=== PATIENT | female | born 1970 | race African-American/Black ===

== ENCOUNTER 2019-07-10 08:39 | Outpatient (CLI) | payer BC, SELFPAY ==
--- NOTE | 2019-07-10 | ECHO_ITS ---
Patient Info Name: Lurdes Strong Age: 48 years : 1970 Gender: Female Ht: 63 in Wt: 180 lbs BSA: 1.94 m2 HR: 69 bpm BP: 106 / 80 mmHg Heart Rhythm: Sinus Rhythm Technical Quality: Good Exam Date: 07/10/2019 9:23 AM Exam Location: [facility] Patient Status: Outpatient Admit Date: 07/10/2019 Staff Ordering Physician: Azar Sanches MD Sponge Diver: Frank Juarez RDCS, RT Attending Provider: Azar Sanches MD Referring Physician: Myron DOAN; Exam Type: CA echo doppler color flow Study Info Indications R01.1 - Cardiac murmur, unspecified Complete two-dimensional, color flow and Doppler transthoracic echocardiogram is performed. Summary 1. Left ventricular chamber size, wall thickness, systolic and diastolic function are normal with no regional wall motion abnormalities with an estimated ejection fraction of 60-65%. Global longitudinal strain is -21%, normal. 2. Borderline right ventricular enlargement. 3. Borderline dilatation of the inferior vena cava, 1.9 cm. 4. Trace mitral, tricuspid and pulmonic insufficiency. 5. Normal sinus rhythm. Left Ventricle Left ventricular chamber size, wall thickness, systolic and diastolic function are normal with no regional wall motion abnormalities with an estimated ejection fraction of 60-65%. Global longitudinal strain is -21%, normal. Left ventricular chamber dimension is normal. Left ventricular systolic function is normal, estimated at 60-65%. There is no increased left ventricular wall thickness. Left ventricular septal wall motion is normal. The left ventricular diastolic function is normal. Right Ventricle Right ventricular chamber dimension is mildly enlarged. Right ventricular systolic function is normal. Left Atria Left atrial chamber dimension is normal. Right Atria Right atrial chamber dimension is normal. Aortic Valve The aortic valve is trileaflet. There is no aortic valve sclerosis. There is no aortic valve stenosis. There is no aortic valve regurgitation. Pulmonic Valve The pulmonic valve is normal. There is no pulmonic valve stenosis. There is trace pulmonic regurgitation. Mitral Valve The mitral valve has normal leaflets. There is no mitral valve stenosis. There is trace mitral valve regurgitation. Tricuspid Valve The tricuspid valve leaflets are normal. There is no significant tricuspid valve stenosis. There is trace tricuspid valve regurgitation. No pulmonary hypertension, estimated pulmonary arterial systolic pressure is Empty. Pericardium/Pleural The pericardium appears normal. There is no pericardial effusion. Inferior Vena Cava Normal inferior vena cava with >50% collapse upon inspiration consistent with Empty right atrial pressure, 10 mmHg. Aorta The aortic root size at the sinus of Valsalva is normal. The prox ascending aorta size is normal. Left Ventricular Outflow Tract Name Value Normal LVOT 2D LVOT Diameter 2.0 cm LVOT Doppler LVOT Peak Gradient 3 mmHg LVOT Mean Gradient 2 mmHg LVOT VTI 17
== END 2019-07-10 08:40 | disposition home or self-care (01) ==
PROVIDERS: PCP Emergency Medicine; Visit Provider Emergency Medicine
DX: R01.1 Cardiac murmur, unspecified (principal)
CPT/HCPCS: 93306

== ENCOUNTER 2019-07-11 07:28 | Outpatient (CLI) | payer BC, SELFPAY ==
--- NOTE | ~2019-07-11 | MM_ITS ---
EXAMINATION: MM screening ish BI w reece HISTORY: Screening mammogram TECHNIQUE: Craniocaudal and mediolateral oblique 3-D tomosynthesis images were obtained and synthetic 2-D images were generated. CAD analysis was submitted and interpreted. COMPARISON: No prior mammogram is available for comparison at this institution. BREAST PARENCHYMAL COMPOSITION: The breasts are heterogeneously dense, which may obscure small masses . FINDINGS: There is no evidence of suspicious mass, calcification, or architectural distortion to sugg est malignancy in either breast. There has been no suspicious interval change. IMPRESSION: 1. No mammographic evidence of malignancy. 2. Recommend routine screening mammography in one year. BI-RADS Category 1: Negative Reviewed, dictated and finalized at location A.
== END 2019-07-11 07:29 | disposition home or self-care (01) ==
PROVIDERS: PCP Emergency Medicine; Visit Provider Emergency Medicine
DX: Z12.31 Encounter for screening mammogram for malignant neoplasm of breast (principal)
CPT/HCPCS: 77063; 77067

== ENCOUNTER 2019-07-16 11:49 | Outpatient (CLI) | payer BC, SELFPAY ==
--- NOTE | ~2019-07-16 | US_ITS ---
EXAMINATION: US thyroid DATE: 07/16/2019 12:31 INDICATION: Right thyroid nodule. TECHNIQUE: Multiple ultrasound images of the thyroid were obtained. COMPARISON: None. FINDINGS: The right thyroid lobe measures 7.0 x 3.2 x 3.0 cm. The left thyroid lobe measures 4.4 x 1.5 x 1.6 c m. There are numerous confluent solid nodules throughout right thyroid lobe. For example in the righ t thyroid lobe, there is a 3.0 cm solid, isoechoic, svhbjl-dbds-jwlh nodule with lobulated margin and punctate echogenic foci (TI-RADS TR5). In the right thyroid lobe, there is a 2.7 cm solid, isoechoic , kssas-arxi-tgns nodule with smooth margin without echogenic foci (TR3). In the right thyroid lobe, there is a 2.7 cm solid, isoechoic, voymr-fpwf-ckyd nodule with smooth margin without echogenic foci (TR3). IMPRESSION: 1. Multinodular goiter. Ultrasound-guided fine-needle aspiration of the 2 largest right thyroid nodul es is recommended. Reviewed, dictated and finalized at location A. IMPRESSION: 1. Multinodular goiter. Ultrasound-guided fine-needle aspiration of the [address] right thyroid nodules is recommended.
== END 2019-07-16 11:50 | disposition home or self-care (01) ==
PROVIDERS: PCP Emergency Medicine; Visit Provider Emergency Medicine
DX: E04.2 Nontoxic multinodular goiter (principal)
CPT/HCPCS: 76536

== ENCOUNTER 2019-08-01 13:20 | Outpatient (CLI) | payer BC, SELFPAY ==
--- NOTE | ~2019-08-01 | US_ITS ---
EXAMINATION: 1. US FNA additional 2. US FNA w image guidance DATE: 08/01/2019 15:36 INDICATION: Thyroid nodules. TECHNIQUE: The procedure and its benefits, risks, and benefits were discussed with the patient. Risks specifical ly discussed included bleeding. The patient verbalized understanding of the risks and agreed to proce ed. The neck was prepped and draped in the usual sterile manner. 1% lidocaine was used for local ane sthesia. Five passes were made with a 25G needle into the lesion in superior right thyroid lobe. Ap propriate needle location was documented with continuous sonographic guidance. 5 passes were made with a 25-gauge needle into the lesion in mid right thyroid lobe with ultrasound g uidance. There were no immediate complications. The patient understood to call the ordering physician for results after a week and a half and verbalized that understanding. FINDINGS: Grayscale ultrasound images demonstrate needles advanced into a 2.7 cm nodule in superior right thyro id lobe for biopsy. Grayscale ultrasound images demonstrate needles advanced into a 3.0 cm nodule in the right thyroid lobe. IMPRESSION: 1. Ultrasound-guided fine needle aspiration of a nodule in superior right thyroid lobe. 2. Ultrasound-guided fine-needle aspiration of a nodule in mid right thyroid lobe. Reviewed, dictated and finalized at location A. IMPRESSION: 1. Ultrasound-guided fine needle aspiration of a nodule in superior right thyr oid lobe. 2. Ultrasound-guided fine-needle aspiration of a nodule in mid right thyroid lo be.
== END 2019-08-01 13:21 | disposition home or self-care (01) ==
LOC: ANHIMG 13:23
PROVIDERS: PCP Emergency Medicine; Visit Provider Emergency Medicine
DX: E04.2 Nontoxic multinodular goiter (principal)
CPT/HCPCS: 10005; 10006; 88108; 88173; 88305

== ENCOUNTER 2021-08-03 22:25 | Emergency (ER) | payer OTHER, SELFPAY ==
[2021-08-03 22:32] VITALS: BP 105/74; PULSE 81; RESP 20; TEMP 36.1; O2SAT 97
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
[2021-08-04] MEDS: ACETAMINOPHEN 325 MG TABLET 650 MG PO (01:26)
[2021-08-04] MEDS: IBUPROFEN 600 MG TABLET PO (01:26)
[2021-08-04 01:56] VITALS: BP 110/68; PULSE 61; RESP 16; O2SAT 99
== END 2021-08-04 01:57 | disposition home or self-care (01) ==
PROVIDERS: Emergency Provider Emergency Medicine; PCP Emergency Medicine
DX: S39.012A Strain of muscle, fascia and tendon of lower back, initial encounter (principal); S16.1XXA Strain of muscle, fascia and tendon at neck level, initial encounter; X58.XXXA Exposure to other specified factors, initial encounter; Y92.212 Middle school as the place of occurrence of the external cause
CPT/HCPCS: 99283; A9270

== ENCOUNTER → 2022-08-31 13:27 | Outpatient (CLI) | payer OTHER, SELFPAY ==
--- NOTE | ~2022-08-31 | XR_ITS ---
EXAM: XR lumbar spine 2-3V DATE: 08/31/2022 14:51 HISTORY: LBP, Pain in left knee joint . COMPARISON: None available. FINDINGS: Decreased mineralization. Mild lumbar scoliosis. 5 nonrib-bearing lumbar-type vertebral bod ies. Pedicles intact. Trace anterolisthesis at L4-5 that increases to 3 mm in flexion. Vertebral body heights preserved. Mild multilevel disc space narrowing and marginal osteophytosis, most pronounced at L1-2. Mild multilevel lower lumbar facet hypertrophy and sclerosis. No fracture or dislocation. IMPRESSION: Osteopenia. Grade 1 dynamic listhesis at L4-5. Multilevel mild lumbar degenerative disc d isease and lower lumbar facet arthropathy. Reviewed, dictated and finalized at location K. IMPRESSION: Osteopenia. Grade 1 dynamic listhesis at L4-5. Multilevel mild lumb ar degenerative disc disease and lower lumbar facet arthropathy.
--- NOTE | ~2022-08-31 | XR_ITS ---
EXAM: XR knee LT 3V DATE: 08/31/2022 14:51 HISTORY: LBP, Pain in left knee joint . COMPARISON: None available. FINDINGS: Normal mineralization. No fracture or dislocation. No lytic or blastic lesion. Mild medial joint space narrowing. Mild tricompartmental osteophytosis. No erosion or periosteal change. Soft ti ssues within normal limits. IMPRESSION: Mild tricompartmental left knee osteoarthritis. Reviewed, dictated and finalized at location K.
== END ==
PROVIDERS: PCP Internal Medicine; Visit Provider Internal Medicine
DX: E04.9 Nontoxic goiter, unspecified (principal); Z13.820 Encounter for screening for osteoporosis; M85.88 Other specified disorders of bone density and structure, other site; M47.26 Other spondylosis with radiculopathy, lumbar region; M17.12 Unilateral primary osteoarthritis, left knee
CPT/HCPCS: 72100; 73562

== ENCOUNTER → 2022-09-08 15:56 | Outpatient (CLI) | payer OTHER, SELFPAY ==
--- NOTE | ~2022-09-08 | US_ITS ---
Thyroid ultrasound. Clinical History: Thyroid nodule COMPARISON: 07/16/2019 Findings: Real-time sonography of the thyroid gland was performed. The right lobe measures 6.5 x 4.7 x 5.2 cm. The left lobe measures 4.3 x 2.0 x 1.6 cm. The isthmus is 5 mm in AP diameter. There is a dominant heterogeneous mixed hyperechoic and isoechoic nodule at the right midpole measuri ng 3.6 x 4.2 x 3.2 cm in size. There is a solid mildly hypoechoic nodule at the right upper pole kennedy uring 2.1 x 1.8 x 1.9 cm. There is a 0.9 cm hypoechoic solid nodule at the left upper pole. Impression: Multiple thyroid nodules are similar in distribution to prior exam, however the dominant nodule in th e right thyroid lobe is increased in size. Consider FNA of this dominant nodule, if not previously pe rformed. Reviewed, dictated and finalized at location . Impression: Multiple thyroid nodules are similar in distribution to prior exam, however the dominant nodule in the right thyroid lobe is increased in size. Consider FNA o f this dominant nodule, if not previously performed.
== END ==
PROVIDERS: PCP Internal Medicine; Visit Provider Internal Medicine
DX: E04.2 Nontoxic multinodular goiter (principal)
CPT/HCPCS: 76536

== ENCOUNTER → 2022-12-12 12:31 | Outpatient (CLI) | payer OTHER, SELFPAY ==
--- NOTE | ~2022-12-12 | MM_ITS ---
EXAMINATION: MM screening ish BI w reece HISTORY: Screening mammogram TECHNIQUE: Craniocaudal and mediolateral oblique 3-D tomosynthesis images were obtained and synthetic 2-D images were generated. CAD analysis was submitted and interpreted. COMPARISON: 07/11/2019 Bilateral screening mammogram BREAST PARENCHYMAL COMPOSITION: The breasts are heterogeneously dense, which may obscure small masses . FINDINGS: There is no evidence of suspicious mass, calcification, or architectural distortion to sugg est malignancy in either breast. There has been no suspicious interval change. IMPRESSION: 1. No mammographic evidence of malignancy. 2. Recommend routine screening mammography in one year. BI-RADS Category 1: Negative Reviewed, dictated and finalized at location A.
--- NOTE | ~2022-12-12 | DEXA_ITS ---
Bone Density Report Name: ERVIN ARENAS Age: 52 Sex: Female Ethnicity: Black Date of : 1970 Indication: postmenopausal; screening for osteoporosis; Referring Provider: JUAN LUIS, [facility] Study: Bone densitometry was performed. Exam Date: December 12, 2022 Accession number: [id number] Bone Density: Region BMD T-score Z-score Classification AP Spine (L1-L4) 0.978 -0.6 -0.5 Normal Femoral Neck (Left) 0.838 -0.1 -0.1 Normal Total Hip (Left) 0.893 -0.4 -0.4 Normal Femoral Neck (Right) 0.844 0.0 -0.1 Normal Total Hip (Right) 0.880 -0.5 -0.5 Normal Total Hip Mean 0.887 -0.5 -0.5 Normal World Health Organization criteria for BMD impression classify patients as: Normal (T-score at or above -1.0), Osteopenia (T-score between -1.0 and -2.5), or Osteoporosis (T-score at or below -2.5). 10-year Fracture Risk: FRAX not reported because: All T-scores for Spine Total, Hip Total, Femoral Neck at or above -1.0 Clinical Information Provided by Patient: Has used the following medications: Vitamin D, MTV Patient maximum height was 63.75 Menopause Age: 51 No regular weight bearing exercise Drinks caffeinated beverages Onset of menses at age 13 Number of children 4 Impression: The patient has normal bone mass. Discussion: BONE DENSITY IS ABOVE THE MINIMUM DESIRABLE LEVEL AT ALL SKELETAL SITES TESTED. This patient?s bone mineral density is above the minimum desirable level (T-score -1.0 or better) at all sites measured. The patient should follow a healthful lifestyle (good nutrition with adequate calcium and vitamin D, and appropriate weight-bearing exercise). Follow-Up: Consider repeating this study in 5 years or sooner if there is some new clinical indication. Reported by: LEONIDAS on 12/12/2022 1:29:00 PM. Reviewed, dictated and finalized at location AAlvin HERNANDEZ
== END ==
PROVIDERS: PCP Internal Medicine; Visit Provider Internal Medicine
DX: Z12.31 Encounter for screening mammogram for malignant neoplasm of breast (principal); Z13.820 Encounter for screening for osteoporosis; Z78.0 Asymptomatic menopausal state
CPT/HCPCS: 77063; 77067; 77080

== ENCOUNTER 2023-06-06 00:54 | Emergency (ER) | payer OTHER, SELFPAY ==
--- NOTE | ~2023-06-06 | XR_ITS ---
Portable chest x-ray Comparison: 01/27/2014 Clinical History: Shortness of breath Findings: Lungs are clear, without focal consolidation or pleural effusion. Cardiomediastinal silho uette is stable. Bones and soft tissues are unremarkable. Impression: Normal chest. Reviewed, dictated and finalized at location . Impression: Normal chest.
--- NOTE | 2023-06-06 00:55 | ECG_ITS ---
Measurements Intervals [place] Rate: 67 P: 67 SC: 199 QRS: -4 QRSD: 105 T: 27 QT: 402 QTc: 426 Interpretive Statements SINUS RHYTHM INCOMPLETE RIGHT BUNDLE BRANCH BLOCK BORDERLINE ECG NO PREVIOUS ECG AVAILABLE FOR COMPARISON Electronically Signed On 06-06-2023 6:27:34 CDT by Addison Graves D.O.
[2023-06-06] MEDS: ASPIRIN 81 MG CHEWABLE TABLET 324 MG PO (01:05)
[2023-06-06 01:07] VITALS: BP 145/87; PULSE 68; RESP 18; TEMP 36.2; O2SAT 100
[2023-06-06 01:07] LABS: Basophils Percent Auto 0.5 % (0.2-1.2); Eosinophils Absolute Auto 0.1 K/mm3 (0-0.3); Eosinophils Percent Auto 1.1 % (0-4.4); Hematocrit 42.4 % (37.0-47.0); Hemoglobin 13.4 g/dL (12.0-15.0); Immature Granulocyte Absolute 0.01 K/mm3 (0.00-0.031); Immature Granulocyte Percent A 0.2 % (0-0.5); Lymphocytes Absolute Auto 3.15 K/mm3 (0.9-3.2); Lymphocytes Percent Auto 48.7 % (18.3-44.2); Mean Corpuscular HGB Conc 31.6 g/dl (32-36); Mean Corpuscular Hemoglobin 30.6 pg (26-34); Mean Corpuscular Volume 96.8 fl (80-100); Mean Platelet Volume 9.3 fl (7.4-10.4); Monocytes Absolute Auto 0.4 K/mm3 (0.1-0.6); Monocytes Percent Auto 5.9 % (2.6-8.5); Neutrophils Absolute Auto 2.8 K/mm3 (1.3-6.7); Neutrophils Percent Auto 43.6 % (45.5-73.1); Platelet Count Result 281 k/mm3 (150-375); Red Blood Count 4.38 M/mm3 (4.2-5.4); Red Cell Distribution Width 12.2 % (11.5-14.5); White Blood Count 6.5 K/mm3 (4.5-10.0)
[2023-06-06 01:12] VITALS: PULSE 76
[2023-06-06 01:14] VITALS: BP 145/87; PULSE 70; RESP 18; TEMP 36.2; O2SAT 100
[2023-06-06 01:18] LABS: INR 0.9
[2023-06-06 01:19] LABS: Alanine Aminotransferase 16 U/L (6-35); Albumin Level 4.7 g/dL (3.5-5.1); Alkaline Phosphatase 71 U/L (38-126); Anion Gap 4 mmol/L (8-16); Aspartate Amino Transferase 24 U/L (14-36); Bilirubin,Total 0.4 mg/dL (0.2-1.3); Blood Urea Nitrogen 9 mg/dL (7-17); Calcium 9.9 mg/dL (8.4-10.2); Carbon Dioxide 33 mmol/L (22-30); Chloride 104 mmol/L (98-107); Estimated CRCL calculation 73 ml/min; Estimated Glomerular Filt Rate > 60; Glucose 105 mg/dL (65-110); Lipase 39 U/L (23-300); Partial Thromboplastin Time 31.6 Seconds (22.3-36.8); Potassium 3.6 mmol/L (3.4-5.0); Sodium 141 mmol/L (137-145)
[2023-06-06 01:30] LABS: Troponin I < 0.012 ng/mL (0.000-0.034)
--- NOTE | 2023-06-06 01:36 | PC.NURSE ---
Pt is refusing nitro tablet(s) at this time. Pt states she believes her chest pain is an adverse reaction to iodine that she was given yesterday for a ct scan so she is afraid to keep putting things in her body . She states she wants to see what the test results say first . EDP aware.
--- NOTE | 2023-06-06 01:47 | ED.GENADULT ---
HPI - General Adult General Chief complaint: Chest Pain Stated complaint: Chest heaviness, SOB Time Seen by Provider: 06/06/23 01:02 History of Present Illness HPI narrative: Patient 52-year-old female who presents emergency department with chief complaint of chest heaviness and shortness of breath patient reports that she had a thyroidectomy on the of last month patient states since then she has been having some difficulty with shortness of breath but reports has been getting some more shortness of breath. The patient states that she was seen at [facility] in the last day or [address] scan to look for pulmonary embolism the patient reports she was told this was negative for PE. Patient states that it feels like there is heaviness in her chest and reports that is worse with exertion Related Data Allergies Allergy/AdvReac Type Severity Reaction Status Date / Time No Known Allergies Allergy Verified 06/06/23 01:16 Review of Systems Review of Systems: A 10 system review of systems was completed on the patient and is negative except for what is stated in the HPI. Nursing and ancillary documentation was reviewed. PMFSH Past Medical History Medical History No significant past medical history Surgical History Surgical History H/O section x4 History of dilation and curettage Social History Social History Smoking status: Never smoker Living arrangements: with family Gender identity (if verbalized by the patient): Female Exam Narrative: GENERAL: Well-appearing, well-nourished, and in no acute distress. HEAD: Normocephalic, atraumatic. EYES: PERRLA and EOMI. ENT: Nares clear, no rhinorrhea or epistaxis. Mucous membranes moist. NECK: Supple. CHEST: Clear to auscultation. No respiratory distress. HEART: Regular rate and rhythm. No murmur heard. Normal peripheral pulses. ABDOMEN: Soft, nontender, nondistended, normal active bowel sounds. EXTREMITIES: Normal range of motion. No edema. SKIN: Warm, dry, no rash. NEURO: No focal deficits. Alert and oriented x3. PSYCH: Normal mood and affect. Course Vital Signs Vital signs: Vital Signs Temperature 36.2 C L 06/06/23 01:07 Pulse Rate 68 06/06/23 01:07 Respiratory Rate 18 06/06/23 01:07 Blood Pressure 145/87 H 06/06/23 01:07 Pulse Oximetry 100 06/06/23 01:07 Oxygen Delivery Room Air 06/06/23 01:07 Temperature 36.2 C L 06/06/23 01:14 Pulse Rate 62 06/06/23 03:36 Respiratory Rate 17 06/06/23 03:36 Blood Pressure 127/80 06/06/23 03:36 Pulse Oximetry 98 06/06/23 03:36 Oxygen Delivery Room Air 06/06/23 01:14 Medical Decision Making MDM Narrative Medical decision making narrative: Differential diagnosis includes ACS, pneumothorax, pulmonary embolism. Records were obtained from [facility] that showed a pulmonary embolism study that was negative Laboratory studies were obtained showed normal CBC CMP was within normal limits BNP was normal troponin was 0 hour in the 3 hour Chest x-ray showed no pneumothorax EKG showed incomplete right bundle branch block rate of [address] elevation or ST depression Vital Signs Vital Signs: Vital Signs Temperature 36.2 C L 06/06/23 01:07 Pulse Rate 68 06/06/23 01:07 Respiratory Rate 18 06/06/23 01:07 Blood Pressure 145/87 H 06/06/23 01:07 Pulse Oximetry 100 06/06/23 01:07 Oxygen Delivery Room Air 06/06/23 01:07 Temperature 36.2 C L 06/06/23 01:14 Pulse Rate 62 06/06/23 03:36 Respiratory Rate 17 06/06/23 03:36 Blood Pressure 127/80 06/06/23 03:36 Pulse Oximetry 98 06/06/23 03:36 Oxygen Delivery Room Air 06/06/23 01:14 Lab Data 06/06/23 01:02 06/06/23 01:02 Labs: Lab Results
[2023-06-06 02:44] LABS: NT Pro B Type Natriuretic Pept 36 pg/mL (19.9-100)
[2023-06-06 03:36] VITALS: BP 127/80; PULSE 62; RESP 17; O2SAT 98
[2023-06-06 05:15] LABS: Troponin I < 0.012 ng/mL (0.000-0.034)
[2023-06-06 05:45] VITALS: BP 133/85; PULSE 64; RESP 17; O2SAT 100
== END 2023-06-06 05:45 | disposition home or self-care (01) ==
PROVIDERS: Emergency Provider Emergency Medicine; PCP Internal Medicine
DX: R07.89 Other chest pain (principal); I45.10 Unspecified right bundle-branch block
CPT/HCPCS: 36415; 71045; 80053; 83690; 83880; 84484; 85025; 85610; 85730; 93005; 99284; A9270

== ENCOUNTER 2024-10-06 18:24 | Emergency (ER) | payer SELFPAY ==
--- OUTSIDE RECORDS SUMMARY | 2024-10-06 18:27 | XMS_ITS | Data Portability ---
Author Organization [facility] [employer] Address [address] [address] Assessment Encounter Date Assessment Date Assessment LastModified by Organization Details LastModified Time 05/30/2023 05/30/2023 Patient presente d for follow up. Studies ordered as below. Discussed plan with patient/caregiver , who expressed understanding. Follow up as noted below. [email or web address] Not available 05/30/2023 13:43:34 08/07/2023 08/07/2023 Patient presente d for follow up. Studies ordered as below. Discussed plan with patient/caregiver , who expressed understanding. Follow up as noted below. Not available 08/07/2023 13:00:27 03/17/2024 03/17/2024 Recommends healthy nutrition, including a diet rich in fruits and vegetables, minimizing simple carbohydrates, salt, and saturated fats. Encouraged regular cardiovascular exercise such as walking at least 30 minutes daily, 5 times per week. Not available 03/17/2024 15:36:04 09/15/2024 09/15/2024 Recommends healthy nutrition, including a diet rich in fruits and vegetables, minimizing simple carbohydrates, salt, and saturated fats. Encouraged regular cardiovascular exercise such as walking at least 30 minutes daily, 5 times per week. Not available 09/15/2024 13:37:38 Plan of Treatment Reminders Order Date Submit Date Provider Last Modified By Organization Details Last Modified Time Details Appointments ESTABLISH ED PATIENT 15 2024 10:15A M Frank Mcknight MD Not available Not available Not available Lab lipid panel, serum 2024 025 [employer] [facility], [facility], [address], [place], [address], 09/15/2024 13:40:04 CMP, serum or plasma 2024 025 [facility], [address], [address], [place], [address], 09/15/2024 13:40:04 TSH + free T4, serum 2024 025 [facility], [address], [address], [place], [address], 09/15/2024 13:40:04 T3, free, serum or plasma 2024 025 [facility] [employer] [facility], [address], [address], [place], [address], 09/15/2024 13:40:04 vitamin D, 25-hydrox y, total, serum 2024 025 [facility] [employer] [facility], [address], [address], [place], [address], 09/15/2024 13:40:04 CBC w/ auto diff 2024 025 [facility] [employer] [facility], [address], [address], [place], [address], 09/15/2024 13:40:04 PT/PTT, plasma 2023 024 [employer] [facility], [address], [address], [place], [address], 04/13/2024 08:58:29 TSH + free T4, serum 2023 024 [employer] [facility], [address], [place], [address], 04/13/2024 08:58:31 T3, free, serum or plasma 2023 024 [facility], [address], [address], [place], [address], 04/13/2024 08:58:33 CBC w/ auto diff 2023 024 [facility], [address], [address], [place], [address], 04/13/2024 08:58:32 lipid panel, serum 2023 024 [facility], [address], [address], [place], [address], 04/13/2024 08:58:28 CMP, serum or plasma 2023 024 [facility], [address], [address], [place], [address], 04/13/2024 08:58:31 vitamin D, 25-hydrox y, total, serum 2023 [facility], [address], [address], [place], [address], 04/13/2024 08:58:34 vitamin D, 25-hydrox y, total, serum 2023 024 [facility], [address], [address], [place], [address], 11/01/2023 13:05:44 CBC w/ auto diff 2023 024 [facility], [address], [address] [address], [place], [address], 11/01/2023 13:05:51 PT/PTT, plasma 2023 024 [facility], [address], [address], [place], [address], 11/01/2023 13:05:45 TSH + free T4, serum 2023 024 [employer] [facility], [address], [address], [place], [address], 11/01/2023 13:05:52 T3, free, serum or plasma 2023 024 [facility] [facility], [address], [address], [place], [address], 11/01/2023 13:05:39 CBC w/ auto diff 2023 024 [facility] [facility], [address], [address], [place], [address], 09/13/2023 03:29:18 lipid panel, serum 2023 024 [facility], [address], [address], [place], [address], 09/13/2023 03:29:15 CMP, serum or plasma 2023 024 [facility] [facility], [address], [address], [place], [address], 09/13/2023 03:29:17 vitamin D, 25-hydrox y, total, serum 2023 024 [facility] [facility], [address], [address], [place], [address], 09/13/2023 03:29:19 TSH + free T4, serum 2023 024 [facility] [facility], [address], [address], [place], [address], 09/13/2023 03:29:16 T3, free, serum or plasma 2023 024 [facility] [facility], [address], [address], [place], [address], 09/13/2023 03:29:18 CMP, serum or plasma 2023 024 [facility] [facility], [address], [address], [place], [address], 06/01/2023 11:17:49 D-dimer, quant, plasma 2023 024 [facility] [employer] [facility], [address], [address], [place], [address], 05/30/2023 14:37:25 CBC w/ auto diff 2023 024 [facility] [facility], [address], [address], [place], [address], 07/12/2023 00:26:03 vitamin D, 25-hydrox y, total, serum 2023 024 [facility] [employer] [facility], [address], [address], [place], [address], 05/30/2023 14:37:27 TSH + free T4, serum 2023 024 [facility] [employer] [facility], [address], [address], [place], [address], 05/30/2023 14:37:24 T3, free, serum or plasma 2023 024 [facility], [address], [address], [place], [address], 06/01/2023 11:17:50 Referral gynecolog ist referral 2024 025 [facility], [address], [address], [place], [address], 09/18/2024 11:26:09 sleep medicine referral - -- CPAP Titration 2024 025 IZABELA Garcia And/Or Dr. Herrera - [facility], [address] , [address], [place], [address], 09/15/2024 13:52:55 gynecolog ist referral 2023 024 , [address], [address], [place], [address], 04/14/2024 08:22:50 sleep medicine referral 2023 024 SARMAD Garcia And/Or Dr. Herrera - [facility], [address], [address], [place], [address], 09/04/2024 15:36:44 gynecolog ist referral 2023 024 , [address], [address], [place], [address], 09/04/2023 08:19:21 podiatris t referral 2023 024 [facility], [address] [address], [address], [place], [address], 08/01/2024 08:21:43 podiatris t referral 2023 024 [facility], [address], [address], [place], [address], 05/26/2024 08:17:56 Procedures None recorded. Surgeries None recorded. Imaging XR, hip + pelvis, bilateral [address] [facility], [address], [place], [address], 09/22/2024 08:08:36 CT, chest, w/o contrast [address] [facility], [address] [facility], [place], [address], 09/22/2024 08:08:36 XR, hip + pelvis, bilateral [address] [facility], [address], [place], [address], 03/25/2024 10:57:20 CT, chest, w/o contrast 2023 024 [facility], [address], [place], [address], 03/25/2024 10:57:20 XR, hip + pelvis, bilateral [address] [facility], [address], [place], [address], 11/08/2023 09:22:18 CT, chest, w/o contrast [address] [facility], [address], [place], [address], 11/26/2023 08:18:54 MAMMO, screening , digital, bilateral 2023 024 [facility], [address], [place], [address], 03/21/2024 11:34:30 electroca rdiogram 2023 024 [facility], [facility], [address], [place], [address], 05/30/2023 15:54:31 XR, foot, 3 or more view 2023 024 [facility], [address], [address], [place], [address], 06/06/2023 08:16:38 Medication Orders levothyro xine 137 mcg tablet [address] [facility], [address] [place], [address], 09/15/2024 13:41:06 levothyro xine 137 mcg tablet 2023 024 [facility], [address] [place], [address], 03/17/2024 16:08:07 levothyro xine 137 mcg tablet 2023 024 pc1 [facility], [address] [place], [address], 03/17/2024 15:46:49 levothyro xine 137 mcg tablet 2023 024 pc1 [facility], [address] [place], [address], 05/30/2023 14:37:04 Patient TargetsNo targets recorded. Patient Instructions Encounter Date Encounter Id Patient Instructions Last Modified By Organization Details Last Modified Time 05/30/2023 [id number] advised to lose weight lincoln Not available 05/30/2023 14:37:04 08/07/2023 [id number] advised to lose weight Not available 08/07/2023 12:59:40 11/01/2023 [id number] heart-healthy diet: care instructions lincoln Not available 11/01/2023 13:01:57 03/17/2024 [id number] advised to lose weight Not available 03/17/2024 16:07:58 Discussed and explained advance directives such as standard forms to the . Face to face discussion lasted for a duration of ___ minutes. [email or web address] Not available 03/17/2024 15:24:14 09/15/2024 [id number] advised to lose weight lincoln Not available 09/15/2024 13:40:04 Reason for Referral Service Order Dispatcher Chief Referral for Pain in left foot Referring Physician: Frank Mcknight, Internal Medicine, Encounter Date: 05/30/2023 Service Order Dispatcher Chief Referral for Pain in left foot Referring Physician: Frank Mcknight, Internal Medicine, Encounter Date: 08/07/2023 [employer] Referral for Gy necologic examination Referring Physician: Frank Mcknight, Internal Medicine, Encounter Date: 08/07/2023 [employer] Referral for Gy necologic examination Referring Physician: Frank Mcknight Internal Medicine, Encounter Date: 03/17/2024 Sleep Medicine Referral for Obstructive sleep apnea of adult Referring Physician: Frank Mcknight Internal Medicine, Encounter Date: 03/17/2024 [employer] Referral for Gy necologic examination Referring Physician: Frank Mcknight Internal Medicine, Encounter Date: 09/15/2024 Sleep Medicine Referral for Obstructive sleep apnea syndrome -- CPAP Titration Referring Physician: Frank Mcknight Internal Medicine, Encounter Date: 09/15/2024 Results Created Date Observation Date Name Description Value Unit Range Abnormal Flag Note LastModifiedBy Organization Detail LastModifiedTime 05/30/19 24 05/30/2023 CBC WITH AUTO- DIFFE RENTI AL WBC 5.1 10*3/ uL 3.4-10 .8 Not Available [facility] [address] [facility] [address], [place], [address], 06/01/2023 11:17:48 05/30/19 24 05/30/2023 CBC WITH AUTO- DIFFE RENTI AL RBC 4.28 10*6/ uL 3.80-5 .30 Not Available [facility] [address] [facility] [address], [place], [address], 06/01/2023 11:17:48 05/30/19 24 05/30/2023 CBC WITH AUTO- DIFFE RENTI AL HGB 13.2 g/dL 11.1-1 5.9 Not Available [facility] [address] [facility] [address], [place], [address], 06/01/2023 11:17:48 05/30/19 24 05/30/2023 CBC WITH AUTO- DIFFE RENTI AL HCT 41.5 % 34.0-4 6.6 Not Available [facility] [address] [facility] [address], [place], [address], 06/01/2023 11:17:48 05/30/19 24 05/30/2023 CBC WITH AUTO- DIFFE RENTI AL MCV 97 fL 79-97 Not Available [facility] [address], [place], [address], 06/01/2023 11:17:48 05/30/19 24 05/30/2023 CBC WITH AUTO- DIFFE RENTI AL MCH 30.8 pg 26.6-3 3.0 Not Available [facility] [address], [place], [address], 06/01/2023 11:17:48 05/30/19 24 05/30/2023 CBC WITH AUTO- DIFFE RENTI AL MCHC 31.8 g/dL 31.5-3 5.7 Not Available [facility] [address], [place], [address], 06/01/2023 11:17:48 05/30/19 24 05/30/2023 CBC WITH AUTO- DIFFE RENTI AL RDW 12.9 % 11.5-1 4.5 Not Available [facility] [address], [place], [address], 06/01/2023 11:17:48 05/30/19 24 05/30/2023 CBC WITH AUTO- DIFFE RENTI AL platelets 351 10*3/ uL 150-40 0 Not Available [facility] [address], [place], [address], 06/01/2023 11:17:48 05/30/19 24 05/30/2023 CBC WITH AUTO- DIFFE RENTI AL MPV 10 fL 9-13 Not Available [facility] [address], [place], [address], 06/01/2023 11:17:48 05/30/19 24 05/30/2023 CBC WITH AUTO- DIFFE RENTI AL neutrophils 43.1 % 40.0-7 4.0 Not Available [facility] [address], [place], [address], 06/01/2023 11:17:48 05/30/19 24 05/30/2023 CBC WITH AUTO- DIFFE RENTI AL absolute neutrophils 2.21 10*3/ uL 1.40-7 .00 Not Available [facility] [address] [facility] [address], [place], [address], 06/01/2023 11:17:48 05/30/19 24 05/30/2023 CBC WITH AUTO- DIFFE RENTI AL lymphocytes 50.0 % 14.0-4 6.0 high Not Available [facility] [address] [facility] [address], [place], [address], 06/01/2023 11:17:48 05/30/19 24 05/30/2023 CBC WITH AUTO- DIFFE RENTI AL absolute lymphocytes 2.56 10*3/ uL 0.70-3 .10 Not Available [facility] [address] [facility] [address], [place], [address], 06/01/2023 11:17:48 05/30/19 24 05/30/2023 CBC WITH AUTO- DIFFE RENTI AL monocytes 5.1 % 4.0-12 .0 Not Available [facility] [address] [facility] [address], [place], [address], 06/01/2023 11:17:48 05/30/19 24 05/30/2023 CBC WITH AUTO- DIFFE RENTI AL absolute monocytes 0.26 10*3/ uL 0.10-0 .90 Not Available [facility] [address] [facility] [address], [place], [address], 06/01/2023 11:17:48 05/30/19 24 05/30/2023 CBC WITH AUTO- DIFFE RENTI AL eosinophils 1.2 % 0.0-5. 0 Not Available [facility] [address] [facility] [address], [place], [address], 06/01/2023 11:17:48 05/30/19 24 05/30/2023 CBC WITH AUTO- DIFFE RENTI AL absolute eosinophils 0.06 10*3/ uL 0.00-0 .40 Not Available [facility] [address] [facility] [address], [place], [address], 06/01/2023 11:17:48 05/30/19 24 05/30/2023 CBC WITH AUTO- DIFFE RENTI AL basophils 0.4 % 0.0-3. 0 Not Available [facility] [address] [facility] [address], [place], [address], 06/01/2023 11:17:48 05/30/19 24 05/30/2023 CBC WITH AUTO- DIFFE RENTI AL absolute basophils 0.02 10*3/ uL 0.00-0 .20 Not Available [facility] [address] [facility] [address], [place], [address], 06/01/2023 11:17:48 05/30/19 24 05/30/2023 CBC WITH AUTO- DIFFE RENTI AL imm. gran. 0.2 % 0.0-2. 0 Not Available [facility] [address] [facility] [address], [place], [address], 06/01/2023 11:17:48 05/30/19 24 05/30/2023 CBC WITH AUTO- DIFFE RENTI AL abs. imm. gran. 0.01 10*3/ uL 0.00-0 .10 Not Available [facility] [address] [facility] [address], [place], [address], 06/01/2023 11:17:48 05/30/19 24 05/30/2023 COMPR EHENS DEEP METAB OLIC PANEL sodium 140 mmol/ L 134-14 4 Not Available [facility] [address] [facility] [address], [place], [address], 06/01/2023 11:17:49 05/30/19 24 05/30/2023 COMPR EHENS DEEP METAB OLIC PANEL potassium 4.1 mmol/ L 3.5-5. 2 Not Available [facility] [address] [facility] [address], [place], [address], 06/01/2023 11:17:49 05/30/19 24 05/30/2023 COMPR EHENS DEEP METAB OLIC PANEL chloride 103 mmol/ L 97-108 Not Available [facility] [address] [facility] [address], [place], [address], 06/01/2023 11:17:49 05/30/19 24 05/30/2023 COMPR EHENS DEEP METAB OLIC PANEL carbon dioxide (co2) 28.0 mmol/ L 18.0-2 9.0 Not Available [facility] [address] [facility] [address], [place], [address], 06/01/2023 11:17:49 05/30/19 24 05/30/2023 COMPR EHENS DEEP METAB OLIC PANEL glucose 93 mg/dL 65-99 Tiesha l Fasti ng: < 100 mg/dL Impai red Fasti n - 125 mg/dL Diagn ostic of Diabe malik: => 126 mg/dL Ameri can [facility], 2008 Not Available [facility] [address] [facility] [address], [place], [address], 06/01/2023 11:17:49 05/30/19 24 05/30/2023 COMPR EHENS DEEP METAB OLIC PANEL urea nitrogen (BUN) 10 mg/dL 6-20 Not Available [facility] [address] [facility] [address], [place], [address], 06/01/2023 11:17:49 05/30/19 24 05/30/2023 COMPR EHENS DEEP METAB OLIC PANEL creatinine 0.84 mg/dL 0.57-1 .00 Not Available [facility] [address] [facility] [address], [place], [address], 06/01/2023 11:17:49 05/30/19 24 05/30/2023 COMPR EHENS DEEP METAB OLIC PANEL eGFR for nonafrican AM 71 mL/mi nute/ 1.73_ m2 >59 Not Available [facility] [address] [facility] [address], [place], [address], 06/01/2023 11:17:49 05/30/19 24 05/30/2023 COMPR EHENS DEEP METAB OLIC PANEL eGFR for AM 86 mL/mi nute/ 1.73_ m2 >59 MDRD Study Equat ion: The calcu lated GFR is NOT appli cable for pedia tric (< 18 years old) and > 70 year old patie nts and patie nts that are NOT of stead [place] . Not Available [facility] [address] [facility] [address], [place], [address], 06/01/2023 11:17:49 05/30/19 24 05/30/2023 COMPR EHENS DEEP METAB OLIC PANEL calcium 9.8 mg/dL 8.7-10 .2 Not Available [facility] [address] [facility] [address], [place], [address], 06/01/2023 11:17:49 05/30/19 24 05/30/2023 COMPR EHENS DEEP METAB OLIC PANEL protein, total 7.4 gm/dL 6.4-8. 3 Not Available [facility] [address] [facility] [address], [place], [address], 06/01/2023 11:17:49 05/30/19 24 05/30/2023 COMPR EHENS DEEP METAB OLIC PANEL albumin 4.6 gm/dL 3.5-5. 2 Not Available [facility] [address] [facility] [address], [place], [address], 06/01/2023 11:17:49 05/30/19 24 05/30/2023 COMPR EHENS DEEP METAB OLIC PANEL bilirubin, total 0.30 mg/dL 0.00-1 .20 Not Available [facility] [address] [facility] [address], [place], [address], 06/01/2023 11:17:49 05/30/19 24 05/30/2023 COMPR EHENS DEEP METAB OLIC PANEL alkaline phosphatase (ALP) 76 U/L 39-117 Not Available [facility] [address] [facility] [address], [place], [address], 06/01/2023 11:17:49 05/30/19 24 05/30/2023 COMPR EHENS DEEP METAB OLIC PANEL aspartate aminotransfe rase (AST) 14 U/L 0-32 Not Available [facility] [address] [facility] [address], [place], [address], 06/01/2023 11:17:49 05/30/19 24 05/30/2023 COMPR EHENS DEEP METAB OLIC PANEL alanine aminotransfe rase (ALT) 9 U/L 0-33 Not Available [facility] [address] [facility] [address], [place], [address], 06/01/2023 11:17:49 05/30/19 24 05/30/2023 COMPR EHENS DEEP METAB OLIC PANEL A/G ratio (calculated) 1.6 ratio 1.0-2. 7 Not Available [facility] [address] [facility] [address], [place], [address], 06/01/2023 11:17:49 05/30/19 24 05/30/2023 COMPR EHENS DEEP METAB OLIC PANEL globulin (calculated) 2.8 gm/dL 1.5-3. 8 Not Available [facility] [address] [facility] [address], [place], [address], 06/01/2023 11:17:49 05/30/19 24 05/30/2023 COMPR EHENS DEEP METAB OLIC PANEL BUN/creatini ne ratio (calculated) 11.9 ratio 8.0-20 .0 Not Available [facility] [address] [facility] [address], [place], [address], 06/01/2023 11:17:49 05/30/19 24 05/30/2023 COMPR EHENS DEEP METAB OLIC PANEL serum hemolysis index NORMAL index normal Not Available [facility] [address] [facility] [address], [place], [address], 06/01/2023 11:17:49 05/30/19 24 05/30/2023 FREE T3 triiodothyro nine (T3), free 3.64 pg/mL 2.00-4 .40 NOTE: REFER ENCE RANGE S FOR PATIE NTS < 16 YEARS OF AGE HAS NOT BEEN VALID ATED. FOR INFOR MATIO N ONLY. PREGN ANT FEMAL E: 1st Trime ster: 1.6-3 .3 pg/mL 2nd Trime ster: Not Estab lishe d 3rd Trime ster: 1.0-3 .2 pg/mL Not Available [facility] [address] [facility] [address], [place], [address], 06/01/2023 11:17:49 05/30/19 24 05/30/2023 FREE T4 thyroxine (T4), free 2.16 NG/dL 0.82-1 .77 high Not Available [facility] [address] [facility] [address], [place], [address], 06/01/2023 11:17:50 05/30/19 24 05/30/2023 THYRO ID-ST IM. HORMO NE (TSH) , HIGH- SENSI TIVE thyroid-stim . hormone (TSH), hs 0.04 uIU/m L 0.27-4 .20 low Not Available [facility] [address] [facility] [address], [place], [address], 06/01/2023 11:17:51 05/30/19 24 05/30/2023 VITAM IN D, 25-HY DROXY TOTAL vitamin D, total 26.6 NG/mL 30.0-1 00.0 low The Vitam in D Assay formu latio n has been updat ed to offer direc t trace abili ty to ID-LC -MS/M S Refer ence Measu remen t Proce dure along with a reduc tion in bioti n inter feren ce. Defic ient: < 20 ng/mL Insuf ficie nt: 21 - 29 ng/mL Suffi cient : 30 - 100 ng/mL Poten tial Intox icati on: > 100 ng/mL Not Available [facility] [address] [facility] [address], [place], [address], 06/01/2023 11:17:51 05/30/19 24 06/01/2023 D-DIM ER D-dimer 0.67 mg/L_ feu 0.00-0 .49 high Accor ding to the assay manuf actur er's publi shed packa ge inser t, a tiesha l (<0.5 0 mg/L FEU) D-dim er resul t in conju nctio n with a non-h igh clini sophie proba bilit y asses sment , exclu moises deep vein throm bosis (DVT) and pulmo nary embol ism (PE) with high sensi tivit y. D-dim er value s incre ase with age and this can make VTE exclu seferino of an older popul ation diffi cult. To addre ss this, the Ameri can Colle ge of Physi cians , based on best avail able evide nce and recen t guide lines , recom mends that clini cians use age-a djust ed D-dim er thres holds in patie nts great er than 50 years of age with: a) a low proba bilit y of PE who do not meet all Pulmo nary Embol ism Rule Out Crite ayana, or b) in those with inter media te proba bilit y of PE. The formu la for an age-a djust ed D-dim er cut-o ff is age/ 100. For examp le, a 59 year old patie nt would have an age-a djust ed cut-o ff of 0.60 mg/L FEU and an 80 year old 0.80 mg/L FEU. Not Available [facility] [address], [place], [address], 06/01/2023 11:17:52 09/12/19 24 09/13/2023 LIPID PANEL , STAND SINCERE cholesterol, total 261 mg/dL <200 high Not Available [address] [address] [place], [address], 09/13/2023 03:29:15 09/12/1909/13/2023 LIPID PANEL , STAND SINCERE HDL cholesterol 74 mg/dL > or = 50 normal Not Available [address], [address], 09/13/2023 03:29:15 09/12/19 24 09/13/2023 LIPID PANEL , STAND SINCERE triglyceride s 159 mg/dL <150 high Not Available [facility] [address] [address] [place], [address], 09/13/2023 03:29:15 09/12/19 24 09/13/2023 LIPID PANEL , STAND SINCERE LDL-choleste rol 158 mg/dL _(sophie c) high Refer ence range : <100 Aleksandar able range <100 mg/dL for prima ry preve ntion ; <70 mg/dL for patie nts with CHD or diabe tic patie nts with > or = 2 CHD risk facto rs. LDL-C is now calcu lated using the Mayte n-Hop kins pilou faby n, which is a valid ated novel mike leon than the Fried jorge a equat ion in the estim ation of LDL-C . Mayte bautista SS et al. BETTINA. 2013; 310(1 9): 2061- 2068 (http ://ed ucati on.Qu estDi chrystalos tics. com/f aq/FA Q164) Not Available [facility] [address] [place], [address], 09/13/2023 03:29:15 09/12/1909/13/2023 LIPID PANEL , STAND SINCERE chol/HDLC ratio 3.5 (calc ) <5.0 normal Not Available [address], [address], 09/13/2023 03:29:15 09/12/19 24 09/13/2023 LIPID PANEL , STAND SINCERE non HDL cholesterol 187 mg/dL _(sophie c) <130 high For patie nts with diabe malik plus 1 major ASCVD risk facto r, treat ing to a non-H DL-C goal of <100 mg/dL (LDL- C of <70 mg/dL ) is dinorah costa c optio n. Not Available [address], [address], 09/13/2023 03:29:15 09/12/1909/13/2023 TSH+F REE T4 TSH 13.91 mIU/L high Refer ence Range > or = 20 Years 0.40- 4.50 Pregn mario Range s First trime ster 0.26- 2.66 Secon d trime ster 0.55- 2.73 Third trime ster 0.43- 2.91 Not Available [address], [address], 09/13/2023 03:29:16 09/12/1909/13/2023 TSH+F REE T4 T4, free 0.4 NG/dL 0.8-1. 8 low Not Available [address], [address], 09/13/2023 03:29:16 09/12/1909/13/2023 COMPR EHENS DEEP METAB OLIC PANEL glucose 85 mg/dL 65-99 normal Fasti ng refer ence inter rafa Not Available [address], [address], 09/13/2023 03:29:17 09/12/19 24 09/13/2023 COMPR EHENS DEEP METAB OLIC PANEL urea nitrogen (BUN) 12 mg/dL 7-25 normal Not Available [address], [address], 09/13/2023 03:29:17 09/12/19 24 09/13/2023 COMPR EHENS DEEP METAB OLIC PANEL creatinine 0.90 mg/dL 0.50-1 .03 normal Not Available [address], [address], 09/13/2023 03:29:17 09/12/19 24 09/13/2023 COMPR EHENS DEEP METAB OLIC PANEL eGFR 76 mL/mi n/1.7 3m2 > or = 60 normal Not Available [address], [address], 09/13/2023 03:29:17 09/12/19 24 09/13/2023 COMPR EHENS DEEP METAB OLIC PANEL BUN/creatini ne ratio SEE NOTE: (calc ) 6-22 Not Repor charline: BUN and Creat inine are withi n refer ence range . Not Available [address], [address], 09/13/2023 03:29:17 09/12/19 24 09/13/2023 COMPR EHENS DEEP METAB OLIC PANEL sodium 137 mmol/ L 135-14 6 normal Not Available [address] [place], [address], 09/13/2023 03:29:17 09/12/19 24 09/13/2023 COMPR EHENS DEEP METAB OLIC PANEL potassium 4.0 mmol/ L 3.5-5. 3 normal Not Available [address], [address], 09/13/2023 03:29:17 09/12/19 24 09/13/2023 COMPR EHENS DEEP METAB OLIC PANEL chloride 103 mmol/ L 98-110 normal Not Available [address], [address], 09/13/2023 03:29:17 09/12/19 24 09/13/2023 COMPR EHENS DEEP METAB OLIC PANEL carbon dioxide 27 mmol/ L 20-32 normal Not Available [address], [address], 09/13/2023 03:29:17 09/12/19 24 09/13/2023 COMPR EHENS DEEP METAB OLIC PANEL calcium 8.9 mg/dL 8.6-10 .4 normal Not Available [address], [address], 09/13/2023 03:29:17 09/12/19 24 09/13/2023 COMPR EHENS DEEP METAB OLIC PANEL protein, total 7.2 g/dL 6.1-8. 1 normal Not Available [address], [address], 09/13/2023 03:29:17 09/12/19 24 09/13/2023 COMPR EHENS DEEP METAB OLIC PANEL albumin 4.4 g/dL 3.6-5. 1 normal Not Available [address], [address], 09/13/2023 03:29:17 09/12/19 24 09/13/2023 COMPR EHENS DEEP METAB OLIC PANEL globulin 2.8 g/dL_ (calc ) 1.9-3. 7 normal Not Available [address], [address], 09/13/2023 03:29:17 09/12/19 24 09/13/2023 COMPR EHENS DEEP METAB OLIC PANEL albumin/glob ulin ratio 1.6 (calc ) 1.0-2. 5 normal Not Available [address], [address], 09/13/2023 03:29:17 09/12/19 24 09/13/2023 COMPR EHENS DEEP METAB OLIC PANEL bilirubin, total 0.4 mg/dL 0.2-1. 2 normal Not Available [address], [address], 09/13/2023 03:29:17 09/12/19 24 09/13/2023 COMPR EHENS DEEP METAB OLIC PANEL alkaline phosphatase 66 U/L 37-153 normal Not Available [address], [address], 09/13/2023 03:29:17 09/12/19 24 09/13/2023 COMPR EHENS DEEP METAB OLIC PANEL AST 33 U/L 10-35 normal Not Available [address], [address], 09/13/2023 03:29:17 09/12/19 24 09/13/2023 COMPR EHENS DEEP METAB OLIC PANEL ALT 23 U/L 6-29 normal Not Available [address], [address], 09/13/2023 03:29:17 09/12/19 24 09/13/2023 CBC (INCL UDES DIFF/ PLT) white blood cell count 5.5 thous and/u L 3.8-10 .8 normal Not Available [address], [address], 09/13/2023 03:29:18 09/12/19 24 09/13/2023 CBC (INCL UDES DIFF/ PLT) red blood cell count 4.59 marian on/uL 3.80-5 .10 normal Not Available [address], [address], 09/13/2023 03:29:18 09/12/19 24 09/13/2023 CBC (INCL UDES DIFF/ PLT) hemoglobin 14.1 g/dL 11.7-1 5.5 normal Not Available [address], [address], 09/13/2023 03:29:18 09/12/19 24 09/13/2023 CBC (INCL UDES DIFF/ PLT) hematocrit 43.6 % 35.0-4 5.0 normal Not Available [address], [address], 09/13/2023 03:29:18 09/12/19 24 09/13/2023 CBC (INCL UDES DIFF/ PLT) MCV 95.0 fL 80.0-1 00.0 normal Not Available [address], [address], 09/13/2023 03:29:18 09/12/19 24 09/13/2023 CBC (INCL UDES DIFF/ PLT) MCH 30.7 pg 27.0-3 3.0 normal Not Available [address], [address], 09/13/2023 03:29:18 09/12/19 24 09/13/2023 CBC (INCL UDES DIFF/ PLT) MCHC 32.3 g/dL 32.0-3 6.0 normal Not Available [address], [address], 09/13/2023 03:29:18 09/12/19 24 09/13/2023 CBC (INCL UDES DIFF/ PLT) RDW 12.7 % 11.0-1 5.0 normal Not Available [address], [address], 09/13/2023 03:29:18 09/12/19 24 09/13/2023 CBC (INCL UDES DIFF/ PLT) platelet count 334 thous and/u L 140-40 0 normal Not Available [address], [address], 09/13/2023 03:29:18 09/12/19 24 09/13/2023 CBC (INCL UDES DIFF/ PLT) MPV 10.8 fL 7.5-12 .5 normal Not Available [address], [address], 09/13/2023 03:29:18 09/12/19 24 09/13/2023 CBC (INCL UDES DIFF/ PLT) absolute neutrophils 2673 cells /uL 1500-7 800 normal Not Available [address], [address], 09/13/2023 03:29:18 09/12/19 24 09/13/2023 CBC (INCL UDES DIFF/ PLT) absolute lymphocytes 2558 cells /uL 850-39 00 normal Not Available [address], [address], 09/13/2023 03:29:18 09/12/19 24 09/13/2023 CBC (INCL UDES DIFF/ PLT) absolute monocytes 187 cells /uL 200-95 0 low Not Available [address], [address], 09/13/2023 03:29:18 09/12/19 24 09/13/2023 CBC (INCL UDES DIFF/ PLT) absolute eosinophils 61 cells /uL 15-500 normal Not Available [address], [address], 09/13/2023 03:29:18 09/12/19 24 09/13/2023 CBC (INCL UDES DIFF/ PLT) absolute basophils 22 cells /uL 0-200 normal Not Available [facility] [address], [address], 09/13/2023 03:29:18 09/12/19 24 09/13/2023 CBC (INCL UDES DIFF/ PLT) neutrophils 48.6 % normal Not Available [address], [address], 09/13/2023 03:29:18 09/12/19 24 09/13/2023 CBC (INCL UDES DIFF/ PLT) lymphocytes 46.5 % normal Not Available [address], [address], 09/13/2023 03:29:18 09/12/19 24 09/13/2023 CBC (INCL UDES DIFF/ PLT) monocytes 3.4 % normal Not Available [address], [address], 09/13/2023 03:29:18 09/12/19 24 09/13/2023 CBC (INCL UDES DIFF/ PLT) eosinophils 1.1 % normal Not Available [address], [address], 09/13/2023 03:29:18 09/12/19 24 09/13/2023 CBC (INCL UDES DIFF/ PLT) basophils 0.4 % normal Not Available [address], [address], 09/13/2023 03:29:18 09/12/19 24 09/13/2023 T3, FREE T3, free 1.5 pg/mL 2.3-4. 2 low Not Available [address], [address], 09/13/2023 03:29:18 09/12/19 24 09/13/2023 VITAM IN D,25- OH,TO PAWEL,I A vitamin D,25-oh,tota l,ia 37 NG/mL 30-100 normal Vitam in D Statu s 25-OH Vitam in D: Defic iency : <20 ng/mL Insuf ficie ncy: 20 - 29 ng/mL Optim al: > or = 30 ng/mL For 25-OH Vitam in D testi ng on patie nts on D2-jennings pplem entat ion and patie nts for whom quant itati on of D2 and D3 fract ions is requi red, the [facility](TM ) 25-OH VIT D, (D2,D 3), LC/MS /MS is recom adriana d: order code 01503 (get ents >2yrs ). See Note 1 Note 1 For addit ional infor artie adams refer to http: //[facility] mandy Velasquez stDia gnost ics.c om/fa q/FAQ 199 (This link is being provi ded for infor dominga hayes/ israel womack purpo ses only. ) Not Available [facility] [address] [place], [address], 09/13/2023 03:29:19 12/10/19 24 12/10/2023 Thyro tropi n [Unit s/vol ume] in Serum or Plasm a by Detec tion limit <= 0.005 mIU/L thyrotropin [units/volum e] in serum or plasma by detection limit <= 0.005 mIU/L 0.02 text: see_co mment low [Auto mated messa ge] The syste m which gener ated this resul t trans mitte d refer ence range : 0.27 - 4.20 uIU/m L. The refer ence range was not used to inter pret this resul t as tiesha l/abn ormal . Not Available Not Available 09/04/2024 16:09:13 12/10/19 24 12/10/2023 Thyro tropi n [Unit s/vol ume] in Serum or Plasm a by Detec tion limit <= 0.005 mIU/L interpretati on and review of laboratory results Abnorm al Not Available Not Available 16:09:13 12/10/19 24 12/10/2023 Thyro xine (T4) free [Mass /volu me] in Serum or Plasm a thyroxine (T4) free [mass/volume ] in serum or plasma 1.96 NG/dL low: 0.8NG/ dLhigh : 1.8NG/ dL high Not Available Not Available 09/04/2024 16:09:13 12/10/19 24 12/10/2023 Thyro xine (T4) free [Mass /volu me] in Serum or Plasm a interpretati on and review of laboratory results Abnorm al Not Available Not Available 16:09:13 12/10/19 24 12/10/2023 Renal funct ion 1999 panel - Serum or Plasm a calcium [mass/volume ] in serum or plasma 9.7 mg/dL low: 8.6mg/ dLhigh : 10.3mg /dL Not Available Not Available 09/04/2024 16:09:13 12/10/19 24 12/10/2023 Renal funct ion 1999 panel - Serum or Plasm a sodium [moles/volum e] in serum or plasma 143 mmol/ L low: 135mmo l/Lhig h: 145mmo l/L Not Available Not Available 09/04/2024 16:09:13 12/10/19 24 12/10/2023 Renal funct ion 1999 panel - Serum or Plasm a potassium [moles/volum e] in serum or plasma 4 mmol/ L low: 3.3mmo l/Lhig h: 5.1mmo l/L Not Available Not Available 09/04/2024 16:09:13 12/10/19 24 12/10/2023 Renal funct ion 1999 panel - Serum or Plasm a chloride [moles/volum e] in serum or plasma 105 mmol/ L low: 95mmol /Lhigh : 107mmo l/L Not Available Not Available 09/04/2024 16:09:13 12/10/19 24 12/10/2023 Renal funct ion 1999 panel - Serum or Plasm a bicarbonate [moles/volum e] in serum or plasma 26 mmol/ L low: 21mmol /Lhigh : 29mmol /L Not Available Not Available 09/04/2024 16:09:13 12/10/19 24 12/10/2023 Renal funct ion 1999 panel - Serum or Plasm a creatinine [mass/volume ] in serum or plasma 0.79 mg/dL low: 0.6mg/ dLhigh : 1.1mg/ dL Not Available Not Available 09/04/2024 16:09:13 12/10/19 24 12/10/2023 Renal funct ion 1999 panel - Serum or Plasm a glucose [mass/volume ] in serum or plasma 90 mg/dL low: 64mg/d Lhigh: 99mg/d L Not Available Not Available 09/04/2024 16:09:13 12/10/19 24 12/10/2023 Renal funct ion 1999 panel - Serum or Plasm a urea nitrogen [mass/volume ] in serum or plasma 13 mg/dL low: 7mg/dL high: 23mg/d L Not Available Not Available 09/04/2024 16:09:13 12/10/19 24 12/10/2023 Renal funct ion 1999 panel - Serum or Plasm a albumin [mass/volume ] in serum or plasma by bromocresol green (bcg) dye binding method 4.4 g/dL low: 3.5g/d Lhigh: 5.2g/d L Not Available Not Available 09/04/2024 16:09:13 12/10/19 24 12/10/2023 Renal funct ion 1999 panel - Serum or Plasm a phosphate [mass/volume ] in serum or plasma 3 mg/dL low: 2.3mg/ dLhigh : 4.5mg/ dL Not Available Not Available 09/04/2024 16:09:13 12/10/19 24 12/10/2023 Renal funct ion 1999 panel - Serum or Plasm a glomerular filtration rate [volume rate/area] in serum, plasma or blood by creatinine-b ased formula (MDRD)/1.73 sq M among non black population 88.8 text: see_co mment [Auto mated messa ge] The syste m which gener ated this resul t trans mitte d refer ence range : >60.0 mL/mi n/1.7 3 m2. The refer ence range was not used to inter pret this resul t as tiesha l/abn ormal . Not Available Not Available 09/04/2024 16:09:13 04/12/19 25 04/13/2024 LIPID PANEL , STAND SINCERE cholesterol, total 197 mg/dL <200 normal Not Available [employer] [facility] [address] [place], [address], 04/13/2024 08:58:28 04/12/1904/13/2024 LIPID PANEL , STAND SINCERE HDL cholesterol 63 mg/dL > or = 50 normal Not Available [facility] [address] [place] [address], [address], 04/13/2024 08:58:28 04/12/1904/13/2024 LIPID PANEL , STAND SINCERE triglyceride s 99 mg/dL <150 normal Not Available [address], [address], 04/13/2024 08:58:28 04/12/1904/13/2024 LIPID PANEL , STAND SINCERE LDL-choleste rol 113 mg/dL _(spohie c) high Refer ence range : <100 Aleksandar able range <100 mg/dL for prima ry preve ntion ; <70 mg/dL for patie nts with CHD or diabe tic patie nts with > or = 2 CHD risk facto rs. LDL-C is now calcu lated using the Mayte n-Hop kins calcu latsylvia n, which is a valid ated novel mike cardoso accur acy than the Fried jorge a equat ion in the estim ation of LDL-C . Mayte bautista SS et al. BETTINA. 2013; 310(1 9): 2061- 2068 (http ://ed ucati on.[employer]. com/f aq/FA Q164) Not Available [address], [address], 04/13/2024 08:58:28 04/12/1904/13/2024 LIPID PANEL , STAND SINCERE chol/HDLC ratio 3.1 (calc ) <5.0 normal Not Available [facility] [address] [place] [address], [address], 04/13/2024 08:58:28 04/12/1904/13/2024 LIPID PANEL , STAND SINCERE non HDL cholesterol 134 mg/dL _(sophie c) <130 high For patie nts with diabe malik plus 1 major ASCVD risk facto r, treat ing to a non-H DL-C goal of <100 mg/dL (LDL- C of <70 mg/dL ) is consi dered a thera peuti c optio n. Not Available [address] [address] [place], [address], 04/13/2024 08:58:28 04/12/1904/13/2024 PROTH ROMBI N W/INR + PARTI AL THROM BOPLA STIN TIMES partial thromboplast in time, activated 30 sec 23-32 normal This test has not been valid ated for monit oring unfra ction ated hepar in thera py. For testi ng that is valid ated for this type of thera py, artie e refer to the Hepar in Anti- Xa assay (test code 77585 ). For addit ional infor artie adams e refer to http: //[facility] mandy Velasquez stDia gnost ics.c om/fa q/FAQ 159 (This link is being provi ded for infor dominga nal/e ducat ional purpo ses only. ) Not Available [address] [address] [place], [address], 04/13/2024 08:58:29 04/12/1904/13/2024 PROTH ROMBI N W/INR + PARTI AL THROM BOPLA STIN TIMES INR 1.0 normal Refer ence Range 0.9-1 .1 Moder ate-i ntens ity Warfa rin Thera py 2.0-3 .0 Highe r-int ensit y Warfa rin Thera py 3.0-4 .0 Not Available [address] [address] [place], [address], 04/13/2024 08:58:29 04/12/1904/13/2024 PROTH ROMBI N W/INR + PARTI AL THROM BOPLA STIN TIMES PT 11.0 sec 9.0-11 .5 normal Not Available [facility] [address], [address], 04/13/2024 08:58:29 04/12/1904/13/2024 TSH+F REE T4 TSH 0.04 mIU/L low Refer ence Range > or = 20 Years 0.40- 4.50 Pregn mario Range s First trime ster 0.26- 2.66 Secon d trime ster 0.55- 2.73 Third trime ster 0.43- 2.91 Not Available [address], [address], 04/13/2024 08:58:31 04/12/1904/13/2024 TSH+F REE T4 T4, free 1.6 NG/dL 0.8-1. 8 normal Not Available [address], [address], 04/13/2024 08:58:31 04/12/1904/13/2024 COMPR EHENS DEEP METAB OLIC PANEL glucose 111 mg/dL 65-99 high Fasti ng refer ence inter rafa For someo ne witho ut known diabe malik, a gluco se value betwe en 100 and 125 mg/dL is consi stent with predi abete s and shoul d be confi rmed with a follo w-up test. Not Available [address], [address], 04/13/2024 08:58:31 04/12/1904/13/2024 COMPR EHENS DEEP METAB OLIC PANEL urea nitrogen (BUN) 16 mg/dL 7-25 normal Not Available [facility] [address], [address], 04/13/2024 08:58:31 04/12/1904/13/2024 COMPR EHENS DEEP METAB OLIC PANEL creatinine 0.89 mg/dL 0.50-1 .03 normal Not Available [address], [address], 04/13/2024 08:58:31 04/12/1904/13/2024 COMPR EHENS DEEP METAB OLIC PANEL eGFR 77 mL/mi n/1.7 3m2 > or = 60 normal Not Available [address], [address], 04/13/2024 08:58:31 04/12/1904/13/2024 COMPR EHENS DEEP METAB OLIC PANEL BUN/creatini ne ratio SEE NOTE: (calc ) 6-22 Not Repor charline: BUN and Creat inine are withi n refer ence range . Not Available [address], [place], [address], 04/13/2024 08:58:31 04/12/1904/13/2024 COMPR EHENS DEEP METAB OLIC PANEL sodium 142 mmol/ L 135-14 6 normal Not Available [address], [place], [address], 04/13/2024 08:58:31 04/12/1904/13/2024 COMPR EHENS DEEP METAB OLIC PANEL potassium 4.4 mmol/ L 3.5-5. 3 normal Not Available [address], [place], [address], 04/13/2024 08:58:31 04/12/1904/13/2024 COMPR EHENS DEEP METAB OLIC PANEL chloride 104 mmol/ L 98-110 normal Not Available [address], [address], 04/13/2024 08:58:31 04/12/1904/13/2024 COMPR EHENS DEEP METAB OLIC PANEL carbon dioxide 29 mmol/ L 20-32 normal Not Available [address], [address], 04/13/2024 08:58:31 04/12/1904/13/2024 COMPR EHENS DEEP METAB OLIC PANEL calcium 10.2 mg/dL 8.6-10 .4 normal Not Available [address], [address], 04/13/2024 08:58:31 04/12/1904/13/2024 COMPR EHENS DEEP METAB OLIC PANEL protein, total 7.7 g/dL 6.1-8. 1 normal Not Available [address], [address], 04/13/2024 08:58:31 04/12/1904/13/2024 COMPR EHENS DEEP METAB OLIC PANEL albumin 4.5 g/dL 3.6-5. 1 normal Not Available [address], [address], 04/13/2024 08:58:31 04/12/1904/13/2024 COMPR EHENS DEEP METAB OLIC PANEL globulin 3.2 g/dL_ (calc ) 1.9-3. 7 normal Not Available [address], [address], 04/13/2024 08:58:31 04/12/1904/13/2024 COMPR EHENS DEEP METAB OLIC PANEL albumin/glob ulin ratio 1.4 (calc ) 1.0-2. 5 normal Not Available [address], [address], 04/13/2024 08:58:31 04/12/1904/13/2024 COMPR EHENS DEEP METAB OLIC PANEL bilirubin, total 0.6 mg/dL 0.2-1. 2 normal Not Available [address], [address], 04/13/2024 08:58:31 04/12/1904/13/2024 COMPR EHENS DEEP METAB OLIC PANEL alkaline phosphatase 62 U/L 37-153 normal Not Available [facility] [employer] [address], [address], 04/13/2024 08:58:31 04/12/1904/13/2024 COMPR EHENS DEEP METAB OLIC PANEL AST 14 U/L 10-35 normal Not Available [address], [address], 04/13/2024 08:58:31 04/12/1904/13/2024 COMPR EHENS DEEP METAB OLIC PANEL ALT 10 U/L 6-29 normal Not Available [address], [address], 04/13/2024 08:58:31 04/12/1904/13/2024 CBC (INCL UDES DIFF/ PLT) white blood cell count 5.2 thous and/u L 3.8-10 .8 normal Not Available [address], [address], 04/13/2024 08:58:32 04/12/1904/13/2024 CBC (INCL UDES DIFF/ PLT) red blood cell count 4.48 marian on/uL 3.80-5 .10 normal Not Available [address], [address], 04/13/2024 08:58:32 04/12/1904/13/2024 CBC (INCL UDES DIFF/ PLT) hemoglobin 13.7 g/dL 11.7-1 5.5 normal Not Available [address], [address], 04/13/2024 08:58:32 04/12/1904/13/2024 CBC (INCL UDES DIFF/ PLT) hematocrit 42.6 % 35.0-4 5.0 normal Not Available [address], [address], 04/13/2024 08:58:32 04/12/1904/13/2024 CBC (INCL UDES DIFF/ PLT) MCV 95.1 fL 80.0-1 00.0 normal Not Available [address], [address], 04/13/2024 08:58:32 04/12/1904/13/2024 CBC (INCL UDES DIFF/ PLT) MCH 30.6 pg 27.0-3 3.0 normal Not Available [address], [address], 04/13/2024 08:58:32 04/12/1904/13/2024 CBC (INCL UDES DIFF/ PLT) MCHC 32.2 g/dL 32.0-3 6.0 normal For adult s, a sligh t decre ase in the calcu lated MCHC value (in the range of 30 to 32 g/dL) is most likel y not clini cheryl signi raine t; earle er, it shoul d be inter prete d with cauti on in corre lat n with other red cell jerrell eters and the patie nt's clini sophie condi tion. Not Available [address], [address], 04/13/2024 08:58:32 04/12/1904/13/2024 CBC (INCL UDES DIFF/ PLT) RDW 12.5 % 11.0-1 5.0 normal Not Available [address], [address], 04/13/2024 08:58:32 04/12/1904/13/2024 CBC (INCL UDES DIFF/ PLT) platelet count 312 thous and/u L 140-40 0 normal Not Available [facility] [address], [address], 04/13/2024 08:58:32 04/12/1904/13/2024 CBC (INCL UDES DIFF/ PLT) MPV 10.6 fL 7.5-12 .5 normal Not Available [address], [address], 04/13/2024 08:58:32 04/12/1904/13/2024 CBC (INCL UDES DIFF/ PLT) absolute neutrophils 2454 cells /uL 1500-7 800 normal Not Available [address], [address], 04/13/2024 08:58:32 04/12/1904/13/2024 CBC (INCL UDES DIFF/ PLT) absolute lymphocytes 2423 cells /uL 850-39 00 normal Not Available [address], [address], 04/13/2024 08:58:32 04/12/1904/13/2024 CBC (INCL UDES DIFF/ PLT) absolute monocytes 281 cells /uL 200-95 0 normal Not Available [address], [address], 04/13/2024 08:58:32 04/12/1904/13/2024 CBC (INCL UDES DIFF/ PLT) absolute eosinophils 21 cells /uL 15-500 normal Not Available [address], [address], 04/13/2024 08:58:32 04/12/1904/13/2024 CBC (INCL UDES DIFF/ PLT) absolute basophils 21 cells /uL 0-200 normal Not Available [address], [address], 04/13/2024 08:58:32 04/12/1904/13/2024 CBC (INCL UDES DIFF/ PLT) neutrophils 47.2 % normal Not Available [address], [address], 04/13/2024 08:58:32 04/12/1904/13/2024 CBC (INCL UDES DIFF/ PLT) lymphocytes 46.6 % normal Not Available [address], [address], 04/13/2024 08:58:32 04/12/1904/13/2024 CBC (INCL UDES DIFF/ PLT) monocytes 5.4 % normal Not Available [address], [address], 04/13/2024 08:58:32 04/12/1904/13/2024 CBC (INCL UDES DIFF/ PLT) eosinophils 0.4 % normal Not Available [address], [address], 04/13/2024 08:58:32 04/12/1904/13/2024 CBC (INCL UDES DIFF/ PLT) basophils 0.4 % normal Not Available [address], [address], 04/13/2024 08:58:32 04/12/1904/13/2024 T3, FREE T3, free 3.3 pg/mL 2.3-4. 2 normal Not Available [address], [address], 04/13/2024 08:58:33 04/12/1904/13/2024 VITAM IN D,25- OH,TO PAWEL,I A vitamin D,25-oh,tota l,ia 25 NG/mL 30-100 low Vitam in D Statu s 25-OH Vitam in D: Defic iency : <20 ng/mL Insuf ficie ncy: 20 - 29 ng/mL Optim al: > or = 30 ng/mL For 25-OH Vitam in D testi ng on patie nts on D2-jennings pplem entat ion and patie nts for whom quant itati on of D2 and D3 fract ions is requi red, the [facility] eD(TM ) 25-OH VIT D, (D2,D 3), LC/MS /MS is recom adriana d: order code 15809 (get ents >2yrs ). See Note 1 Note 1 For addit ional infor artie adams refer to http: //[facility] mandy Velasquez stDia gnost ics.c om/fa q/FAQ 199 (This link is being provi ded for infor dominga hayes/ [place] wom[employer] purpo ses only. ) Not Available [facility] Private [employer] [id number] [place], [address], 04/13/2024 08:58:34 05/30/19 24 05/31/2023 elect rocar diogr am No observ ation record ed. [address], [facility] [address], [place], [address], 08/07/2023 13:00:50 05/30/19 24 05/30/2023 elect rocar diogr am No observ ation record ed. [address], [facility] [address], [place], [address], 08/07/2023 13:00:50 06/04/[address] [facility] [address] [facility] [address] [place] [address] Orderi ng Provid er: FRANK MCKNIGHT Date: 024 12:04 PM Exam: CTA CHEST Compar jose: No compar isons. Techni que: Thin sectio n images were obtain ed of the chest with a CTA pulmon ally emboli sm protoc ol and with IV contra st. 100 ml of Isovue -370 thru an existi ng IV site. Patterson l and sagitt al recons tructi ons. Patterson l 3-D MIP recons tructi ons as well as 3-D volume rotati onal vascul ar recons tructi ons perfor med [facility]. A dose loweri ng techni que was used for this proced ure, which may includ e, but is not limite d to, dose reduct ion techni que, automa charline exposu re contro l, the use of iterat deep recons tructi on, and ALARA (As Low As Reason ably Achiev able)/ Image gently techni ques. Histor y: Diffic ulty breath ing. Chest heavin ess. Findin gs: CHEST: The heart size is somewh at enlarg ed. There is no perica rdial effusi on. The thorac ic aorta is patent and normal in calibe r. The pulmon ally arteri es are patent withou t eviden ce of pulmon ally emboli sm. There is no lympha denopa thy in the centra l chest. The trache al and main bronch ial airway s are patent . There is a 3 mm nodule in the head of marketing adometry ior right apical lung as seen on series 5 image 22. There is mild depend ent atelec tasis, but no consol idatio ns nor pleura l effusi ons. There is mild air trappi ng. There is linear atelec tasis in the lingul a. Visual ized upper abdome n: The visual ized portio ns of the liver, gallbl adder, spleen , pancre as, adrena l glands and upper kidney s are within normal limits . The visual ized upper abdomi nal aorta appear s normal . Osseou s struct ures: There is mild spondy losis in the thorac ic spine. Impres seferino: 1. No pulmon ally emboli sm. No gross acute cardio pulmon ally diseas e proces s. 2. Mild cardio megaly . 3. Linear atelec tasis in the lingul a. 4. 3 mm nodule in the head of marketing adometry ior right apical lung. No follow -up is necess ally in a low-ri sk patien t. Option al CT chest is advise d at one year in a high risk patien t accord ing to the Fleisc hner criter ia. Ordere d By: FRANK Albrecht onical ly Signed By: Calixto bautista Jr, MD on 12:55 PM Interp reted By: Calixto bautista Jr, MD, 12:[address], [place], [address], 08/07/2023 13:00:50 06/05/19 24 06/05/2023 US, echoc ardio gram No observ ation record ed. [address], [facility] [address], [place], [address], 08/07/2023 13:00:49 06/07/19 24 06/06/2023 XR, chest , 2 view No observ ation record ed. [address], [place], [address], 08/07/2023 13:00:49 08/01/19 24 06/27/2023 US, echoc ardio gram No observ ation record ed. [address], [facility] [address], [place], [address], 08/07/2023 13:00:49 11/01/19 24 XR, knee No observ ation record ed. [facility] [address] [facility] [address], [place], [address], 11/01/2023 12:49:59 03/21/19 25 03/20/2024 MAMMO , scree blake, digit al, bilat eral No observ ation record ed. [facility] [address] [place], [address], 03/28/2024 16:08:29 Result Notes None recorded. Problems Name Problem SNOMED Code Status Onset Date Resolution Date Notes Provider Name and Address Organization Details Recorded Time Seasonal allergic rhinitis 516262644 Active 2022 Frank Mcknight MD [address], [place], [address], [place] [facility] 15:34:49 Migraine 70399642 Active 2022 Frank Mcknight MD [address], [place], [address], [facility] 3 15:34:57 Polyp of colon 27095042 Active 2022 Frank Mcknight MD [address], [place], [address], [facility] 15:36:04 Hemorrhoids 27674103 Active 2022 Frank Mcknight MD [address], [place], [address], [facility] 15:36:13 Goiter 3450423 Active 2022 Frank Mcknight MD [address], [place], [address], [facility] 15:37:48 Vitamin D deficiency 23870095 Active 2022 Frank Mcknight MD [address], [place], [address], [facility] 15:39:03 Fatigue 51693777 Active 2022 Frank Mcknight MD [address], [place], [address], [facility] 15:39:14 Hyperlipide luba 28741825 Active 2022 Frank Mcknight MD [address], [place], [address], [facility] 15:40:36 Amenorrhea 50110659 Active 2022 Farnk Mcknight MD [address], [place], [address], [facility] 15:41:55 Pain of left knee joint 1220133614718 07 Active 2022 Frank Mcknight MD [address], [place], [address], [facility] 16:03:16 Lumbar radiculopat hy 361026706 Active 2022 Frank Mcknight MD [address], [place], [address], [facility] 3 16:04:04 Plain X-ray of lumbar spine abnormal 649252109 Active 2022 Maricel Polanco MD [address], [place], [address], [facility] 3 23:40:37 Thyroid nodule 099111765 Active 2022 Frank Mcknight MD [address], [place], [address], [facility] 3 07:27:44 Weight gain 7392807 Active 2022 Frank Mcknight MD [address], [place], [address], [facility] 3 08:15:18 Problem Notes None recorded. Procedures Surgical History Date Name Laterality Status Provider Name and Address Organization Details Recorded Time 03/21/19 25 Date of Last Mammogram completed [facility] 09/15/2024 12:46:49 05/01/19 24 thyroidectomy completed Marleni Rasmussen [facility] 05/09/2023 10:36:11 10/18/19 22 Date of Last Pap Smear completed [facility] 08/24/2022 14:38:59 09/26/19 20 Colonoscopy completed Frank Mcknight MD [address], [place], [address], [facility] 10/24/2022 20:27:23 Imaging Results None recorded. Procedure Notes None recorded. Medical Equipment None Reported. Allergies No known drug allergies Medications Name Sig Start Date Stop Date Status Note LastModified by Organization Details LastModified Time levothyro xine 137 mcg tablet Take 1 tablet every day by oral route in the morning. 2024 active -- on hold as Endo is starting pt on GARCIA Tx. Not Available Not Available Not Available peg-elect rolyte solution 420 gram oral solution 05/09 completed Not Available Not Available Not Available levothyro xine 125 mcg tablet TAKE 1 TABLET BY MOUTH Q Sunday, Sun and 03/17 completed managed by endo Not Available Not Available Not Available promethaz ine 25 mg tablet TAKE 1/2 (ONE-IVETH F) TABLET BY MOUTH EVERY 6 HOURS NEEDED FOR NAUSEA 08/06 completed Not Available Not Available Not Available ergocalci ferol (vitamin D2) 1,250 mcg (50,000 unit) capsule TAKE 1 CAPSULE BY MOUTH ONCE A WEEK 10/31 completed Not Available Not Available Not Available amoxicill in 500 mg-potass ium clavulana te 125 mg tablet TAKE 1 TABLET BY MOUTH EVERY [address] DRAIN IN PLACE. DISCONTI NUE 24 HOURS AFTER DRAIN REMOVED 08/06 completed Not Available Not Available Not Available peg 3350-elec trolytes 236 gram-22.7 4 gram-6.74 gram-5.86 gram solution USE DIRECTED BY OFFICE 08/06 completed Not Available Not Available Not Available cholecalc iferol (vitamin D3) 50 mcg (2,000 unit) capsule Take 1 capsule every day by oral route. 2024 active Not Available Not Available Not Avai lable Vitals Date Recorded Body height Heart rate Respiratory rate Body temperature Body mass index (BMI) Body weight Systolic And Diastolic Provider Name and Address Organization Details Last Updated DateTime 4 160.02 cm 66 /min 16 /min 97.6 [degF] 32.8 kg/m2 03426.5 9 g 94/59 mm[Hg] Marleni Rasmussen [facility] 4 13:51:14 Date Recorded Body height Heart rate Respiratory rate Body temperature Body mass index (BMI) Body weight Systolic And Diastolic Provider Name and Address Organization Details Last Updated DateTime 4 160.02 cm 73 /min 16 /min 97.5 [degF] 32.4 kg/m2 83560.4 g 118/77 mm[Hg] Catia Parish [facility] 4 12:27:18 Date Recorded Body height Body mass index (BMI) Body weight Heart rate Respiratory rate Body temperature Systolic And Diastolic Provider Name and Address Organization Details Last Updated DateTime 5 160.02 cm 34.4 kg/m2 84992.9 2 g 64 /min 16 /min 97.5 [degF] 122/82 mm[Hg] Catia Parish [facility] 5 12:46:11 Date Recorded Body height Heart rate Respiratory rate Body temperature Body weight Body mass index (BMI) Systolic And Diastolic Provider Name and Address Organization Details Last Updated DateTime 4 160.02 cm 73 /min 16 /min 96.7 [degF] 15460.5 9 g 32.8 kg/m2 112/75 mm[Hg] Catia Parish [facility] 4 12:29:15 Date Recorded Body height Heart rate Respiratory rate Body temperature Body mass index (BMI) Body weight Systolic And Diastolic Provider Name and Address Organization Details Last Updated DateTime 4 160.02 cm 77 /min 16 /min 97.1 [degF] 33.1 kg/m2 32670.7 7 g 126/85 mm[Hg] Catia Parish [facility] 4 15:24:27 Social History Question Answer Notes LastModified by Organizat ion Details LastModified Time Tobacco Smoking Status Never Smoker Catia Parish [facility] 08/24/2022 14:37:21 Do You Have An Advance Directive? No [email or web address] Information not available 04/23/2023 Do You Wear A Helmet When Biking? No [email or web address] Information not available 04/23/2023 Are You Blind Or Do You Have Difficulty Seeing? No [email or web address] Information not available 04/23/2023 Is Blood Transfusion Acceptable In An Emergency? Yes [email or web address] Information not available 04/23/2023 What Is Your Level Of Caffeine Consumption? Heavy 8 Cups/cans A Day [email or web address] Information not available 04/23/2023 What Type Of Rope Cutter Do You Use? None [email or web address] Information not available 04/23/2023 In The 14 Days Before Symptom Onset, Have You Had Close Contact With A Laboratory-confir med COVID-19 While That Case Was Ill? No [email or web address] Information not available 04/23/2023 In The 14 Days Before Symptom Onset, Have You Had Close Contact With A Person Who Is Under Investigation For COVID-19 While That Person Was Ill? No [email or web address] Information not available 04/23/2023 Have You Been To An Area Known To Be High Risk For COVID-19? No [email or web address] Information not available 04/23/2023 Are You Deaf Or Do You Have Serious Difficulty Hearing? No [email or web address] Information not available 04/23/2023 What Type Of Diet Are You Following? REGULAR [email or web address] Information not available 04/23/2023 Have You Processed Blood Or Body Fluids From An Ebola Virus Disease Patient Without Appropriate PPE? No [email or web address] Information not available 04/23/2023 Do You Reside In Or Have You Traveled To An Area Where Ebola Virus Transmission Is Active? No [email or web address] Information not available 04/23/2023 What Is The Highest Grade Or Level Of School You Have Completed Or The Highest Degree You Have Received? [id number] [email or web address] Information not available 04/23/2023 Have There Been Any Changes To Your Family Or Social Situation? No [email or web address] Information no t available 04/23/2023 What Is The Fluoride Status Of Your Home? Unknown Information not available 04/23/2023 Are There Any Guns Present In Your Home? No [email or web address] Information not available 04/23/2023 Do You Use Insect Repellent Routinely? No [email or web address] Information not available 04/23/2023 What Was The Date Of Your Most Recent Tobacco Screening? 09/15/2024 Information not available 09/15/2024 How Many Children Do You Have? 4 [email or web address] Information not available 04/23/2023 Are There Any Occupational Health Risks Where You Work? No Information not available 08/24/2022 Do You Have Any Pets? No [email or web address] Information not available 04/23/2023 Do You Use Protection During Sex? No Information not available 08/24/2022 What Is Your Relationship Status? [email or web address] Information not available 04/23/2023 Do You Use Your Seat Belt Or Car Seat Routinely? Yes [email or web address] Information not available 04/23/2023 Are You Sexually Active? Yes Information not available 08/24/2022 Do You Have Smoke And Carbon Monoxide Detectors In Your Home? Yes [email or web address] Information not available 04/23/2023 Are You Passively Exposed To Smoke? No [email or web address] Information no t available 04/23/2023 What Types Of Sporting Activities Do You Participate In? No [email or web address] Information not available 04/23/2023 Do You Use Sunscreen Routinely? No [email or web address] Information not available 04/23/2023 Do You Have Difficulty Walking Or Climbing Stairs? Yes Left Knee Is Bother Her For 2 Weeks Now [email or web address] Information not available 04/23/2023 Sex: Unknown Functional Status Question Answer Note LastModified by Organization Details LastModified Time Do you use any illicit or recreational drugs? No [email or web address] Information not available 04/23/2023 Do you or have you ever used any other forms of tobacco or nicotine? No [email or web address] Information not available 04/23/2023 What is your level of alcohol consumption? None Information not available 08/24/2022 Are you currently employed? Yes [employer] [facility] [facility] [email or web address] Information not available 04/23/2023 Do you have transportation difficulties? No Information not available 04/23/2023 Do you have difficulty doing errands alone? No [email or web address] Information not available 04/23/2023 Are you able to care for yourself? 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 No [email or web address] Information not available 04/23/2023 What is your exercise level? None [email or web address] Information not available 04/23/2023 Mental Status Question Answer Note LastModified by Organizat ion Details LastModified Time Do you feel stressed (tense, restless, nervous, or anxious, or unable to sleep at night)? [id number] [email or web address] Information not available 04/23/2023 Do you have difficulty concentrating, remembering or making decisions? No [email or web address] Information no t available 04/23/2023 Family History Relationship Description Onset Age of this Age Resolved Age Notes LastModified by Organization Details LastModified Time Paternal Grandmother Heart disease [email or web address] Not available 2022 14:33:28 Father Kidney disease [email or web address] Not available 04/23 18:01:28 Father Heart disease [email or web address] Not available 2022 14:34:38 Father Congestive heart failure [email or web address] Not available 04/23 18:01:28 Mother Diabetes mellitus [email or web address] Not available 2022 14:34:20 Maternal Uncle Diabetes mellitus Not available 2022 15:28:49 Maternal Uncle Carcinoma of prostate -- dx'd at around 66 y/o [email or web address] Not available 04/23/2023 18:01:28 Maternal Uncle Multiple myeloma -- dx'd at 66 y/o [email or web address] Not available 04/23/2023 18:01:28 Medical History Condition Response Headaches Y Gynecological History Statement/Question Response Date of Last Pap Smear 10/17/2021 Date of Last Mammogram 03/21/2024 Obstetrics History GPAL:G 7 P 4 3 0 4 Type Value Full Term 4 Premature 3 Living 4 Total 7 Past Encounters Encounter ID Performer Location Encounter Start Date Encounter Closed Date Diagnosis/Indication Diagnosis SNOMED-CT Code Diagnosis ICD10 Code Diagnosis Note [id number] Frank Mcknight MD [employer], [facility] [address] [place] [address] 08/24/2022 13:57:20 08/24/2022 16:07:46 Seasonal allergic rhinitis 418989452 J30.2 Migraine 25582275 G43.90 9 (dx'd when she was in her 20s) -- mainly around her cycles Polyp of colon 65697706 K63.5 -- will need to get colonosc & path report from Gastroentr ologist Dr Kuldeep Glynn Hemorrhoids 23733300 K64 .9 Goiter 6370356 E04.9 (RT>>LT) Vitamin D deficiency 347 79382 E55.9 Fatigue 98824374 R53.83 (improved w/ Vit D) Hyperlipidemia 23704701 E78.5 Amenorrhea 72558019 N91. 2 Body mass index 30+ - obesity 510928967 Z68.39 -- BMI of 32.9 (ideal is between 20-25)-- will advise weight loss Hepatitis C screening 41 2475208 Z11.59 HIV screening 108120063 Z11.4 Active or passive immunization 049074231 Z23 Screening for malignant neoplasm of colon 859512735 Z12.11 -- had colonoscop y with Gastroente rologist Dr Kuldeep Glynn around 2018 Screening for malignant neoplasm of breast 417537180 Z12.31 Screening for malignant neoplasm of cervix 895022172 Z12.4 Screening for osteoporosis 179592093 Z13.820 Pain of le ft knee joint 5112537823 99691 M25.562 Lumbar radiculopathy 128 020784 M54.16 -- started when she was taking care of her biological father [id number] Frank Mcknight MD [employer], [employer] [address] [place] [address] 10/09/2022 17:46:44 10/09/2022 19:56:17 Adult health examination 393714831 Z00.00 Vitamin D deficiency 347 39038 E55.9 Vit D deficiency has been associated w/ increase risks for stroke, cancer, heart attack, dementia, poor immunity, and increased bone loss (risk for easy bone fracture). -- start over-the-c ounter Vit D3 2,000 units 1 gel capsule daily & recheck Vitamin D level in 3 months. Screening for osteoporosis 297361452 Z13.820 Thyroid nodule 842708416 E04.1 Body mass index 30+ - obesity 841344563 Z68.34 -- advised weight loss; pt gained 10 # since her last visit-- BMI of 34.7 (ideal is between 20-25) Hepatitis C screening 41 2937410 Z11.59 -- tested negative for Hepatitis C on 09/23/22 HIV screening 623947744 Z11.4 -- tested negative for HIV on 09/23/22 Active or passive immunization 123163675 Z23 Screening for malignant neoplasm of colon 850237602 Z12.11 -- had colonoscop y with Gastroente rologist Dr Kuldeep Glynn around 2018 Screening for malignant neoplasm of breast 375786876 Z12.31 Gynecologi c examination 43855469 Z01.419 [id number] Frank Mcknight MD [employer], [employer] [address] [place] [address] 04/23/2023 18:01:13 04/23/2023 20:15:15 Vitamin D deficiency 93755664 E55.9 Vit D deficiency has been associated w/ increase risks for stroke, cancer, heart attack, dementia, poor immunity, and increased bone loss (risk for easy bone fracture). -- start over-the-c ounter Vit D3 2,000 units 1 gel capsule daily after thyroid surgery & recheck Vitamin D level in 3 months thereafter . Thyroid nodule 704506070 E04.1 -- pt reported that [facility] told her the thyroid nodule biopsy is cancerous and recommende d resection. -- pt goggled and found [facility] (Dr Rocky Robins) in [place]. Pt wants to go to [place] for a second opinion. She has appt on 05/01/23.-- pt will be cleared for thyroid surgery in the next 30 days Hyperlipidemia 45580419 E78.5 Based on the current ASCVD risk calculatio n of 1.1% on 10/01/22, no cholestero l Rx needed. Screening for malignant neoplasm of colon 399624198 Z12.11 - Gastroente rologist Dr Kuldeep Glynn recommends repeating colonoscop yt 5 years from 07/15/19 Break-thro ugh bleeding 84389524 N92.1 (menopause d) -- pt instructed to f/u w/ her [employer]ination Equipment Operator Dr Walton in [place] [id number] Frank Mcknight MD [employer] [address] [place] [address] 05/09/2023 10:27:08 05/09/2023 11:20:59 Malignant tumor of thyroid gland 765382314 C73 (s/p [facility] (Dr Rocky Robins) in [place] on 05/01/23) -- post surgery, pt reported that Dr Robins recommends radioactiv e Iodine. Postoperat deep hypothyroidism 24749699 E89.0 (s/p total thyroidect kevin and neck dissection w/ partial vocal cords removal)-- pt reported that Dr Robins told her he left the Parathyroi d intact-- pt wants referral to [facility]. Abnormal u terine bleeding 0679422415 9100 N93.9 -- pt reported she was told by Bromination Equipment Operator Dr Elpidio Cooper that she was post menopaused previously (was amenorrhea for about 2 years -- 03/11/21 was last day of her cycle but cycle came back Mar 2023)-- pt states her Bromination Equipment Operator Dr Cooper now told her that her ovaries has started producing estrogen again-- pt wants a second opinion; pt requesting referral to Dr Elliot Logan [id number] Frank Mcknight MD [facility] [address] [place] [address] 05/30/2023 12:30:59 05/30/2023 14:40:40 Atypical chest pain 180107110 R07.89 (occasiona l heaviness) -- check labs today Vitamin D deficiency 347 11222 E55.9 Vit D deficiency has been associated w/ increase risks for stroke, cancer, heart attack, dementia, poor immunity, and increased bone loss (risk for easy bone fracture). -- start over-the-c ounter Vit D3 2,000 units 1 gel capsule daily after thyroid surgery & recheck Vitamin D level in 3 months thereafter .-- check labs today Hyperlipidemia 33018760 E78.5 Based on the current ASCVD risk calculatio n of 1.1% on 10/01/22, no cholestero l Rx needed.-- check labs today Postoperat deep hypothyroidism 19774368 E89.0 (s/p total thyroidect kevin and neck dissection w/ partial vocal cords removal)-- pt reported that Dr Robins told her he left the Parathyroi d intact-- pt wants referral to [facility].-- check labs today Body mass index 30+ - obesity 410013019 Z68.32 -- advised weight loss; pt lost 4 # since her last visit-- BMI of 32.8 (ideal is between 20-25) Pain in left foot 280020 8848 23006 M79.672 (since beginning of Mar 2023; pt thinks it is from wearing bad shoes) Screening for osteoporosis 558891528 Z13.820 -- Bone density done on 12/12/22 [id number] Frank Mcknight MD [employer] [address] [place] [address] 08/07/2023 11:02:04 08/07/2023 13:03:29 Atypical chest pain 676094614 R07.89 (occasiona l heaviness) -- last time she had heaviness was on the weeking 2 days ago-- chest CTA on 06/04/23 showed mild cardiomega ly & 3 mm nodule in the posterior right apical lung.-- normal cardiac echo on 06/27/23-- pt is not anemic on 05/30/23 Vitamin D deficiency 347 75364 E55.9 Vit D deficiency has been associated w/ increase risks for stroke, cancer, heart attack, dementia, poor immunity, and increased bone loss (risk for easy bone fracture). -- start over-the-c ounter Vit D3 2,000 units 1 gel capsule daily after thyroid surgery & recheck Vitamin D level around 08/30/23 Hyperlipidemia 33202425 E78.5 Based on the current ASCVD risk calculatio n of 1.1% on 10/01/22, no cholestero l Rx needed.-- check labs 08/30/23 Postoperat deep hypothyroidism 61409613 E89.0 (s/p total thyroidect kevin and neck dissection w/ partial vocal cords removal)-- pt reported that Dr Robins told her he left the Parathyroi d intact-- pt wants referral to [facility].-- check labs 08/30/23 Pain in left foot 810914 5687 60011 M79.672 (since beginning of Mar 2023; pt thinks it is from wearing bad shoes) -- improving since off work Body mass index 30+ - obesity 396565508 Z68.32 -- advised weight loss; pt lost 2 # since her last visit-- BMI of 32.4 (ideal is between 20-25) Screening for osteoporosis 721679997 Z13.820 -- Bone density done on 12/12/22 Lymphocytosis 22558708 D 72.820 -- check lab(s) on 08/30/23 Solitary n odule of lung 997484584 R91.1 (3 mm Pulmonary nodule in Rt posterior apical lung on chest CTA on 06/04/23) -- need to do chest CT 6 months from 06/04/23. Hepatitis C screening 41 6509624 Z11.59 -- tested negative for Hepatitis C on 09/23/22 HIV screening 204116621 Z11.4 -- tested negative for HIV on 09/23/22 Active or passive immunization 933899455 Z23 Screening for malignant neoplasm of colon 499830508 Z12.11 - Gastroente rologist Dr Kuldeep Glynn recommends repeating colonoscop yt 5 years from 07/15/19 Screening for malignant neoplasm of breast 614099236 Z12.31 -- mammogram done on 12/12/22 Gynecologi c examination 20289029 Z01.419 [id number] Frank Mcknight MD [facility] [address] [place] [address] 11/01/2023 11:26:36 11/01/2023 13:04:08 Easy bruising 197316882 R58 -- pt advised to stop the Goodys which she takes for headaches. Pt informed that Goodys contains 520 m of Aspirin Vitamin D deficiency 347 48349 E55.9 Vit D deficiency has been associated w/ increase risks for stroke, cancer, heart attack, dementia, poor immunity, and increased bone loss (risk for easy bone fracture). Osteoarthr itis of knee 888133139 M17.9 (evident on xr knee done 09/01/22) Pain of bi lateral hip joints 5629912620 4994179 M25.551 M25.552 (L>>R) Hypothyroidism [id number] E03.9 -- Increase Levothyrox ine from 125 mcg daily --> to 125 mcg 1 tab every Sun, Sun, & Fridays; 137 mcg 1 tab on the remainder 4 other days (, Sat & Sundays). Recheck TFTs around 11/14/23 Hyperlipidemia 43567798 E78.5 Hyperlipid emia; pt will need to:-- avoid Cheese (cheese on burgers, Pizza, lasagna, Randell, Parmesan), -- you will also need to limit egg yolks to 2 yolks a week (but as many egg whites he wants).-- Avoid Lassiter,-- trim off fatty rubbery meat before consuming, -- avoid butter & Margarine, -- No whole milk or 2% milk (but 1%, 1/2% & fat free milk is fine). [id number] Frank Mcknight MD [facility] [address] [place] [address] 03/17/2024 14:02:11 03/17/2024 16:12:09 Adult health examination [id number] Z00.00 Hyperlipidemia 02707150 E78.5 Hyperlipid emia; pt will need to:-- avoid Cheese (cheese on burgers, Pizza, lasagna, Randell, Parmesan), -- you will also need to limit egg yolks to 2 yolks a week (but as many egg whites he wants).-- Avoid Lassiter,-- trim off fatty rubbery meat before consuming, -- avoid butter & Margarine, -- No whole milk or 2% milk (but 1%, 1/2% & fat free milk is fine). Easy bruising 730165219 R58 -- pt advised to stop the Goodys which she takes for headaches. Pt informed that Goodys contains 520 m of Aspirin-- on 03/17/24, pt reported the easy bruising has gone since she stopped the Goodys Pain of bi lateral hip joints 7400020158 0445004 M25.551 M25.552 (L>>R) Osteoarthr itis of knee 111255998 M17.9 (evident on xr knee done 09/01/22) Vitamin D deficiency 347 68070 E55.9 Vit D deficiency has been associated w/ increase risks for stroke, cancer, heart attack, dementia, poor immunity, and increased bone loss (risk for easy bone fracture). Atypical chest pain 1025 40133 R07.89 (occasiona l heaviness) -- last time she had heaviness was on the weekend-- chest CTA on 06/04/23 showed mild cardiomega ly & 3 mm nodule in the posterior right apical lung.-- normal cardiac echo on 06/27/23-- pt is not anemic on 05/30/23 Solitary n odule of lung 027931136 R91.1 (3 mm Pulmonary nodule in Rt posterior apical lung on chest CTA on 06/04/23) -- need to do chest CT 6 months from 06/04/23. Postoperat deep hypothyroidism 56497893 E89.0 (s/p total thyroidect kevin and neck dissection w/ partial vocal cords removal)-- pt reported that Dr Robins told her he left the Parathyroi d intact-- pt was referred to [facility] at pt's request -- Increase Levothyrox ine from 125 mcg daily --> to 125 mcg 1 tab every Sun, Sun, & Fridays; 137 mcg 1 tab on the remainder 4 other days (, Sat & Sundays). Recheck TFTs around 11/14/23 -- check labs within 7 days from 03/17/24 Pain in left foot 761036 8668 54383 M79.672 (since beginning of Mar 2023; pt thinks it is from wearing bad shoes) -- improving since off work-- no recurring pain since last visit Body mass index 30+ - obesity 502836072 Z68.33 -- advised weight loss; pt lost 2 # since her last visit-- BMI of 33.1 (ideal is between 20-25) Hepatitis C screening 41 4895677 Z11.59 -- tested negative for Hepatitis C on 09/23/22 HIV screening 515522689 Z11.4 -- tested negative for HIV on 09/23/22 Screening for osteoporosis 353984316 Z13.820 -- Bone density done on 12/12/22 Active or passive immunization 149802750 Z23 -- pt does not want Flu shot Screening for malignant neoplasm of colon 383931923 Z12.11 - Gastroente rologist Dr Kuldeep Glynn recommends repeating colonoscop y 5 years from 08/01/23 Screening for malignant neoplasm of breast 082710602 Z12.31 -- mammogram done on 12/12/22-- on 03/17/24, pt reports she already has appt at [facility] for screening mammogram scheduled for 03/20/24 Gynecologi c examination 89595997 Z01.419 Obstructiv e sleep apnea of adult 6962241923 103 G47.33 -- pt reported she had sleep study done around and was told she had mild sleep apnea on the home sleep study Monocytosis 24017330 D72 .821 -- check labs within 7 days from 03/17/24 [id number] Frank Mcknight MD [facility] [address] [place] [address] 09/15/2024 11:32:56 09/15/2024 13:42:43 Hyperlipidemia 49443588 E78.5 Hyperlipid emia; pt will need to:-- avoid Cheese (cheese on burgers, Pizza, lasagna, Randell, Parmesan), -- you will also need to limit egg yolks to 2 yolks a week (but as many egg whites he wants).-- Avoid Lassiter,-- trim off fatty rubbery meat before consuming, -- avoid butter & Margarine, -- No whole milk or 2% milk (but 1%, 1/2% & fat free milk is fine).-- check labs on 10/10/24 Pain of bi lateral hip joints 5452001995 1270917 M25.551 M25.552 (L>>R) -- xrays not done as pt forgot Osteoarthr itis of knee 110705295 M17.9 (evident on xr knee done 09/01/22) Vitamin D deficiency 347 80792 E55.9 Vit D deficiency has been associated w/ increase risks for stroke, cancer, heart attack, dementia, poor immunity, and increased bone loss (risk for easy bone fracture). -- check labs on 10/10/24 Postoperat deep hypothyroidism 61134377 E89.0 (s/p total thyroidect kevin and neck dissection w/ partial vocal cords removal)-- pt reported that Dr Robins told her he left the Parathyroi d intact-- pt was referred to [facility] at pt's request -- Increase Levothyrox ine from 125 mcg daily --> to 125 mcg 1 tab every Sun, Sun, & Fridays; 137 mcg 1 tab on the remainder 4 other days (, Sat & Sundays). Recheck TFTs around 11/14/23 -- check labs on 10/10/24 Atypical chest pain 1025 98993 R07.89 (occasiona l heaviness) -- last time she had heaviness was on the weekend-- chest CTA on 06/04/23 showed mild cardiomega ly & 3 mm nodule in the posterior right apical lung.-- normal cardiac echo on 06/27/23-- pt is not anemic on 05/30/23 Solitary n odule of lung 002372029 R91.1 (3 mm Pulmonary nodule in Rt posterior apical lung on chest CTA on 06/04/23) -- need to do chest CT 6 months from 06/04/23 but not done; will re-order Monocytosis 98331527 D72 .821 -- check labs on 10/10/24 Pain in left foot 350965 5517 96030 M79.672 (since beginning of Mar 2023; pt thinks it is from wearing bad shoes) -- improving since off work-- no recurring pain since last visit Easy bruising 896586051 R58 -- pt advised to stop the Goodys which she takes for headaches. Pt informed that Goodys contains 520 m of Aspirin-- on 03/17/24, pt reported the easy bruising has gone since she stopped the Goodys Screening for osteoporosis 270631584 Z13.820 -- Bone density done on 12/12/22 Body mass index 30+ - obesity 329577754 Z68.33 -- advised weight loss; pt gained 7 # since her last visit-- BMI of 34.4 (ideal is between 20-25) Hepatitis C screening 41 2430992 Z11.59 -- tested negative for Hepatitis C on 09/23/22 HIV screening 136781106 Z11.4 -- tested negative for HIV on 09/23/22 Active or passive immunization 646915471 Z23 -- pt does not want Flu shot Screening for malignant neoplasm of colon 575908562 Z12.11 - Gastroente rologist Dr Kuldeep Glynn recommends repeating colonoscop y 5 years from 08/01/23 Screening for malignant neoplasm of breast 240307578 Z12.31 -- mammogram done on 12/12/22-- on 09/15/24, pt reports she already has appt at [facility] for screening mammogram scheduled for 03/20/23 Gynecologi c examination 21728965 Z01.419 Obstructiv e sleep apnea syndrome 53892636 G47.33 -- pt reported on 09/15/[address] Herrera dx'd her w/ moderate sleep apnea and is currently on CPAP Health Concerns Section Related Observation LastModified by Organization Detai ls LastModified Time None Recorded Concern Status LastModified by Organization Details LastModified Time None Recorded Advance Directives Directive N: Payers Insurance Date Sequence Insurance Name Policy Number Policy Lamb Covered Member ID Lamb Member ID Guarantor Name 03/17/2024 1 [facility] [id number] Lurdes Strong [id number] Lurdes Strong 10/03/2024 1 [place] [id number] Lurdes Strong [id number] Lurdes Strong 03/17/2024 1 [employer] [id number] Lurdes Strong [id number] Lurdes Strong Notes Date Note Type Note Provider Name and Address Organization Details Recorded Time 05/30/2023 text/html Pt comes in to g et clearance to go back to work. She c/o occasional hoarseness and chest heaviness (like taking a deep breath and sighing). Pt also c/o left dorsal mid foot pain (which she believes is from wearing bad shoes). Pt feels well and has no c/o. Pt has no new sx and no increasing sx. Patient denies any jaw or neck discomfort, left arm pain/left arm discomfort, chest discomfort/pain, diaphoresis, breathing symptoms/chest tightness, indigestion sx, n/v, any angina equivalent symptoms, etc. Frank Mcknight MD [address], [place], [address], [facility] 05/30/2023 14:41:53 08/07/2023 text/html Pt comes in for f/u of chest pain, lung nodule, HLD, post-op Hypothyroidism, Vit D def and weight. Pt feels well and has no c/o. Pt has no new sx and no increasing sx. Patient denies any jaw or neck discomfort, left arm pain/left arm discomfort, chest discomfort/pain, diaphoresis, breathing symptoms/chest tightness, indigestion sx, n/v, any angina equivalent symptoms, etc. Frank Mcknight MD [address], [place], [address], [facility] 08/07/2023 13:02:14 11/01/2023 text/html Pt comes in for Easy bruising. She takes Goodys from [employer] for hip and knee pain). Pt is also here for f/u of Hypothyroidism, Vit D def, and HLS. Pt feels well and has no c/o. Pt has no new sx and no increasing sx. Patient denies any jaw or neck discomfort, left arm pain/left arm discomfort, chest discomfort/pain, diaphoresis, breathing symptoms/chest tightness, indigestion sx, n/v, any angina equivalent symptoms, etc. Frank Mcknight MD [address], [place], [address], [facility] 11/01/2023 13:04:33 03/17/2024 text/html Pt comes in for annual PE and also for f/u of HLD, OA, Hypothyroidism, lung nodule, JUDIE, and weight monitoring. Pt feels well and has no c/o. Pt has no new sx and no increasing sx. Patient denies any jaw or neck discomfort, left arm pain/left arm discomfort, chest discomfort/pain, diaphoresis, breathing symptoms/chest tightness, indigestion sx, n/v, any angina equivalent symptoms, etc. Frank Mcknight MD [address], [place], [address], [facility] 03/17/2024 16:12:05 09/15/2024 text/html Pt comes in for f/u of HLD, JUDIE, OA, Hypothyroidism and weight. Frank Mcknight MD [address], [place], [address], [facility] 09/15/2024 13:41:46 OBGyn Episode No OBEpisode recorded.
--- OUTSIDE RECORDS SUMMARY | 2024-10-06 18:27 | XMS_ITS ---
Author Organization [facility] Address [address] [place] [address] Care Team Providers Care Cell Stripper Final Name Role Phone ALLEN REYNOLDS, HARLEY Singh Unavailable Linda Em Unavailable [phone] REASON FOR VISIT eval/surgery Encounters Encounter Location Date Provider Diagnosis [address] [address] 05/01/2023 Linda Em Plan Of Treatment No Information Progress Notes * Hunter STRONGadiaDOB:1970 (54 yo F)Acc No.[id number]:05/01/2023 Patient: Lurdes ALEGRIA Provider: Quan Em MD :1970 A ge:52 Y S ex:Female Date:05/01/2023 Address:[address] * * Electronic signature of Lazara Em MD on 10/06/2024 at 07:27 PM EDT Sign off status: Pending * Provider: Quan Em MD Date: 05/01/2023 Generated for Minai ng/Fabassamg/eTransmitting on: 0 10/06/2024 07:27 PM EDT
--- OUTSIDE RECORDS SUMMARY | 2024-10-06 18:27 | XMS_ITS | Patient Health Record ---
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
--- OUTSIDE RECORDS SUMMARY | 2024-10-06 18:27 | XMS_ITS | Continuity of Care Document ---
Author Organization [facility] Address [address] [place] [address] [place] [address] Phone Care Team Providers Care Combat Systems Officer Name Role Phone Azar Sanches MD Unavailable Unavailable Allergies, Adverse Reactions, Alerts Substance Reaction Status Criticality No Known Allergies Active No Inform ation Medications Medication Instructions Dosage Effective Dates (start - stop) Status Comments buspirone 10 mg tablet take 1 tablet by oral route 2 times every day 10 MG - Active avoid driving or operate machines Vistaril 50 mg capsule take 1 capsule by oral route every bedtime as needed 50 MG - Active PRN for insomnia, avoid driving or operate machines Procedures Procedure Date PREV VISIT, EST, AGE 40-64 OFFICE/OUTPATIENT VISIT, EST OFFICE/OUTPATIENT VISIT, EST OFFICE/OUTPATIENT VISIT, EST PREV VISIT, NEW, AGE 40-64 OFFICE/OUTPATIENT VISIT, NEW Advance Directives Directive Yes / No Effective Date File Name No Information Encounters Encounter Description Practice Location Reason(s) For Visit Diagnoses Date Provider Providers Copied on Encounter [facility] [place], [address] [place], [place], [id number], [place] tel:[phone] [facility] No Information 2 Myron Askew. [address] [place], [place], [id number] , [place]. tel:[phone] PREV VISIT, EST, AGE 40-64 [facility] [place], [address] [place], [place], [address], [place] tel:[phone] [facility] physical (chief complaint) Encounter for general adult medical examination without abnormal findings 1 Myron Saravia [address], [place], [place], [address] , [place]. tel:[phone] OFFICE/OUTPA TIENT VISIT, [facility], [address], [place], [place], [address], [place] tel:[phone] [facility] [place] goiter1 (chief complaint) fatigue1 (chief complaint) cardiac1 (chief complaint) sleep apnea1 (chief complaint) Cardiac murmurThyroid noduleSleep apnea 0 Myron Saravia [address], [address], [place], [place], [address] , [place]. tel:[phone] OFFICE/OUTPA TIENT VISIT, [facility], [address], [place], [place], [address], [place] tel:[phone] [facility] [place] thyroid nodule1 (chief complaint) calcium1 (chief complaint) hematuria1 (chief complaint) heart (chief complaint) polyp1 (chief complaint) fatigue1 (chief complaint) HematuriaHypercalce miaThyroid noduleCardiac murmurPolyp of colonFatigue 0 Myron Saravia [address], [place], [place], [address] , [place]. tel:[phone] OFFICE/OUTPA TIENT VISIT, [facility], [address], [place], [place], [address], [place] tel:[phone] [facility] [place] murmur1 (chief complaint) hematuria1 (chief complaint) hypercalci um (chief complaint) thyroid nodule1 (chief complaint) sinus (chief complaint) HypercalcemiaHematu riaThyroid noduleCardiac murmurMigraine 0 Myron Saravia [address], [place], [place], [address] , [place]. tel:[phone] PREV VISIT, NEW, AGE 40-64 [facility] [place], [address], [place], [place], [address], [place] tel:[phone] [facility] Physical (chief complaint) Encounter for general adult medical exam w abnormal findingsThyroid noduleCardiac murmurMigraineHemor rhoid 0 Myron Saravia [address], [place], [place], [address] , [place]. tel: [phone] Family History Family Member Type Diagnosis Age At Onset Mother Problem (finding) Diabetes mellitus Father Problem (finding) of enlarged heart 67 Brother Problem (finding) Alive and well Payers Payer name Insurance type Covered constitution party ID Authoriza tion(s) No Information Social History Type Description Quantity Date Captured Comments Alcohol Use Details Unknown Caffeine Use Details Unknown Tobacco Use Status No Information Smoking Status No Information Sex Female Chief Complaint And Reason For Visit No Information Plan Of Treatment Date Type Action Status Referral Ordered: Almas Goel -Allopathic & Osteopathic Physicians : Internal Medicine : Endocrinology, Diabetes & Metabolism (related to Encounter for general adult medical examination without abnormal findings) ordered Referral Referred To: Almas Goel [address] [facility]
[address] [place], [place], [phone] Ordered: Referrals: Allopathic & Osteopathic Physicians : Internal Medicine : Endocrinology, Diabetes & Metabolism. Almas Goel. Evaluate and treat ordered Referral Ordered: Cardiology (related to Cardiac murmur) ordered Referral Ordered: Janette Michaud -[facility]opathic Physicians : Internal Medicine : Endocrinology, Diabetes & Metabolism (related to Thyroid nodule) ordered Referral Ordered: SLEEP STUDY, ATTENDED ordered Referral Ordered: US GUIDANCE ordered Referral Ordered: Referrals: Cardiology. Evaluate and treat ordered Referral Ordered: Janette Michaud -[facility]opathic [facility] Osteopathic Physicians : Internal Medicine : Endocrinology, Diabetes & Metabolism (related to Thyroid nodule) ordered Referral Ordered: DOPPLER ECHO EXAM, HEART ordered Referral Ordered: MAMMOGRAM, SCREENING ordered Referral Referred To: Janette Michaud [address] [facility]
[address] [place], [place] [id number] Ordered: Referrals: Allopathic & Osteopathic Physicians : Internal Medicine : Endocrinology, Diabetes & Metabolism. Janette Michaud. Evaluate and treat ordered Referral Ordered: US THYROID ordered Referral Ordered: COLONOSCOPY AND BIOPSY ordered History Of Present Illness Encounter Date Complaint History Of Prese nt Illness physical Pt needs annual physical. Pt feels very stressed out and anxious and mildly depressed recently .Pt states that she is being harassed by upper management at work and she got the union involved. Pt feels very anxious and unable to fall asleep and she feels irritable. Pt feels very edgy. Pt denies any suicidal or homicidal thought .Pt denies any crying spells. Pt wants to try something for her anxiety. Pt also has been having insomnia as well. pt feels fatigue with low energy. Pt feels hyperventilating sometimes due to anxiety. Pt also has history of thyroid nodule with negative biopsy Pt denies any dysphagia or neck pain. Pt denies any other complaints goiter1 Pt has goiter. P t saw endo and was told to monitor and return in february. Her thyroid nodule biopsy were benign fatigue1 Pt has mild slee p apnea. Pt does not want cpap. Pt does snore and feels fatigue cardiac1 Pt saw cardiolog y and was told she is clear of any active cardiac issue per patient PT denies any chest pian or palpitation or sob sleep apnea1 thyroid nodule1 Pt has multinodu lar goiter .pt denies any neck pain or dysphagia. Pt has normal TSH and TPO and TSI calcium1 Pt had mildly el evated calcium. Her repeat ionized calcium is ok and PTh ok also hematuria1 Pt denies any UT I symptoms, hematuria resolved. heart Pt has cardiac m urmur Pt has family history of dilated cardiomyopathy. Cardiac echo showed right ventricular enlargement and borderline dilation of the inferior vena cava. Pt denies any chest pain or sob polyp1 Pt had colonosco py done which showed benign polyp per pt recently pt denies any Gi bleeding or Gi issue fatigue1 Pt feels fatigue . Pt does snore at night. Pt does have right side ventricular enlargement .Pt denies any chest pain or sob sinus Pt states that s he has menstrual migraines for many years .Pt has photophobia without nausea during menstrual period. Pt denies any head injury or waking up at night with headache. thyroid nodule1 Pt has right rito e enlarged thyroid. Pt has not done thyroid ultrasound yet Her TSH and TPO and TSI are ok. Pt denies any dysphagia or neck pain . hypercalcium Pt has borderlin e high calcium .Pt denies any bone pain hematuria1 Pt has hematuria . pt was on her period when she did lab Pt denies any UTi symptoms murmur1 Pt has cardiac m urmur, pt has family history of cardiomyopathy. Pt denies any chest pain or sob. Physical Pt needs annual physical Pt notices enlarged right side thyroid nodule since last week pt denies any neck pain Pt denies any dysphagia. Pt denies any chest pain, weight gain or loss Pt denies any constipation or diarrhea. Pt has chronic menstrual period migraines. Pt has throbbing headache with photophobia with headache without nausea towards the end of her menstrual period ,Pt has above headache for many years and she does not have any headache rest of the time. Pt also has external hemorrhoid for one year and she notices some pain and occasional bright red blood when she wipe. Pt denies any other complaints Instructions Date Instruction Additional Infor mation No Information Assessments Type Assessment Date No Information
--- OUTSIDE RECORDS SUMMARY | 2024-10-06 18:27 | XMS_ITS | Continuity of Care Document ---
Author Organization Formerly [facility]. 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 Saw Robles MD Allergies and Adverse Reactions No Known Allergies(Allergy) Onset: 24-Apr-2023 Medications levothyroxine sodium 0.137 M G Oral Tablet [Synthroid];137 MICROGRAM PO AC BK Start:03-May-2023 Comments:137 MCG PO AC BK amoxicillin 500 MG / clavula monica 125 MG Oral Tablet;500 MILLIGRAM PO Q12HR Start:02-May-2023 Comments:500 MG PO Q12HR levothyroxine sodium 0.137 M G Oral Capsule [Tirosint];137 MICROGRAM PO AC BK Start:02-May-2023 Comments:137 MCG PO AC BK rocuronium bromide 10 MG/ML Injectable Solution;Provider Administration Instructions:Bolus: 1 mg/kg IVP over 1 minuteInitial Rate:10 mcg/kg/min and titrate to desired TOFNOTIFY PHYSICIAN FOR MAX RATE > 16 MCG/KG/MIN Quantity:1 Saw Robles MD Start:01-May-2023 Status:Discontinued Comments:Provider Administration Instructions:Bolus: 1 mg/kg IVP over 1 minuteInitial Rate:10 mcg/kg/min and titrate to desired TOFNOTIFY PHYSICIAN FOR MAX RATE > 16 MCG/KG/MIN GLYCOPYRROLATE Quantity:1 Shimon Alvarez MD Start:01-May-2023 10 ML sodium chloride 9 MG/M L Injection Quantity:1 Shimon Alvarez MD Start:01-May-2023 Status:Discontinued 1 ML phenylephrine hydrochlo ride 10 MG/ML Injection [Vazculep];Provider Administration Instructions:CAUTION: This medication is a vesicant and should bediluted and administered slowly through a running IV. Quantity:1 Shimon Alvarez MD Start:01-May-2023 Status:Discontinued Comments:Provider Administration Instructions:CAUTION: This medication is a vesicant and should bediluted and administered slowly through a running IV. 10 ML sodium chloride 9 MG/M L Injection Quantity:1 Shimon Alvarez MD Start:01-May-2023 Status:Discontinued 10 ML tranexamic acid 100 MG /ML Injection Quantity:1 Shimon Alvarez MD Start:01-May-2023 Status:Discontinued ceFAZolin 1000 MG Injection;Provider Administration Instructions:1 GRAM/SWFI 10ML:Dilute in 10 ml Sterile WaterIV Push over minimum 3 minutes2 GRAM/SWFI 20ML:Dilute each 1 gram vial in 10 ml Sterile WaterIV Push each 1 gram vial over minimum 3 minutes3 GRAM/SWFI 30ML: Quantity:1 Shimon Alvarez MD Start:01-May-2023 Comments:Provider Administration Instructions:1 GRAM/SWFI 10ML:Dilute in 10 ml Sterile WaterIV Push over minimum 3 minutes2 GRAM/SWFI 20ML:Dilute each 1 gram vial in 10 ml Sterile WaterIV Push each 1 gram vial over minimum 3 minutes3 GRAM/SWFI 30ML: BUPivacaine hydrochloride 5 MG/ML / EPINEPHrine 0.005 MG/ML Injectable Solution [Sensorcaine with EPINEPHrine] Quantity:1 Shimon Alvarez MD Start:01-May-2023 Status:Discontinued 100 ML acetaminophen 10 MG/M L Injection [Ofirmev];Provider Administration Instructions:IF AN IV AND PO PAIN MEDICATION ARE ORDERED FOR THE SAMEPAIN LEVEL, THE PO MEDICATION WILL BE ADMINISTEREDPREFERENTIALLY WHEN THE PATIENT IS ABLE TO TAKE PO.(May administer less potent prescribed medication based Quantity:1 Shimon Alvarez MD Start:01-May-2023 Status:Discontinued Comments:Provider Administration Instructions:IF AN IV AND PO PAIN MEDICATION ARE ORDERED FOR THE SAMEPAIN LEVEL, THE PO MEDICATION WILL BE ADMINISTEREDPREFERENTIALLY WHEN THE PATIENT IS ABLE TO TAKE PO.(May administer less potent prescribed medication based esmolol hydrochloride 10 MG/ ML Injection [Brevibloc];Provider Administration Instructions:CAUTION: This medication is a vesicant and should bediluted and administered slowly through a running IV.BETA NANCI Quantity:1 Shimon Alvarez MD Start:01-May-2023 Status:Discontinued Comments:Provider Administration Instructions:CAUTION: This medication is a vesicant and should bediluted and administered slowly through a running IV.BETA NANCI SUGAMMADEX SODIUM 200 MG/2 M L ML Quantity:1 Shimon Alvarez MD Start:01-May-2023 docusate sodium 100 MG Oral Capsule;100 MILLIGRAM BID Quantity:1 Shimon Alvarez MD Start:01-May-2023 Status:Discontinued Comments:[id number] Administration Instructions:DO NOT CRUSH, CHEW, OR CUT LIDOCAINE HCL/PF 2% VIAL (10 0 MG/5 ML) Quantity:1 UNGDU Start:01-May-2023 Status:Discontinued 2 ML ondansetron 2 MG/ML Injection;Provider Administration Instructions:ADMINISTER SLOW IVP OVER 2 MINUTESIF PATIENT HAS BOTH PHENERGAN (PROMETHAZINE) ANDZOFRAN (ONDANSETRON) ORDERED, GIVE PHENERGAN FIRST ANDZOFRAN 1 HOUR LATER IF THE PHENERGAN IS INEFFECTIVE INRELIEVING NAUSEA AND/OR VOMITING. Quantity:1 UNGDU Start:01-May-2023 Status:Discontinued Comments:Provider Administration Instructions:ADMINISTER SLOW IVP OVER 2 MINUTESIF PATIENT HAS BOTH PHENERGAN (PROMETHAZINE) ANDZOFRAN (ONDANSETRON) ORDERED, GIVE PHENERGAN FIRST ANDZOFRAN 1 HOUR LATER IF THE PHENERGAN IS INEFFECTIVE INRELIEVING NAUSEA AND/OR VOMITING. 1 ML dexAMETHasone phosphate 10 MG/ML Injection Quantity:1 Start:01-May-2023 Status:Discontinued rocuronium bromide 10 MG/ML Injectable Solution;Provider Administration Instructions:Bolus: 1 mg/kg IVP over 1 minuteInitial Rate:10 mcg/kg/min and titrate to desired TOFNOTIFY PHYSICIAN FOR MAX RATE > 16 MCG/KG/MIN Quantity:1 Start:01-May-2023 Status:Discontinued Comments:Provider Administration Instructions:Bolus: 1 mg/kg IVP over 1 minuteInitial Rate:10 mcg/kg/min and titrate to desired TOFNOTIFY PHYSICIAN FOR MAX RATE > 16 MCG/KG/MIN ceFAZolin 1000 MG Injection;Provider Administration Instructions:1 GRAM/SWFI 10ML:Dilute in 10 ml Sterile WaterIV Push over minimum 3 minutes2 GRAM/SWFI 20ML:Dilute each 1 gram vial in 10 ml Sterile WaterIV Push each 1 gram vial over minimum 3 minutes3 GRAM/SWFI 30ML: Quantity:1 Start:01-May-2023 Comments:Provider Administration Instructions:1 GRAM/SWFI 10ML:Dilute in 10 ml Sterile WaterIV Push over minimum 3 minutes2 GRAM/SWFI 20ML:Dilute each 1 gram vial in 10 ml Sterile WaterIV Push each 1 gram vial over minimum 3 minutes3 GRAM/SWFI 30ML: 2 ML midazolam 1 MG/ML Injec tion Quantity:1 Start:01-May-2023 Status:Discontinued KETAMINE HCL 50 MG/ML Syring e Quantity:1 Start:01-May-2023 Status:Discontinued 20 ML propofol 10 MG/ML Inje ction [Diprivan];Provider Administration Instructions:CAUTION: This medication is a vesicant and should bediluted and administered slowly through a running IV. MAY ONLY BE BOLUSED BY PHYSICIAN WHO IS PRIVILEDGEDTO GIVE DEEP SEDATION Quantity:1 UNGDU Start:01-May-2023 Status:Discontinued Comments:Provider Administration Instructions:CAUTION: This medication is a vesicant and should bediluted and administered slowly through a running IV. MAY ONLY BE BOLUSED BY PHYSICIAN WHO IS PRIVILEDGEDTO GIVE DEEP SEDATION gabapentin 300 MG Oral Capsu le [Neurontin] Quantity:1 Shimon Alvarez MD Start:01-May-2023 1 ML phenylephrine hydrochlo ride 10 MG/ML Injection [Vazculep];Provider Administration Instructions:CAUTION: This medication is a vesicant and should bediluted and administered slowly through a running IV. Quantity:1 Shimon Alvarez MD Start:01-May-2023 Status:Discontinued Comments:Provider Administration Instructions:CAUTION: This medication is a vesicant and should bediluted and administered slowly through a running IV. LIDOCAINE 4% TOPICAL SOLN UD 1ML SYRINGE Quantity:1 Shimon Alvarez MD Start:01-May-2023 Status:Discontinued
--- OUTSIDE RECORDS SUMMARY | 2024-10-06 18:27 | XMS_ITS | Clinical Summary ---
Author Organization [facility] Address [address] [place] [id number] Care Team Providers Care Alternative Energy Technician Name Role Phone Esvin Carbajal MD Primary Care Provider [phone] Social History Tobacco Use Types Packs/Day Years Used Date Smoking Tobacco: Never Assessed Comments Unknown Sex and Gender Information Value Date Recorded Sex Assigned at Not on file Legal Sex Female 8:14 AM CDT Gender Identity Not on file Sexual Orientation Not on file Plan of Treatment Health Maintenance Due Date Last Done Comments Cervical Cancer Screening Pa p Smear (Age 30 to 64) Every 3 Years 1969 Colorectal Cancer Screening Colonoscopy (10 Years) 1969 Annual Physical 1972 Hepatitis C 09/30/1987 DTaP, Tdap and Td Vaccines ( 1 - Tdap) 1988 Hepatitis B Vaccines (1 of 3 - 19+ 3-dose series) 1988 Cervical Cancer Screening Pa p with HPV Testing (Age 30 to 64) Every 5 Years 09/30/1999 Cervical Cancer Screening with HPV 09/30/1999 Pneumococcal Vaccine: 50+ Ye ars (1 of 1 - PCV) 09/30/2019 Zoster Vaccines (1 of 2) 09/30/2019 COVID-19 Vaccine (2023-2 5 season) 2023 Mammogram Screening 03/20/2026 03/20/2024 Meningococcal B Vaccine Aged Out No l onger eligible based on patient's age to complete this topic Meningococcal Vaccine Aged Out No jessica cruzito eligible based on patient's age to complete this topic RSV Immunizations Under 20 Months Aged Out No longer eligible based on patient's age to complete this topic Insurance [facility] Care Teams Alternative Energy Technician Relationship Specialty Start Date End Date Esvin Carbajal MD [address] [facility] [address] [place] [address] PCP - General INTERNAL MEDICINE 06/04/23
--- OUTSIDE RECORDS SUMMARY | 2024-10-06 18:27 | XMS_ITS | Referral Summary ---
Author Organization [facility] Address [address] [place] [address] Care Team Providers Care Parts Processor Name Role Phone Esvin Carbajal MD Unavailable Esvin Carbajal MD Primary Care Provider [phone] Encounters Date Type Department Care Team Description 09/04/2024 8:30 AM CDT Office Visit [facility] [address] [place] [phone] Rachael Hdez, CHANI Obstructive sleep apnea (Primary Dx) from Last 3 Months Allergies No known active allergies Medications Proctozone-HC 2.5 % rectal cream Apply 1 application (deactivated) topically daily 0 Active ergocalciferol (VITAMIN D) 50,000 unit capsule Take 1 capsule (50,000 Units total) by mouth once a week Active levothyroxine (SYNTHROID) 137 mcg tablet Take one tablet by mouth on Sunday through Sunday (125mcg on Sunday) 78 tablet 3 4 Active levothyroxine (SYNTHROID) 125 mcg tablet Take one tablet by mouth on Sundays, (137mcg on Sunday -Sunday) 12 tablet 3 4 Active Active Problems Problem Noted Date Diagnosed Date Obstructive sleep apnea 09/04/2024 Assessment & Plan (09/04/2024 9:21 AM CDT): The patient was encouraged to increase the use of her CPAP set at auto titrating range 4-20 cm water pressure while sleeping. Her DME is [facility] in [place]. Lung nodule 12/10/2023 Assessment & Plan (12/10/2023 10:54 AM CDT): Follow up CT chest later this year PMB (postmenopausal bleeding) 06/07/2023 Papillary thyroid carcinoma 06/06/2023 Assessment & Plan (12/10/2023 1:50 PM CDT): S/p GARCIA 200 mCi given lung nodules Neck US today showed No evidence of tumor recurrence. within the pretracheal area, there are areas of hyper and hypoechoic soft tissues without discrete nodularity which could represent postsurgical changes and/or residual thyroid tissue. Will obtain tumor markers Plan to repeat CT chest to follow up on lung nodules Follow up NM thyroid scan Assessment & Plan (06/06/2023 9:38 AM CDT): Requested outside path reports , based on LN biopsy in OR , papillary thyroid cancer Suggested GARCIA given small lung nodule and h/o multiple LNs , as well as patient preferences Plan biochemical testing today Referral to [place] for GARCIA ROV with neck US and biochemical markers in 6 months Postoperative hypothyroidism 06/06/2023 Assessment & Plan (12/10/2023 10:54 AM CDT): Continue current levothyroxine dose. Will check thyroid function test and adjust levothyroxine dose accordingly. TSH goal suppression Assessment & Plan (06/06/2023 9:37 AM CDT): Continue current levothyroxine dose. Will check thyroid function test and adjust levothyroxine dose accordingly. TSH goal < 0.5 pending path review Amenorrhea 08/24/2022 Fatigue 08/24/2022 Hemorrhoids 08/24/2022 Hyperlipidemia 08/24/2022 Lumbar radiculopathy 08/24/2022 Migraine 08/24/2022 Polyp of colon 08/24/2022 Goiter 08/24/2022 Vitamin D deficiency 08/24/2022 Assessment & Plan (12/10/2023 10:57 AM CDT): Continue Vit D Thyroid nodule 06/16/2021 Obesity (BMI 30.0-34.9) 08/16/2019 Assessment & Plan (08/16/2019 5:52 PM CDT): Chronic, worsening Discussed about healthy lifestyle habits advise to work on healthy diet, avoid processed foods , increase vegetables and protein and cut back on carb portions and also avoid fruit juices and regular soda and desserts Increase physical activity , recommend at least 150 min of aerobic activity per week and include resistance training 2 x weekly Non-toxic multinodular goiter 06/26/2019 Assessment & Plan (02/18/2020 4:15 PM RUBBER ENGRAVER): History of multiple right thyroid nodules diagnosed 07/07/2019 Status post right superior and right inferior thyroid nodule FNA biopsy with benign cytology Performed a follow-up thyroid ultrasound in office today Noted overall size stable multiple right thyroid nodules. No compressive symptoms Last TSH within normal limits Follow-up in 1 year Assessment & Plan (08/16/2019 5:58 PM CDT): Reviewed recent pt outside thyroid ultrasound report and cytology results Pt has enlarged goiter right thyroid lobe >> left lobe Right thyroid lobe with 2 dominant thyroid nodules measuring 3 cm and 2.7 cm Pt recently underwent FNA biopsy at [facility] and cytology came back both as benign follicular nodule Pt at this time has no compressive symptoms Recent TSH 06/2019 - WNL Explained pt that there is no medication or supplement is required at this time to shrink her thyroid If in future pt TSH is high and she develops hypothyroidism than only we use Levothyroxine therapy. Advise to look for any compressive symptoms If compressive symptoms develop pt need surgical excision Otherwise we will be following up in 6 months in office with repeat physical exam and thyroid ultrasound to follow up on thyroid Nodules sizes. Abnormal weight gain 08/20/2017 Overview (06/07/2023): Abnormal weight gain;Practice ID: [id number] Missed 08/16/2016 Overview (06/07/2023): Missed ;Practice ID: [id number] Resolved Problems Problem Noted Date Diagnosed Date Resolved Date Snoring 05/05/2024 09/04/2024 Assessment & Plan (05/05/2024 8:58 AM RUBBER ENGRAVER): The patient presents with snoring and excessive daytime hypersomnia. I have recommended proceeding with a nocturnal polysomnogram with a split night protocol if necessary and no MSLT. She will follow up here in 4 months. Other fatigue 08/20/2017 09/04/2024 Overview (06/07/2023): Other fatigue;Practice ID: 0001 Social History Tobacco Use Types Packs/Day Years Used Date Smoking Tobacco: Never Smokeless Tobacco: Never Tobacco Cessation:Counseling Given: Yes PHQ-2 Answer Date Recorded PHQ-2 Total Score (If total score is 3 or more points, staff should administer the PHQ-9) 0 08/14/2019 Comments Unknown Sex and Gender Information Value Date Recorded Sex Assigned at Not on file Legal Sex Female 6:23 AM RUBBER ENGRAVER Gender Identity Not on file Sexual Orientation Not on file Last Filed Vital Signs Vital Sign Reading Time Taken Comments Blood Pressure 120/80 09/04/2024 8:33 AM CDT Pulse 76 09/04/2024 8:33 AM CDT Temperature 35.8 C (96.5 F) 09/04/2024 8:33 AM CDT Respiratory Rate 16 09/04/2024 8:33 AM CDT Oxygen Saturation 97% 09/04/2024 8:33 AM CDT Inhaled Oxygen Concentration - - Weight 87.5 kg (193 lb) 09/04/2024 8:33 AM CDT Height 160 cm (5' 3) 09/04/2024 8:33 AM CDT Body Mass Index 34.19 09/04/2024 8:33 AM CDT Plan of Treatment Not on file Procedures Procedure Name Priority Date/Time Associated Diagnosis Comments SCREENING MAMMOGRAM BILATERAL W MOODY Schedule Routine, Read Routine (OP Routine) 03/20/2024 3:37 PM RUBBER ENGRAVER Screening mammogram, encounter for from Last 3 Months or Most Recently Relevant to Health Maintenance Results * Screening Mammogram Bilateral W Moody (03/20/2024 3:37 PM RUBBER ENGRAVER) Anatomical Region Laterality Modality Breast Bilateral Mammography Narrative 03/21/2024 10:32 AM RUBBER ENGRAVER Mammogram Technique: Bilateral Digital Breast Tomosynthesis, Bilateral C-view 2D Screening mammogram. Views obtained: bilateral craniocaudal and bilateral mediolateral oblique. Computer Aided Detection was performed. Mammogram Findings: The present examination has been compared to a prior imaging study performed at [facility] on 12/12/2022. The breasts are heterogeneously dense, which may obscure small masses. There is no suspicious abnormality in either breast. Impression: There is no mammographic evidence of malignancy. Annual screening mammography is recommended. If supplemental screening is desired, breast MRI would be recommended in this patient with heterogeneously dense breasts. OVERALL FINAL ASSESSMENT: BI-RADS CATEGORY 1: Negative. Procedure Note Virgie Hdez MD - 03/21/2024 Mammogram Technique: Bilateral Digital Breast Tomosynthesis, Bilateral C-view 2D Screening mammogram. Views obtained: bilateral craniocaudal and bilateral mediolateral oblique. Computer Aided Detection was performed. Mammogram Findings: The present examination has been compared to a prior imaging study performed at [facility] on 12/12/2022. The breasts are heterogeneously dense, which may obscure small masses. There is no suspicious abnormality in either breast. Impression: There is no mammographic evidence of malignancy. Annual screening mammography is recommended. If supplemental screeningis desired, breast MRI would be recommended in this patient with heterogeneously dense breasts. OVERALL FINAL ASSESSMENT: BI-RADS CATEGORY 1: Negative. us Self Screening Mammogram IMG MAMMO PROCEDURES Fi nal Result from Last 3 Months or Most Recently Relevant to Health Maintenance Insurance [facility] Care Teams Parts Processor Relationship Specialty Start Date End Date Esvin Carbajal MD [address] [place] [address] PCP - General Internal Medicine 06/08/23 Esvin Carbajal MD [address] [place] [address] Referring Physician Internal Medicine 03/15/23
--- OUTSIDE RECORDS SUMMARY | 2024-10-06 18:27 | XMS_ITS | Clinical Summary ---
Author Organization [facility] Address [address] [place] [address] Care Team Providers Care Sheet Metal Foreman Name Role Phone Azar Sanches MD Primary Care Provider [phone] Source Comments [facility] Webs,non-owned Affiliates and Associated Physician Practices is amultiple site organization consisting of ambulatory clinics and hospital sitesin [place], [place], [place] and [place]. This disclosure is being madepursuant to the Care Everywhere program and may not contain all information available regarding this patient. Last updated 17.[facility] Webs Allergies No known active allergies Medications * Be aware that medications may not be up to date on this document. Alwaysverify current medications with the patient. No known medications Active Problems Problem Noted Date Diagnosed Date Multinodular goiter 06/17/2021 Thyroid nodule 06/16/2021 Non-toxic multinodular goiter 06/26/2019 Overview (06/17/2021): Last Assessment & Plan: History of multiple right thyroid nodules diagnosed 07/07/2019 Status post right superior and right inferior thyroid nodule FNA biopsy with benign cytology Performed a follow-up thyroid ultrasound in office today Noted overall size stable multiple right thyroid nodules. No compressive symptoms Last TSH within normal limits Follow-up in 1 year Family History Medical History Relation Name Comments Thyroid Disease Neg Hx Social History Tobacco Use Types Packs/Day Years Used Date Smoking Tobacco: Never Smokeless Tobacco: Never Alcohol Use Standard Drinks/Week Comments Never 0 (1 standard drink = 0.6 oz pur e alcohol) Comments No Sex and Gender Information Value Date Recorded Sex Assigned at Not on file Legal Sex Female 4:09 PM CDT Gender Identity Not on file Sexual Orientation Not on file Last Filed Vital Signs Vital Sign Reading Time Taken Comments Blood Pressure 110/66 06/17/2021 3:48 PM CDT Pulse 70 06/17/2021 3:48 PM CDT Temperature 37.2 C (98.9 F) 06/17/2021 3:48 PM CDT Respiratory Rate 18 08/16/2017 4:17 PM CDT Oxygen Saturation 97% 06/17/2021 3:48 PM CDT Inhaled Oxygen Concentration - - Weight 83.5 kg (184 lb) 06/17/2021 3:48 PM CDT Height 160 cm (5' 3) 06/17/2021 3:48 PM CDT Body Mass Index 32.59 06/17/2021 3:48 PM CDT Plan of Treatment Health Maintenance Due Date Last Done Comments COLOGUARD (AGES 45-75) - COL ON CA SCREENING 1969 COLON MONITORING 1969 COLONOSCOPY - COLON CA SCREENING 1969 CT COLONOGRAPHY - COLON CA SCREENING 1969 Colorectal Cancer Screening 1969 FIT - COLON CA SCREENING 1969 FLEX SIG - COLON CA SCREENING 1969 LIPID TESTING 1969 MAMMOGRAM 1969 HIV SCREENING 1984 HEPATITIS C SCREENING 09/25/1987 DTAP/TDAP/TD VACCINES (1 - Tdap) 1988 HEPATITIS B VACCINE (1 of 3 - 19+ 3-dose series) 1988 PAP SMEAR 1990 PNEUMOCOCCAL VACCINE 50+ (1 of 1 - PCV) 09/30/2019 ZOSTER VACCINE (1 of 2) 09/30/2019 SCREENING FOR DIABETES 06/17/2021 COVID-19 VACCINE ( - 2023-2 5 season) 2023 DEPRESSION SCREENING 03/19/2024 INFLUENZA VACCINE (#1) 2024 HIB VACCINE Aged Out No longer eligi ble based on patient's age to complete this topic HPV VACCINE Aged Out No longer eligi ble based on patient's age to complete this topic MENINGOCOCCAL (Group B) VACC INE SHARED DECISION-MAKING Aged Out No longer eligibl e based on patient's age to complete this topic MENINGOCOCCAL GROUPS A/C/Y/W VACCINE Aged Out No longer eligible b ased on patient's age to complete this topic Insurance Care Teams Sheet Metal Foreman Relationship Specialty Start Date End Date Azar Sanches MD PCP - General 03/15/21
--- OUTSIDE RECORDS SUMMARY | 2024-10-06 18:27 | XMS_ITS | Data Portability ---
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 Patient will come back in a year unless there are new symptoms. [email or web address] Not available 11/07/2022 18:51:52 Plan of Treatment Reminders Order Date Submit Date Provider Last Modified By Organization Details Last Modified Time Details Appointments None recorded. Lab hormone panel, serum or plasma 2023 024 [facility] (Lab), [address] [place], [address], 4 04:44:40 prolactin, serum 2023 024 [facility] (Lab), [address] [place], [address], 4 04:44:39 hCG, qualitativ e, serum 2023 024 [facility] (Lab), [address], [place], [address], 4 04:44:40 HbA1c (hemoglobi n A1c), blood 2021 022 [email or web address] [facility] (Lab), [address], [place], [address], 2 16:30:03 Referral None recorded. Procedures None recorded. Surgeries None recorded. Imaging MAMMO, screening, bilateral [email or web address] [facility], [address], [place], [address], 3 12:19:39 Medication Orders Vitamin D2 1,250 mcg (50,000 unit) capsule 2021 022 [facility], [address] [facility], [place], [address], 2 03:33:37 Patient TargetsNo targets recorded. Patient InstructionsNo instructions recorded. Reason for Referral None Reported. Results Created Date Observation Date Name Description Value Unit Range Abnormal Flag Note LastModifiedBy Organization Detail LastModifiedTime 11/08/1911/07/2021 IMAGE GUIDE D PAP AND HPV REGAR DLESS image guided Pap, HPV regardless of Pap result SEE RESULT S BELOW CASE REPOR T: Cytol ogy Gynec ologi sophie Repor t Case: [id number] Autho dirk g Provi carmella: Laura Walton MD Colle cted: 11/07 0830 Order ing Locat ion: [place] Patho logy Recei bea: 11/08 0226 First Scree n: Angelia Uribe Rescr een: Adrian alcantara, Uriel randall, CT Speci men: Scree blake Pap - Image d, Cervi x STATE MENT OF ADEQU ACY: Satis facto ry for evalu ation Trans forma tion zone compo nent absen t The absen ce of an endoc ervic al compo nent was confi rmed by an addit maira alcaraz. FINAL DIAGN OSIS: Negat bebeto for Intra epith elial Lesio n or Robert liu (NIL) . Elect mavis anderson fozia d by Adrian alcantara, Uriel randall, CT on 2021 at 8:42 PM ----- ----- ----- ----- ----- ----- ----- ----- ----- ----- ----- ----- ----- ----- ----- ----- ----- ---- HPV RESUL TS: HPV mRNA E6/E7 : No HPV mRNA Detec charline NOTE: This high risk HPV mRNA assay detec ts fourt een high- risk HPV types (16, 18, 31, 33, 35, 39, 45, 51, 52, 56, 58, 59, 66, 68) witho ut diffe renti ation . COMME NT: Note: This speci men was revie wed by a Cytot echno logis t and/o r Patho logis t (as indic ated in this repor t) after evalu ation using the Thinp rep Imagi ng Syste m. CLINI SOPHIE INFOR MATIO N: Menst rual Statu s: LMP (if appli cable ): Clini sophie Histo ry/Pr eviou s Pap: Type of Neopl babak (if appli cable ): Signi fican t Clini sophie Findi ngs: Other Histo ry: Hormo robin (if appli cable ): PAP EDUCA JUAN L NOTE: The Pap Test is a scree blake test with an inher ent false negat bebeto rate. Liqui d-bas ed sampl ing may decre ase, but will not elimi monica, false negat bebeto resul ts. A negat bebeto resul t does not precl ude the prese nce and/o r devel opmen t of disea se, since the prese nce of abnor mal cells in the sampl e depen ds on the locat ion of the lesio n and sampl ing techn ique. Collin nued regul ar scree blake is the best metho d of cance r preve ntion . If repor charline cytol ogic findi ng do not corre late with physi sophie and/o r histo rical findi ngs, fur er inves tigat ion is recom adriana d, as clini cheryl merritt nted. Not Available [facility] [id number], [place], [address], 11/11/2021 21:45:16 06/10/19 23 06/09/2022 CBC W/DIF F WBC 6.1 10'3/ uL 3.6-10 .2 Not Available [facility] (Lab) [address], [place], [address], 06/10/2022 06:12:50 06/10/19 23 06/09/2022 CBC W/DIF F RBC 4.23 10'6/ uL (based on docume nted legal sex) 4.10-5 .30 Not Available [facility] (Lab) [address], [place], [address], 06/10/2022 06:12:50 06/10/19 23 06/09/2022 CBC W/DIF F HGB 13.0 g/dL (based on docume nted legal sex) 11.9-1 5.8 Not Available [facility] (Lab) [address] [place], [address], 06/10/2022 06:12:50 06/10/19 23 06/09/2022 CBC W/DIF F HCT 41.1 % (based on docume nted legal sex) 37.4-4 8.3 Not Available [facility] (Lab) [address] [place], [address], 06/10/2022 06:12:50 06/10/19 23 06/09/2022 CBC W/DIF F MCV 97.2 fL 82.0-9 9.0 Not Available [facility] (Lab) [address] [place], [address], 06/10/2022 06:12:50 06/10/19 23 06/09/2022 CBC W/DIF F MCH 30.7 pg 27.0-3 3.0 Not Available [facility] (Lab) [address] [place], [address], 06/10/2022 06:12:50 06/10/19 23 06/09/2022 CBC W/DIF F MCHC 31.6 g/dL 32.0-3 6.0 low Not Available [facility] (Lab) [address] [facility], [place], [address], 06/10/2022 06:12:50 06/10/19 23 06/09/2022 CBC W/DIF F RDW 13.2 % 11.0-1 5.0 Not Available [facility] (Lab) [address] [facility], [place], [address], 06/10/2022 06:12:50 06/10/19 23 06/09/2022 CBC W/DIF F plt 316 10'3/ uL 150-45 0 Not Available [facility] (Lab) [address] [facility], [place], [address], 06/10/2022 06:12:50 06/10/19 23 06/09/2022 CBC W/DIF F MPV 10.5 fL 9.8-12 .7 Not Available [facility] (Lab) [address] [facility], [place], [address], 06/10/2022 06:12:50 06/10/19 23 06/09/2022 CBC W/DIF F NRBC's 0.0 % 0 Not Available [facility] (Lab) [address] [facility], [place], [address], 06/10/2022 06:12:50 06/10/19 23 06/09/2022 CBC W/DIF F absolute NRBCs 0.0 10'3/ uL 0 Not Available [facility] (Lab) [address] [facility], [place], [address], 06/10/2022 06:12:50 06/10/19 23 06/09/2022 CBC W/DIF F neutrophils 53.5 % 37.0-7 2.0 Not Available [facility] (Lab) [address] [place], [address], 06/10/2022 06:12:50 06/10/19 23 06/09/2022 CBC W/DIF F lymphocytes 39.1 % 16.0-4 8.0 Not Available [facility] (Lab) [address] [facility], [place], [address], 06/10/2022 06:12:50 06/10/19 23 06/09/2022 CBC W/DIF F monocytes 6.2 % 4.0-14 .0 Not Available [facility] (Lab) [address] [facility], [place], [address], 06/10/2022 06:12:50 06/10/19 23 06/09/2022 CBC W/DIF F eosinophils 0.5 % 0.0-9. 0 Not Available [facility] (Lab) [address] [place], [address], 06/10/2022 06:12:50 06/10/19 23 06/09/2022 CBC W/DIF F basophils 0.5 % 0.0-2. 0 Not Available [facility] (Lab) [address] [place], [address], 06/10/2022 06:12:50 06/10/19 23 06/09/2022 CBC W/DIF F immature granulocytes 0.2 % no define d refere nce range Not Available [facility] (Lab) [address] [place], [address], 06/10/2022 06:12:50 06/10/19 23 06/09/2022 CBC W/DIF F absolute neutrophils 3.3 10'3/ uL 1.1-6. 0 Not Available [facility] (Lab) [address] [place], [address], 06/10/2022 06:12:50 06/10/19 23 06/09/2022 CBC W/DIF F absolute lymphocytes 2.4 10'3/ uL 0.7-3. 4 Not Available [facility] (Lab) [address] [facility], [place], [address], 06/10/2022 06:12:50 06/10/19 23 06/09/2022 CBC W/DIF F absolute monocytes 0.4 10'3/ uL 0.3-1. 0 Not Available [facility] (Lab) [address] [facility], [place], [address], 06/10/2022 06:12:50 06/10/19 23 06/09/2022 CBC W/DIF F absolute eosinophils 0.0 10'3/ uL 0.0-0. 6 Not Available [facility] (Lab) [address] [facility], [place], [address], 06/10/2022 06:12:50 06/10/19 23 06/09/2022 CBC W/DIF F absolute basophils 0.0 10'3/ uL 0.0-0. 1 Not Available [facility] (Lab) [address] [facility], [place], [address], 06/10/2022 06:12:50 06/10/19 23 06/09/2022 CBC W/DIF F absolute immature granulocytes 0.0 10'3/ uL 0.00-0 .10 2022 3:42 AM: P indic ates parti al resul ts on a panel have been relea sed. Addit ional resul ts will follo w. 2022 3:42 AM: This resul t has been final verif ied. No addit ional or nava ed resul ts are expec charline. Not Available [facility] (Lab) [address] [facility], [place], [address], 06/10/2022 06:12:50 06/10/19 23 06/09/2022 HEMOG LOBIN A1C hemoglobin A1C 5.4 % 0-5.6 The Ameri can [employer] i[employer] n recom mends that a prima ry goal of thera jade rollins d be a HBA1C of < 7% and that physi cians shoul d reeva luate the treat ment regim en in patie nts with HBA1C value s consi stent ly > 8%. <5.7% Tiesha l 5.7 - 6.4% Incre ased risk for diabe malik >=6.5 % Diagn ostic of diabe malik <7.0% Goal of thera py >8.0% Actio n sugge sted Not Available [facility] (Lab) [address] [place], [address], 06/10/2022 06:12:51 06/10/19 23 06/09/2022 LIPID PANEL ,AMA (LDL- CALC) total cholesterol 175 mg/dL 0-199 Not Available [facility] (Lab) [address] [place], [address], 06/10/2022 06:12:51 06/10/1906/09/2022 LIPID PANEL ,AMA (LDL- CALC) triglyceride s 81 mg/dL 0.00-1 50.00 NCEP Refer ence Value s for Trigl yceri moises: Tiesha l: <150 mg/dL Borde rline High: 150 - 199 mg/dL High: 200 - 499 mg/dL Very High: >/= 500 mg/dL Not Available [facility] (Lab) [address] [place], [address], 06/10/2022 06:12:51 06/10/1906/09/2022 LIPID PANEL ,AMA (LDL- CALC) HDL cholesterol 56 mg/dL >40 Not Available [facility] (Lab) [address] [place], [address], 06/10/2022 06:12:51 06/10/1906/09/2022 LIPID PANEL ,AMA (LDL- CALC) LDL cholesterol 103 mg/dL 0-99 high Cutof f value s recom adriana d by the Natio nal Alyssa stero l Educa tion Progr am: JAI ABLE: Alyssa stero l <200 mg/dL LDL <100 mg/dL BORDE RLINE : Alyssa stero l 200-2 39 mg/dL LDL 101-1 59 mg/dL HIGHE R RISK: Alyssa stero l >240 mg/dL LDL >160 mg/dL , HDL <40 mg/dL Not Available [facility] (Lab) [address] [place], [address], 06/10/2022 06:12:51 06/10/19 23 06/09/2022 LIPID PANEL ,AMA (LDL- CALC) non-HDL cholesterol 119 mg/dL no refere nce range A reaso nable goal for non-H DL alyssa stero l is one that is 30 mg/dL highe r than the LDL alyssa stero l goal. Not Available [facility] (Lab) [address] [place], [address], 06/10/2022 06:12:51 06/10/19 23 06/09/2022 LIPID PANEL ,AMA (LDL- CALC) chol/HDL ratio 3.1 . 0.0-5. 0 Not Available [facility] (Lab) [address] [place], [address], 06/10/2022 06:12:51 06/10/19 23 06/09/2022 CMP(C OMPRE HENSI VE METAB OLIC PANEL ) sodium 140 mmol/ L 133-14 6 Not Available [facility] (Lab) [address] [place], [address], 06/10/2022 06:12:52 06/10/19 23 06/09/2022 CMP(C OMPRE HENSI VE METAB OLIC PANEL ) potassium 4.3 mmol/ L 3.5-5. 1 Not Available [facility] (Lab) [address] [place], [address], 06/10/2022 06:12:52 06/10/19 23 06/09/2022 CMP(C OMPRE HENSI VE METAB OLIC PANEL ) chloride 108 mmol/ L 98-107 high Not Available [facility] (Lab) [address] [place], [address], 06/10/2022 06:12:52 06/10/19 23 06/09/2022 CMP(C OMPRE HENSI VE METAB OLIC PANEL ) carbon dioxide 25 mmol/ L 21-31 Not Available [facility] (Lab) [address] [facility], [place], [address], 06/10/2022 06:12:52 06/10/19 23 06/09/2022 CMP(C OMPRE HENSI VE METAB OLIC PANEL ) anion gap 7 mmol/ L 4-13 Not Available [facility] (Lab) [address] [facility], [place], [address], 06/10/2022 06:12:52 06/10/19 23 06/09/2022 CMP(C OMPRE HENSI VE METAB OLIC PANEL ) blood urea nitrogen 18 mg/dL 7-25 Not Available [facility] (Lab) [address] [facility], [place], [address], 06/10/2022 06:12:52 06/10/19 23 06/09/2022 CMP(C OMPRE HENSI VE METAB OLIC PANEL ) creatinine 0.86 mg/dL 0.60-1 .30 Not Available [facility] (Lab) [address] [facility], [place], [address], 06/10/2022 06:12:52 06/10/19 23 06/09/2022 CMP(C OMPRE HENSI VE METAB OLIC PANEL ) egfrcr (CKD-epi 2020) 81 mL/mi n/1.7 3_m2 >=60 Not Available [facility] (Lab) [address] [facility], [place], [address], 06/10/2022 06:12:52 06/10/19 23 06/09/2022 CMP(C OMPRE HENSI VE METAB OLIC PANEL ) calcium 10.2 mg/dL 8.3-10 .5 Not Available [facility] (Lab) [address] [facility], [place], [address], 06/10/2022 06:12:52 06/10/19 23 06/09/2022 CMP(C OMPRE HENSI VE METAB OLIC PANEL ) glucose 89 mg/dL 70-100 Not Available [facility] (Lab) [address] [facility], [place], [address], 06/10/2022 06:12:52 06/10/19 23 06/09/2022 CMP(C OMPRE HENSI VE METAB OLIC PANEL ) protein, total 6.8 g/dL 6.4-8. 3 Not Available [facility] (Lab) [address] [facility], [place], [address], 06/10/2022 06:12:52 06/10/19 23 06/09/2022 CMP(C OMPRE HENSI VE METAB OLIC PANEL ) albumin 4.0 g/dL 3.5-5. 0 Not Available [facility] (Lab) [address] [place], [address], 06/10/2022 06:12:52 06/10/19 23 06/09/2022 CMP(C OMPRE HENSI VE METAB OLIC PANEL ) ALT 8 units /L 9-43 low Not Available [facility] (Lab) [address] [place], [address], 06/10/2022 06:12:52 06/10/19 23 06/09/2022 CMP(C OMPRE HENSI VE METAB OLIC PANEL ) alkaline phosphatase 48 units /L 34-104 Not Available [facility] (Lab) [address] [place], [address], 06/10/2022 06:12:52 06/10/19 23 06/09/2022 CMP(C OMPRE HENSI VE METAB OLIC PANEL ) AST 11 units /L 13-39 low Not Available [facility] (Lab) [address] [place], [address], 06/10/2022 06:12:52 06/10/19 23 06/09/2022 CMP(C OMPRE HENSI VE METAB OLIC PANEL ) bilirubin, total 0.5 mg/dL 0.2-1. 2 Not Available [facility] (Lab) [address] [facility], [place], [address], 06/10/2022 06:12:52 06/10/19 23 06/09/2022 TSH, REFLE X FREE T4 TSH 1.64 uIU/m L 0.30-5 .33 Not Available [facility] (Lab) [address] [facility], [place], [address], 06/10/2022 06:12:52 06/10/19 23 06/09/2022 VITAM IN D, 25-OH (TOTA L D2/D3 ) vitamin D, 25-hydroxy, total 20.5 NG/mL 30.0-1 00.0 low Sugge stive of Defic iency : <20 ng/mL Sugge stive of Insuf ficie ncy: 20-29 ng/mL Sugge stive of Suffi cienc y: 30-10 0 ng/mL Sugge stive of Toxic ity: >150 ng/mL Not Available [facility] (Lab) [address] [facility], [place], [address], 06/10/2022 06:12:53 11/09/19 23 11/08/2022 IMAGE GUIDE D PAP AND HPV REGAR DLESS image guided Pap, HPV regardless of Pap result SEE RESULT S BELOW CASE REPOR T: Cytol ogy Gynec ologi sophie Repor t Case: [id number] Autho dirk g Provi carmella: Juvenal Calabrese Colle cted: 11/08 1016 TELEPHONER Order ing Locat ion: [place] Patho logy Recei bea: 11/09 0703 First Scree n: Haydee Hewitt, CT Rescr een: Tulio love, Joanie, CT Speci men: Scree blake Pap - Image d, Cervi x STATE MENT OF ADEQU ACY: Satis facto ry for evalu ation Trans forma tion zone compo nent absen t The absen ce of an endoc ervic al compo nent was confi rmed by an addit ional tulio ner. FINAL DIAGN OSIS: Negat bebeto for Intra epith elial Lesio lily or Robert liu (NIL) . Elect abberobert marcelo d by Joanie Paredes, CT on 2022 at 3:53 PM ----- ----- ----- ----- ----- ----- ----- ----- ----- ----- ----- ----- ----- ----- ----- ----- ----- ---- HPV RESUL TS: HPV mRNA E6/E7 : No HPV mRNA Detec charline NOTE: This high risk HPV mRNA assay detec ts fourt een high- risk HPV types (16, 18, 31, 33, 35, 39, 45, 51, 52, 56, 58, 59, 66, 68) witho ut diffe renti ation . COMME NT: This speci men was revie wed by a Cytot echno logis t and/o r Patho logis t (as indic ated in this repor t) after evalu ation using the Thinp rep Imagi ng Syste m. CLINI SOPHIE INFOR MATIO N: Menst rual Statu s: LMP (if appli cable ): Clini sophie Histo ry/Pr eviou s Pap: Type of Neopl babak (if appli cable ): Signi fican t Clini sophie Findi ngs: Other Histo ry: Hormo robin (if appli cable ): PAP EDUCA JUAN L NOTE: The Pap Test is a scree blake test with an inher ent false negat bebeto rate. Liqui d-bas ed sampl ing may decre ase, but will not elimi monica, false negat bebeto resul ts. A negat bebeto resul t does not precl ude the prese nce and/o r devel opmen t of disea se, since the prese nce of abnor mal cells in the sampl e depen ds on the locat ion of the lesio n and sampl ing techn ique. Collin nued regul ar scree blake is the best metho d of cance r preve ntion . If repor charline cytol ogic findi ng do not corre late with physi sophie and/o r histo rical findi ngs, furbella er inves tigbhavana ion is recom adriana d, as clini cheryl merritt nted. Not Available [facility] (Lab) [address] [facility], [place], [address], 11/09/2022 16:56:01 04/19/19 24 04/19/2023 PROLA CTIN prolactin, total 13.00 NG/mL 4.79-2 3.30 This assay was perfo rmed using [employer] ratio n reage nts and test kits. Value s obtai brittani with other assay metho ds or kits canno t be used inter nava eably . Not Available [facility] (Lab) [address] [facility], [place], [address], 04/20/2023 04:44:39 04/19/19 24 04/19/2023 FSH, LH, ESTRA DIOL estradiol 166.0 pg/mL This assay was perfo rmed using [employer] ratio n reage nts and test kits. Value s obtai brittani with other assay metho ds or kits canno t be used inter nava eably . Femal e Estra diol Range s: Folli cular phase 12.4- 233 pg/mL Ovula tion phase 41.0- 398 pg/mL Lutea l phase 22.3- 341 pg/mL Postm enopa usal< 5-138 pg/mL Healt hy Pregn ant Women 1st Trime ster1 54-32 43 pg/mL 2nd Trime ster1 561-2 1280 pg/mL 3rd Trime ster8 525-> 53933 pg/mL Not Available [facility] (Lab) [address] [place], [address], 04/20/2023 04:44:40 04/19/19 24 04/19/2023 FSH, LH, ESTRA DIOL FSH 10.1 mIU/m L This assay was perfo rmed using [employer] ratio n reage nts and test kits. Value s obtai brittani with other assay metho ds or kits canno t be used inter [facility] juan manuel . Femal es Folli cular : 3.5-1 2.5 mIU/m L Ovula tion: 4.7-2 1.5 mIU/m L Lutea l: 1.7-7 .7 mIU/m L Postm enopa use: 25.8- 134.8 mIU/m L Not Available [facility] (Lab) [address] [facility], [place], [address], 04/20/2023 04:44:40 04/19/19 24 04/19/2023 FSH, LH, ESTRA DIOL LH 6.7 mIU/m L This assay was perfo rmed using [employer] ratio n reage nts and test kits. Value s obtai brittani with other assay metho ds or kits canno t be used inter [facility] . Femal es Mid-F ollic ular: 2.4-1 2.6 mIU/m L Mid-C ycle: 14.0- 95.6 mIU/m L Mid-L uteal : 1.0-1 1.4 mIU/m L Postm enopa use: 7.7-5 8.5 mIU/m L Not Available [facility] (Lab) [address], [place], [address], 04/20/2023 04:44:40 04/19/19 24 04/19/2023 HCG(H UMAN CHORI ONIC GONAD OTROP IN), QUALI TATIV E SERUM bhcg, qualitative, blood Negati ve negati ve Not Available [facility] (Lab) [address] [facility], [place], [address], 04/20/2023 04:44:40 Result Notes None recorded. Problems Name Problem SNOMED Code Status Onset Date Resolution Date Notes Provider Name and Address Organization Details Recorded Time Finding of contents of cervix 891982399 Completed 201510/16/2020 Weeks of gestation of not specified ;Recorded Elsewhere : No Locati on: [facility] So urce: EHR Chron ic: N Practic e ID: [id number] Bill able Time: 05:30:[address] [facility] 11:06:20 Finding related to pregnanc y Completed 201510/16/2020 Inapprop chg quantitav hCG in early ;Recorded Elsewhere : No Locati on: [facility] So urce: EHR Chron ic: N Practic e ID: [id number] Bill able Time: 09:15:[address] [facility] 11:06:29 Threaten ed miscarri age [id number] Completed 201610/16/2020 Threatene d ; Practice ID: [id number] [facility] 11:06:[address] Concept Completed 201610/16/2020 Encntr for customer experience consultant exam (general) (routine) w/o abn findings; Recorded Elsewhere : No Locati on: [facility] So urce: EHR Chron ic: N Practic e ID: [id number] Bill able Time: 03:00:[address] [facility] 11:06:45 Gestatio n less than 9 weeks [id number] Completed 201610/16/2020 Less than 8 weeks gestation of ;Practice ID: [address] [facility] 11:06:31 Missed miscarri age [id number] Completed 201610/16/2020 Missed ; Practice ID: [address] [facility] 11:06:38 Finding of regulari ty of menstrua l cycle Completed 201610/16/2020 Irregular menstruat ion, unspecifi ed;Practi ce ID: [address] [facility] 11:06:24 Pregnanc y test negative [id number] Completed 201610/16/2020 Encounter for test, result negative; [id number] 11:06:[address] Concept Completed 201610/16/2020 Encntr for general adult medical exam w/o abnormal findings; Recorded Elsewhere : No Locati on: [facility] So urce: EHR Chron ic: N Practic e ID: [id number] Bill able Time: 10:30:00 AM [facility] 11:06:43 Insertio n of intraute rine contrace ptive device Completed 201710/16/2020 Encounter for initial prescript ion of uterin contracep dev;Pract ice ID: [address] [facility] 11:06:35 Finding of sensatio n of breast Completed 201710/16/2020 Mastodyni a;Practic e ID: 0001 Jerrisandor Rockwell [facility] 11:06:27 Bleeding [id number] Completed 201710/16/2020 Abnormal uterine and vaginal bleeding, unspecifi ed;Practi ce ID: 0001 Jerrisandor Rockwell [facility] 11:06:18 Finding of general energy [id number] Completed 201710/16/2020 Other fatigue;P ractice ID: 0001 Jerri Rockwell [facility] 11:06:22 Abnormal weight gain [id number] Completed 201710/16/2020 Abnormal weight gain;Prac alan ID: 0001 Jerrisandor Rockwell [facility] 11:06:16 Problem Notes None recorded. Procedures Surgical History Date Name Laterality Status Provider Name and Address Organization Details Recorded Time 022 Date of Last Pap Smear completed Angella Aristides [facility] 11/07/2022 18:52:27 021 Endometrial Biopsy completed Anthony Walton MD [address], [place], [id number], [facility] 12/04/2020 12:53:38 020 completed [facility] 10/19/2021 18:19:57 020 Date of Last Colonoscopy completed [facility] 10/19/2021 18:19:57 020 Date of Last Mammogram completed [facility] 10/16/2020 11:25:50 020 hemorrhoidectomy completed [facility] 10/16/2020 11:27:12 section completed [facility] 10/16/2020 11:26:36 section completed [facility] 10/16/2020 11:26:37 section completed [facility] 10/16/2020 11:26:38 section completed [facility] 10/16/2020 11:26:38 Cholecystectomy completed [facility] 10/19/2021 18:20:05 Imaging Results None recorded. Procedure Notes None recorded. Medical Equipment None Reported. Allergies No known drug allergies Medications Name Sig Start Date Stop Date Status Note LastModified by Organization Details LastModified Time Loestrin Fe 04/07 (28-Day) 1 mg-20 mcg (21)/75 mg (7) tablet take 1 tablet by oral route every day 10/16 completed Prescrib ed Elsewher e: No Locat ion: Julio [facility] By: wmhtate guzman DateTime : 05/15/19 18 04:35:04 PM Not Available Not Available Not Available hydroxyzi ne pamoate 50 mg capsule TAKE 1 CAPSULE BY MOUTH EVERY DAY AT BEDTIME NEEDED 10/19 completed Not Available Not Available Not Available buspirone 10 mg tablet TAKE 1 TABLET BY MOUTH TWICE DAILY 10/19 completed Not Available Not Available Not Available ergocalci ferol (vitamin D2) 1,250 mcg (50,000 unit) capsule TAKE 1 CAPSULE BY MOUTH ONCE A WEEK active Not Available Not Available No t Available DUST BOX WORKER-PNV-DH A 28 mg iron-1 mg-200 mg capsule take 1 capsule by oral route every day 10/16 completed Prescrib ed Daniel e: No Locat ion: [facility]ify By: bharat guzman DateTime : 11/29/19 16 09:45:00 AM Not Available Not Available Not Available Vitals Date Recorded Body height Body mass index (BMI) Body weight Systolic And Diastolic Provider Name and Address Organization Details Last Updated DateTime 04/18/2023 160.02 cm 33.5 kg/m2 46091.96 g 144/87 mm[Hg] [facility] 04/18/2023 18:19:40 Date Recorded Body height Body mass index (BMI) Body weight Systolic And Diastolic Provider Name and Address Organization Details Last Updated DateTime 11/07/2022 160.02 cm 35.3 kg/m2 18296.88 g 122/77 mm[Hg] Angella Irving [facility] 11/07/2022 18:52:05 Date Recorded Body height Body mass index (BMI) Body weight Systolic And Diastolic Provider Name and Address Organization Details Last Updated DateTime 11/15/2021 160.02 cm 32.9 kg/m2 09654.18 g 130/79 mm[Hg] [facility] 11/15/2021 17:51:55 Date Recorded Body height Body mass index (BMI) Body weight Systolic And Diastolic Provider Name and Address Organization Details Last Updated DateTime 12/13/2021 160.02 cm 33.5 kg/m2 84028.96 g 125/70 mm[Hg] Jerri Rockwell [facility] 12/13/2021 17:55:41 Social History Question Answer Notes LastModified by Organizat ion Details LastModified Time Tobacco Smoking Status Never Smoker Jerri vazquez [facility] 10/19/2021 18:20:01 Do You Have An Advance Directive? No Information n ot available 10/19/2021 How Many Years Have You Consumed Alcohol? 0 Information not available 10/19/2021 Are You Blind Or Do You Have Difficulty Seeing? No Information n ot available 10/19/2021 What Is Your Level Of Caffeine Consumption? Heavy Information not available 10/19/2021 How Much Tobacco Do You Chew? None Information not available 10/19/2021 In The 14 Days Before Symptom Onset, Have You Had Close Contact With A Laboratory-confirm ed COVID-19 While That Case Was Ill? No Information n ot available 10/19/2021 In The 14 Days Before Symptom Onset, Have You Had Close Contact With A Person Who Is Under Investigation For COVID-19 While That Person Was Ill? No Information not available 10/19/2021 Have You Been To An Area Known To Be High Risk For COVID-19? No Information not available 10/19/2021 Are You Deaf Or Do You Have Serious Difficulty Hearing? No Information not available 10/19/2021 What Type Of Diet Are You Following? REGULAR Information n ot available 10/19/2021 What Is The Highest Grade Or Level Of School You Have Completed Or The Highest Degree You Have Received? [id number] Information not available 10/19/2021 Are There Any Guns Present In Your Home? No Information not available 10/19/2021 Do You Use Protection During Sex? No Information not available 10/19/2021 Do You Use Your Seat Belt Or Car Seat Routinely? Yes Information not available 10/19/2021 Do You Have Smoke And Carbon Monoxide Detectors In Your Home? Yes Information not available 10/19/2021 At What Age Did You Start Smoking Tobacco? 0 Information not available 10/19/2021 How Much Tobacco Do You Smoke? No Information not available 10/19/2021 Do You Use Sunscreen Routinely? No Information not available 10/19/2021 How Many Years Have You Smoked Tobacco? 0 Information not available 10/19/2021 Have You Used IV Drugs? No Information not available 10/19/2021 Sex: Unknown Functional Status Question Answer Note LastModified by Organizat ion Details LastModified Time Do you use any illicit or recreational drugs? No Information not available 10/19/2021 What is your level of alcohol consumption? None Information not available 10/19/2021 Are you able to walk? 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 None Information not available 10/19/2021 Mental Status Question Answer Note LastModified by Organization D etails LastModified Time Do you feel stressed (tense, restless, nervous, or anxious, or unable to sleep at night)? [id number] Information not available 10/19/2021 Family History Relationship Description Onset Age of this Age Resolved Age Notes LastModified by Organization Details LastModified Time Father Hyperlipidem ia Not available 2021 18:18:55 Father Carcinoma of prostate [email or web address] Not available 2021 18:18:55 Mother Malignant tumor of colon Not available 2020 11:26:19 Medical History No medical history recorded. Gynecological History Statement/Question Response Abnormal Pap N Date of Last Mammogram 03/19/2019 On BCP's at Conception? N Y Was last menstrual period normal Y STIs/STDs N HPV Vaccine N Current Control Method None Age at First Child 20 If Post Menopausal, Age at Menopause 51 Are cycles usually normal Y Date of Last Colonoscopy 08/18/2019 Sexually Active? Y Menses Monthly N Age of first menstrual cycle 13 Date of Last Pap Smear 11/07/2021 Sexual Problems? N Desired Control Method None LMP Unknown 08/18/2019 N Obstetrics History GPAL:G 4 P 4 0 0 4 Type Value Full Term 4 Living 4 Total 4 Past Encounters Encounter ID Performer Location Encounter Start Date Encounter Closed Date Diagnosis/Indication Diagnosis SNOMED-CT Code Diagnosis ICD10 Code Diagnosis Note [id number] MD Sol Galicia [address],[place] [address] 10/16/2020 10:47:01 10/16/2020 11:52:21 Abnormal uterine bleeding 1636967117 9100 N93.9 Gynecologi c examination 98928294 Z01.419 This patient is here for her annual exam. A thorough history was taken. A physical exam was performed. Age appropriat e routine health screening was ordered, performed, and discussed. Recommende d testing was ordered. She was asked to follow up in one year. She will be informed of any test results. Mammogram - [ ordered ] Colonoscop y - [ done] Bone Density - [ not applicable ] Cholestero l - [ordered ] Pap - today [id number] MD Sol Galicia [address],[place] [address] 11/02/2020 08:58:21 11/02/2020 20:57:24 [id number] Anthony Walton MD [facility] [address],[place] [address] 12/04/2020 12:06:08 12/04/2020 15:22:51 Screening procedure 25336989 Z13.9 Abnormal u terine bleeding [id number] 9100 N93.9 endometria l biopsy was performed. She tolerated the procedure well. [id number] MD Sol Galicia [address],[place] [address] 10/19/2021 18:18:27 10/21/2021 16:07:48 [id number] MD Sol Galicia [address],[place] [address] 11/05/2021 09:50:08 11/05/2021 10:45:53 Gynecologic examination 97447046 Z01.419 Z11.51 This patient is here for her annual exam. A thorough history was taken. A physical exam was performed. Age appropriat e routine health screening was ordered, performed, and discussed. Recommende d testing was ordered. She was asked to follow up in one year. She will be informed of any test results. Mammogram - [ ordered ] Colonoscop y - [ done] Bone Density - [ not applicable ] Cholestero l - [ordered ] Pap - today [id number] Anthony Walton MD [place] [address] [address] 11/15/2021 16:31:36 11/16/2021 14:30:46 Vitamin D deficiency 28859607 E55.9 Obesity 447814485 E66.9 this patient is a 51-year-ol d female with class 1 obesity. We took a very thorough history. We talked about some of her goals. Talked about some of her challenges . We talked about some of her previous efforts in weight loss and her activity level. We talked about limitation s for activity. Talked about energy consumptio n energy expenditur e. She was given recommenda tions and some of these areas. We talked about the importance of resistance training and cardiovasc ular exercise. We talked about her medical history in its relationsh ip to excess body weight. We talked about treatment options. We talked about the evaluation that is appropriat e for beginning weight management . We talked about her diet and our dietitian. We agreed to a dietitian consult. We agreed to a sleep study. We agreed to metabolic testing. We performed body compositio n testing today. We reviewed those results and talked about their significan ce. We spent over 1 hour together. More than 50% was counseling . We agreed to come together in 2 weeks and initiate treatment. We discussed treatment today. Patient does not want medication . I described all the medication s to with her benefits. She is going to continue 'Optiv[employer] I believe is what is called. She went to see the dietitian. We are going to repeat labs after vitamin-D supplement ation. She is willing to get a sleep study. She wants resting energy expenditur e testing. [id number] Anthony Walton MD [place] [address] [address] 11/23/2021 14:33:09 11/24/2021 14:40:46 [id number] Anthony Walton MD [place] [address] [address] 12/13/2021 17:35:33 12/14/2021 15:10:48 Obesity 909326062 E66.9 this patient is a 51-year-ol d female who presents for follow-up on weight management . She has resisted starting medication s. She repeated that sentiment today. She plans to meet with the dietitian. She has been changing her diet. She has increased her activity. She has stabilized her weight. She has not lost weight yet. We spent 20 minutes face-to-fa ce. More than 50% was counseling . We agreed to follow-up in 1 month. [id number] Maria Ines Chávez [facility] [address] [address] 11/07/2022 18:43:46 11/08/2022 16:33:35 Gynecologic examination [id number] Z01.419 Take Calcium with Vitamin D 12-1500mg daily. Do monthly self breast exams. It is advised to get annual flu shot in the fall and she could obtain at [facility] or [facility] care clinic. If you haven't received the Tdap vaccine in the last 10 years you should obtain one as well. Have mammogram yearly, bone density every 2-3 years and colonoscop y every 5-10 years depending on findings and history. Engage in daily exercise of low impact aerobic exercise 45-60 minutes 4-5 times weekly. Avoid tobacco and illicit drugs as well as using moderation with alcohol intake less than 1-2 8 oz beverages daily. This lifestyle behavior pattern will lead to less health conditions and longer life span. If BMI greater than 25 weight watchers or dietary consult advised. Questions have been answered. Patient appears to understand instructio ns, but if you have any further questions call or respond to this email Pap/hpv sent (opts to send)STD Screen declinedGe netic Screen discussedC olon Screen UTDPCPDexa Screen PCPRoutine Labs PCP Screening mammography 24 169213 Z12.31 [id number] Anthony Walton MD [place] [address] [address] 04/18/2023 18:11:07 04/19/2023 09:58:11 Postmenopausal bleeding 54022847 N95.0 52-year-ol d female with an episode of bleeding that seemed like a menses. She also had breast tenderness . She also had leakage from her breasts. It was a clear fluid. She has not had a period in 2 years. we discussed these findings and symptoms. It sounds as if she is ovulated in had a menses. This is unusual. We need to rule out an endometria l cancer of course. We are also going to check her sex hormones in prolactin. We spent over 20 minutes face-to-fa ce. More than 50% was counseling . She will follow-up for pelvic ultrasound and endometria l biopsy. Health Concerns Section Related Observation LastModified by Organization Detai ls LastModified Time None Recorded Concern Status LastModified by Organization Details LastModified Time None Recorded Advance Directives Directive N: Payers Insurance Date Sequence Insurance Name Policy Number Policy Lamb Covered Member ID Lamb Member ID Guarantor Name 10/19/2021 1 [facility] [id number] Lurdes Strong [id number] Lurdes Strong 08/08/2023 1 [facility] Lurdes Strong [id number] Lurdes Strong 10/17/2022 PAYMENT PLAN Lurdes Strong Notes Date Note Type Note Provider Name and Address Organization Details Recorded Time 11/15/2021 text/html This patient is a 51-year-old female who presents for weight management. She reports hip and knee pain. She has low energy and little exercise tolerance. She has had a weight control issues since she has been in adults. She does not report any life events that resulted in weight gain. She does not report any previous weight management programs. She has never used any medications. She offered little nutritional background. She does not report night eating or Binge eating behavior. She gets emptied night but does not appear to have night eating syndrome. She denies any food triggers. She does not exercise. She reports some symptoms of sleep apnea such as snoring and fatigue. She occasionally naps. Past medical history-headachepa st surgical history- x4, cholecystectomy.Me dications-nonesoci al history-unremarkab lefamily history -reports a mother with diabetes, history of thyroid problems in the family,gynecologic history-unremarkab liberty- denies any depression symptoms. Anthony Walton MD [address], [place], [address], [facility] 11/15/2021 19:52:37 12/13/2021 text/html this patient is a 51-year-old female who presents for follow-up on weight management. She has resisted starting medications. She repeated that sentiment today. She plans to meet with the dietitian. She has been changing her diet. She has increased her activity. She has stabilized her weight. She has not lost weight yet. We spent 20 minutes [id number]. More than 50% was counseling. We agreed to follow-up in 1 month. Anthony Walton MD [address], [place], [address], [facility] 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 Post-MenopausalRep orted bypatient.Menopaus al Symptoms:no menopausal symptoms; normal vaginal lubrication Vaginal Bleeding:history of menopause having occurred; no history of post menopausal bleeding Urinary Symptoms:no hematuria; no incontinence; no nocturia; no urinary frequency Vulva:no genital lesion; no vulvar atrophy Vagina:normal vaginal discharge; no vaginal atrophy Breast:no breast lump; no nipple discharge; no breast pain Sexual Complaints:no sexual complaints Psychological Symptoms:no depression; no anxiety Preventive Measures:encourage regular mammograms starting age 40; encourage self breast examination; encourage regular exercise; encourage no tobacco use; needs to schedule mammogram; history of recent colonoscopy Maria Ines Chávez CHANI- [address], [place], [address], [facility] 11/07/2022 19:08:41 04/18/2023 text/html 52-year-old fema le with an episode of bleeding that seemed like a menses. She also had breast tenderness. She also had leakage from her breasts. It was a clear fluid. She has not had a period in 2 years. we discussed these findings and symptoms. It sounds as if she is ovulated in had a menses. This is unusual. We need to rule out an endometrial cancer of course. We are also going to check her sex hormones in prolactin. We spent over 20 minutes [id number]. More than 50% was counseling. She will follow-up for pelvic ultrasound and endometrial biopsy. Anthony Walton MD [address], [place], [address], [facility] 04/18/2023 18:51:13 OBGyn Episode Ob Episode Information Episode Created Date Number of Fetuses Patient Bloodtype Patient rh Status Prepregnancy Weight lbs Domestic Partner Domestic Partner Phone Father Name Dot Compliance Manager Status 10/17/19 21 1 CLOSED Fetus Data First Name Last Name Admitted to NICU Weight (g) Sex Living Outcome Pediatric Complications Fetus ID Race Codes Race Delivery Type 3656.85 [phone] Repeat Winston Calculation Initial Winston Date Initial Exam Date Initial Exam Provider Initial Ultrasound Date Last Menstrual Period Date Ultra Sound Weeks Gestation 0 Eighteen To Twenty Week Winston Update Ultra Sound Date Fundal Height At Umbil Quickening Date Ultra Sound Latest Weeks Gestation Final Winston Confirmed By Final Winston Confirmed Date Final Winston Date Ultra Sound Latest Days Gestation 0 0 Menstrual History Last Menstrual Date Menses Monthly On Bcp Conception Prior Menses Frequency Hcg Plus Date Menarche Onset Age Delivery Information Delivery Date Delivery Type Labor Anesthesia Weeks Gestation Incision Type Labor Labor Length Hrs Delivered By Post Complications Tubal Sterilization Discharge Date Comments 9 Discharge Information Feeding Method Contraceptive Method Maternal HG B and HCT Levels Ob Episode Information Episode Created Date Number of Fetuses Patient Bloodtype Patient rh Status Prepregnancy Weight lbs Domestic Partner Domestic Partner Phone Father Name Dot Compliance Manager Status 10/17/19 21 1 CLOSED Fetus Data First Name Last Name Admitted to NICU Weight (g) Sex Living Outcome Pediatric Complications Fetus ID Race Codes Race Delivery Type 3770.25 [id number] Repeat Winston Calculation Initial Winston Date Initial Exam Date Initial Exam Provider Initial Ultrasound Date Last Menstrual Period Date Ultra Sound Weeks Gestation 0 Eighteen To Twenty Week Winston Update Ultra Sound Date Fundal Height At Umbil Quickening Date Ultra Sound Latest Weeks Gestation Final Winston Confirmed By Final Winston Confirmed Date Final Winston Date Ultra Sound Latest Days Gestation 0 0 Menstrual History Last Menstrual Date Menses Monthly On Bcp Conception Prior Menses Frequency Hcg Plus Date Menarche Onset Age Delivery Information Delivery Date Delivery Type Labor Anesthesia Weeks Gestation Incision Type Labor Labor Length Hrs Delivered By Post Complications Tubal Sterilization Discharge Date Comments 8 Discharge Information Feeding Method Contraceptive Method Maternal HG B and HCT Levels Ob Episode Information Episode Created Date Number of Fetuses Patient Bloodtype Patient rh Status Prepregnancy Weight lbs Domestic Partner Domestic Partner Phone Father Name Dot Compliance Manager Status 10/17/19 21 1 CLOSED Fetus Data First Name Last Name Admitted to NICU Weight (g) Sex Living Outcome Pediatric Complications Fetus ID Race Codes Race Delivery Type 3912.23 1 [id number] Repeat Winston Calculation Initial Winston Date Initial Exam Date Initial Exam Provider Initial Ultrasound Date Last Menstrual Period Date Ultra Sound Weeks Gestation 0 Eighteen To Twenty Week Winston Update Ultra Sound Date Fundal Height At Umbil Quickening Date Ultra Sound Latest Weeks Gestation Final Winston Confirmed By Final Winston Confirmed Date Final Winston Date Ultra Sound Latest Days Gestation 0 0 Menstrual History Last Menstrual Date Menses Monthly On Bcp Conception Prior Menses Frequency Hcg Plus Date Menarche Onset Age Delivery Information Delivery Date Delivery Type Labor Anesthesia Weeks Gestation Incision Type Labor Labor Length Hrs Delivered By Post Complications Tubal Sterilization Discharge Date Comments 6 Discharge Information Feeding Method Contraceptive Method Maternal HG B and HCT Levels Ob Episode Information Episode Created Date Number of Fetuses Patient Bloodtype Patient rh Status Prepregnancy Weight lbs Domestic Partner Domestic Partner Phone Father Name Dot Compliance Manager Status 10/17/19 21 1 CLOSED Fetus Data First Name Last Name Admitted to NICU Weight (g) Sex Living Outcome Pediatric Complications Fetus ID Race Codes Race Delivery Type 3940.35 [phone] Primary Winston Calculation Initial Winston Date Initial Exam Date Initial Exam Provider Initial Ultrasound Date Last Menstrual Period Date Ultra Sound Weeks Gestation 0 Eighteen To Twenty Week Winston Update Ultra Sound Date Fundal Height At Umbil Quickening Date Ultra Sound Latest Weeks Gestation Final Winston Confirmed By Final Winston Confirmed Date Final Winston Date Ultra Sound Latest Days Gestation 0 0 Menstrual History Last Menstrual Date Menses Monthly On Bcp Conception Prior Menses Frequency Hcg Plus Date Menarche Onset Age Delivery Information Delivery Date Delivery Type Labor Anesthesia Weeks Gestation Incision Type Labor Labor Length Hrs Delivered By Post Complications Tubal Sterilization Discharge Date Comments 2 Discharge Information Feeding Method Contraceptive Method Maternal HG B and HCT Levels
--- OUTSIDE RECORDS SUMMARY | 2024-10-06 18:27 | XMS_ITS | Encounter Summary ---
Author Organization [facility] Address [address] [place] [address] Phone Care Team Providers Care Crosscutter Rolled Glass Name Role Phone Azar Sanches MD Primary Care Provider [phone] Esvin Carbajal MD Unavailable Esvin Carbajal MD Primary Care Provider [phone] Encounter Details Date Type Department Care Team (Latest Contact Info) Description 09/23/2022 Orders Only [facility] Scanning, Provider Social History Tobacco Use Types Packs/Day Years Used Date Smoking Tobacco: Never Smokeless Tobacco: Never PHQ-2 Answer Date Recorded PHQ-2 Total Score (If total score is 3 or more points, staff should administer the PHQ-9) 0 08/14/2019 Comments Unknown Sex and Gender Information Value Date Recorded Sex Assigned at Not on file 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 Gender Identity Not on file Sexual Orientation Not on file documented as of this encounter Plan of Treatment Not on file documented as of this encounter Procedures Procedure Name Priority Date/Time Associated Diagnosis Comments SCAN - LABS 09/23/2022 documented in this encounter Results * SCAN - LABS (09/23/2022) us Provider Scanning Final Result documented in this encounter Visit Diagnoses Not on filedocumented in this encounter Care Teams Crosscutter Rolled Glass Relationship Specialty Start Date End Date Azar Sanches MD PCP - General Family Medicine 07/10/19 06/07/23 Esvin Carbajal MD [address] [facility] [address] [place] [address] PCP - General Internal Medicine 06/08/23 Esvin Carbajal MD [address] [facility] [address] [place] [address] Referring Physician Internal Medicine 03/15/23 documented as of this encounter
--- OUTSIDE RECORDS SUMMARY | 2024-10-06 18:27 | XMS_ITS | Encounter Summary ---
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 Gender Identity Not on file Sexual Orientation Not on file documented as of this encounter Plan of Treatment Not on file documented as of this encounter Procedures Procedure Name Priority Date/Time Associated Diagnosis Comments SCAN - LABS 10/10/2022 documented in this encounter Results * SCAN - LABS (10/10/2022) us Provider Scanning Final Result documented in this encounter Visit Diagnoses Not on filedocumented in this encounter Care Teams Magazine Filler Relationship Specialty Start Date End Date Azar Sanches MD PCP - General Family Medicine 07/10/19 06/07/23 Esvin Carbajal MD [address] [facility] [address] [place] [address] PCP - General Internal Medicine 06/08/23 Esvin Carbajal MD [address] [facility] [address] [place] [address] Referring Physician Internal Medicine 03/15/23 documented as of this encounter
--- OUTSIDE RECORDS SUMMARY | 2024-10-06 18:27 | XMS_ITS | Clinical Summary ---
Author Organization [facility] Address [address] [place] [address] Care Team Providers Care Reading Aide Name Role Phone Esvin Carbajal MD Unavailable Esvin Carbajal MD Primary Care Provider [phone] Allergies No known active allergies Medications Proctozone-HC [...] water pressure while sleeping. Her DME is [facility] in [place]. Lung nodule 12/10/2023 Assessment & Plan (12/10/2023 [...] preferences Plan biochemical testing today Referral to [place] for GARCIA ROV with neck US and [...] 06/26/2019 Assessment & Plan (02/18/2020 4:15 PM PROBATE JUDGE): History of multiple right thyroid nodules diagnosed [...] cm Pt recently underwent FNA biopsy at [facility] and cytology came back both as benign [...] 09/04/2024 Assessment & Plan (05/05/2024 8:58 AM PROBATE JUDGE): The patient presents with snoring and excessive daytime hypersomnia. I have recommended proceeding with a nocturnal polysomnogram with a split night protocol if necessary and no MSLT. She will follow up here in 4 months. Other fatigue 08/20/2017 09/04/2024 Overview (06/07/2023): Other fatigue;Practice ID: 0001 Encounters Date Type Department Care Team Description 09/04/2024 8:30 AM CDT Office Visit [facility] Pulmonary [address] [place] [id number] Rachael Hdez NP Obstructive sleep apnea (Primary Dx) from Last 3 Months Surgical History Surgery Date Site/Laterality Comments HEMORROIDECTOMY SECTION x4 DILATION AND CURETTAGE OF UTERUS THYROIDECTOMY Medical History Medical History Date Comments Multinodular goiter (nontoxic) 06/2018 Obesity (BMI 30.0-34.9) Palpitations Head ache Papillary thyroid carcinoma (HCC) 06/06/2023 Family History Medical History Relation Name Comments Kidney cancer Father Prostate cancer Father Colon cancer Mother Diabetes Mother Relation Name Status Comments Father Mother Social History Tobacco Use Types Packs/Day Years Used Date Smoking Tobacco: Never Smokeless Tobacco: Never Tobacco Cessation:Counseling Given: Yes PHQ-2 Answer Date Recorded PHQ-2 Total Score (If total score is 3 or more points, staff should administer the PHQ-9) 0 08/14/2019 Comments Unknown Sex and Gender Information Value Date Recorded Sex Assigned at Not on file Legal Sex Female 6:23 AM PROBATE JUDGE Gender Identity Not on file Sexual Orientation Not on file Obstetrics History Para Term AB IAB SAB Ectopic Multiple Livin g Live Births 7 4 4 3 3 4 4 Date Outcome GA Total Labor Labor/2nd/3rd Weight Sex Type Anes PTL Nely A1 A5 Name Clin SAB SAB SAB Term Term Term Term Last Filed Vital Signs Vital Sign Reading [...] 09/04/2024 8:33 AM CDT Plan of Treatment Health Maintenance Due Date Last Done Comments Cervical Cancer Screening 1969 Colon Cancer Screening-Colonoscopy 1969 Hepatitis C Screening 1969 DTaP/Tdap/Td Vaccine (1 - Tdap) 1980 Hepatitis B Screening 09/30/1987 Regular Well Visit/Exam 18-64 09/30/1987 Pneumococcal vaccine <65 (1 of 2 - PCV) 1988 Zoster Vaccine (1 of 2) 1988 Depression Screening 08/13/2020 08/14/2019 Influenza Vaccine (#1) 2024 Breast Cancer Screening-Mammogram 03/20/2025 025 Procedures Procedure Name Priority Date/Time Associated Diagnosis Comments SCREENING MAMMOGRAM BILATERAL W MOODY Schedule Routine, Read Routine (OP Routine) 03/20/2024 3:37 PM PROBATE JUDGE Screening mammogram, encounter for from Last 3 Months or Most Recently Relevant to Health Maintenance Results * Screening Mammogram Bilateral W Moody (03/20/2024 3:37 PM PROBATE JUDGE) Anatomical Region Laterality Modality Breast Bilateral Mammography Narrative 03/21/2024 10:32 AM PROBATE JUDGE Mammogram Technique: Bilateral Digital Breast Tomosynthesis, Bilateral C-view 2D Screening mammogram. Views obtained: bilateral craniocaudal and bilateral mediolateral oblique. Computer Aided Detection was performed. Mammogram Findings: The present examination has been compared to a prior imaging study performed at [facility]. [facility] on 12/12/2022. The breasts are heterogeneously dense, [...] to a prior imaging study performed at [facility] on 12/12/2022. The breasts are heterogeneously dense, [...] Most Recently Relevant to Health Maintenance Insurance [employer] ACCESS CHOICE [employer] ACCESS CHOICE Care Teams Reading Aide Relationship Specialty Start Date End Date Esvin Carbajal MD [address] [facility] [address] [place] [address] PCP - General Internal Medicine 06/08/23 Esvin Carbajal MD [address] [place] [address] Referring Physician Internal Medicine 03/15/23
[2024-10-06 18:28] VITALS: BP 115/81; PULSE 83; RESP 16; TEMP 36.6; O2SAT 95
--- NOTE | 2024-10-06 20:27 | PC.NURSE ---
Call x1 in [place] to be brought back to a room.
[2024-10-06 20:36] VITALS: BP 118/79; PULSE 95; RESP 18; O2SAT 95
--- NOTE | 2024-10-06 20:36 | ED_ITS ---
HPI - Ear Problem General Chief complaint: Ear Stated complaint: left ear ache Time Seen by Provider: 10/06/24 20:31 Source: patient Mode of arrival: ambulatory Limitations: no limitations History of Present Illness HPI Narrative: This is a 54 year old female that presents to the ER for left ear pain. Reports ongoing over the last week. Associated with some congestion. Denies fevers or drainage. Related Data Allergies Allergy/AdvReac Type Severity Reaction Status Date / Time No Known Allergies Allergy Verified 10/06/24 18:26 Review of Systems Review of Systems: All systems reviewed & are unremarkable except as noted in HPI and below PMFSH Past Medical History Medical History No significant past medical history Surgical History Surgical History History of dilation and curettage H/O section x4 Social History Social History Smoking status: Never smoker Living arrangements: with family Gender identity (if verbalized by the patient): Female Exam Narrative: GENERAL: Well-appearing, well-nourished, and in no acute distress. HEAD: Normocephalic, atraumatic. EYES: EOMI. ENT: Nares clear, no rhinorrhea or epistaxis. Mucous membranes moist. Oropharynx without tonsillar hypertrophy exudate or other lesions. Bilateral TMs pearly noonan non-bulging, effusion behind the left TM. Bilateral external auditory canals are normal NECK: Supple. No adenopathy or masses. EXTREMITIES: Normal range of motion. No edema. SKIN: Warm, dry, no rash. NEURO: No focal deficits. Alert and oriented x3. PSYCH: Normal mood and affect Course Vital Signs Vital signs: Vital Signs Temperature 97.8 F 10/06/24 18:28 Pulse Rate 83 10/06/24 18:28 Respiratory Rate 16 10/06/24 18:28 Blood Pressure 115/81 10/06/24 18:28 Pulse Oximetry 95 10/06/24 18:28 Temperature 97.8 F 10/06/24 18:28 Pulse Rate 95 10/06/24 20:36 Respiratory Rate 18 10/06/24 20:36 Blood Pressure 118/79 10/06/24 20:36 Pulse Oximetry 95 10/06/24 20:36 Medical Decision Making MDM Narrative Medical decision making narrative: Patient presents the emergency department for left ear pain, congestion. Ongoing over the last week. She is afebrile and nontoxic appearing. Bilateral external auditory canals are normal. She does have an effusion behind the left TM, but it is not red or bulging. Instructed on further care of viral syndrome. She was given warnings to return to the ER Differential Diagnosis Differential Diagnosis: Otitis media, otitis externa, serous otitis media Vital Signs Vital Signs: Vital Signs Temperature 97.8 F 10/06/24 18:28 Pulse Rate 83 10/06/24 18:28 Respiratory Rate 16 10/06/24 18:28 Blood Pressure 115/81 10/06/24 18:28 Pulse Oximetry 95 10/06/24 18:28 Temperature 97.8 F 10/06/24 18:28 Pulse Rate 95 10/06/24 20:36 Respiratory Rate 18 10/06/24 20:36 Blood Pressure 118/79 10/06/24 20:36 Pulse Oximetry 95 10/06/24 20:36 Critical Care Time Critical Care Time Critical Care Time: No Discharge Plan Discharge Clinical Impression: Acute serous otitis media Qualifiers: Laterality: left Recurrence: not specified as recurrent Qualified Code(s): H65.02 - Acute serous otitis media, left ear Patient Disposition: Home Condition: Stable Instructions: Fluid In The Ear (Serous Otitis Media) (ED) Additional Instructions: Return to the emergency department for fever, worsening pain, or any other concerns Take Tylenol or Motrin [id number] for pain as needed. Flonase for nasal congestion. Zyrtec for runny nose. Follow up with your primary care doctor Patient Language: Mongolian Prescriptions: No Action cyclobenzaprine 7.5 mg tablet 7.5 mg PO HS Qty: 10 0RF Follow-up/Referrals: Solomon,MD Lozano ([place]) [Primary Care Provider] -
--- OUTSIDE RECORDS SUMMARY | 2024-10-06 20:52 | XMS_ITS | Referral Summary ---
Author Organization [facility] Address [address] [place] [address] Care Team Providers Care Pest Control Operator Name Role Phone Esvin Carbajal MD Unavailable Esvin Carbajal MD Primary Care Provider [phone] Encounters Date Type Department Care Team Description 09/04/2024 8:30 AM CDT Office Visit [facility] Medical Group Pulmonary [address] [place] [phone] Rachael Hdez, CHANI Obstructive sleep apnea [...] water pressure while sleeping. Her DME is [employer] in [place]. Lung nodule 12/10/2023 Assessment & Plan (12/10/2023 [...] preferences Plan biochemical testing today Referral to [place] for GARCIA ROV with neck US and [...] Assessment & Plan (02/18/2020 4:15 PM RUBBER MOULDING MACHINE OPERATOR): History of multiple right thyroid nodules diagnosed [...] cm Pt recently underwent FNA biopsy at [facility] and cytology came back both [...] Assessment & Plan (05/05/2024 8:58 AM RUBBER MOULDING MACHINE OPERATOR): The patient presents with snoring and excessive [...] file Legal Sex Female 6:23 AM RUBBER MOULDING MACHINE OPERATOR Gender Identity Not on file Sexual Orientation [...] Routine (OP Routine) 03/20/2024 3:37 PM RUBBER MOULDING MACHINE OPERATOR Screening mammogram, encounter for from Last 3 Months or Most Recently Relevant to Health Maintenance Results * Screening Mammogram Bilateral W Moody (03/20/2024 3:37 PM RUBBER MOULDING MACHINE OPERATOR) Anatomical Region Laterality Modality Breast Bilateral Mammography Narrative 03/21/2024 10:32 AM RUBBER MOULDING MACHINE OPERATOR Mammogram Technique: Bilateral Digital Breast Tomosynthesis, Bilateral C-view 2D Screening mammogram. Views obtained: bilateral craniocaudal and bilateral mediolateral oblique. Computer Aided Detection was performed. Mammogram Findings: The present examination has been compared to a prior imaging study performed at [facility] on 12/12/2022. The breasts are heterogeneously [...] to a prior imaging study performed at [facility] on 12/12/2022. The breasts are heterogeneously [...] Most Recently Relevant to Health Maintenance Insurance [facility] ACCESS CHOICE [facility] ACCESS CHOICE Care Teams Pest Control Operator Relationship Specialty Start Date End Date Esvin Carbajal MD [address] [place] [address] PCP - General Internal Medicine 06/08/23 Esvin Carbajal MD [address] [place] [address] Referring Physician Internal Medicine 03/15/23
--- OUTSIDE RECORDS SUMMARY | 2024-10-06 20:52 | XMS_ITS | Clinical Summary ---
Author Organization [facility] Address [address] [place] [address] Care Team Providers Care Cotton Weigher Operator Name Role Phone Esvin Carbajal MD Unavailable Esvin Carbajal MD Primary Care Provider [phone] Allergies No known active allergies Medications Proctozone-HC [...] water pressure while sleeping. Her DME is [employer] in [place]. Lung nodule 12/10/2023 Assessment & Plan (12/10/2023 [...] preferences Plan biochemical testing today Referral to CT for GARCIA ROV with neck US and [...] 06/26/2019 Assessment & Plan (02/18/2020 4:15 PM WEIGHTS AND MEASURES INSPECTOR): History of multiple right thyroid nodules diagnosed [...] cm Pt recently underwent FNA biopsy at [facility] and cytology came back both [...] 09/04/2024 Assessment & Plan (05/05/2024 8:58 AM WEIGHTS AND MEASURES INSPECTOR): The patient presents with snoring and excessive daytime hypersomnia. I have recommended proceeding with a nocturnal polysomnogram with a split night protocol if necessary and no MSLT. She will follow up here in 4 months. Other fatigue 08/20/2017 09/04/2024 Overview (06/07/2023): Other fatigue;Practice ID: 0001 Encounters Date Type Department Care Team Description 09/04/2024 8:30 AM CDT Office Visit [facility] Medical [facility] Pulmonary [address] [place] [phone] Rachael Hdez NP Obstructive sleep apnea [...] on file Legal Sex Female 6:23 AM WEIGHTS AND MEASURES INSPECTOR Gender Identity Not on file Sexual Orientation [...] Read Routine (OP Routine) 03/20/2024 3:37 PM WEIGHTS AND MEASURES INSPECTOR Screening mammogram, encounter for from Last 3 Months or Most Recently Relevant to Health Maintenance Results * Screening Mammogram Bilateral W Moody (03/20/2024 3:37 PM WEIGHTS AND MEASURES INSPECTOR) Anatomical Region Laterality Modality Breast Bilateral Mammography Narrative 03/21/2024 10:32 AM WEIGHTS AND MEASURES INSPECTOR Mammogram Technique: Bilateral Digital Breast Tomosynthesis, Bilateral C-view 2D Screening mammogram. Views obtained: bilateral craniocaudal and bilateral mediolateral oblique. Computer Aided Detection was performed. Mammogram Findings: The present examination has been compared to a prior imaging study performed at [facility]. [facility] on 12/12/2022. The breasts are [...] to a prior imaging study performed at [facility] on 12/12/2022. The breasts are [...] Most Recently Relevant to Health Maintenance Insurance [employer] ACCESS CHOICE [employer] ACC[employer] CHO[employer] Care Teams Cotton Weigher Operator Relationship Specialty Start Date End Date Esvin Carbajal MD [address] [facility] [address] [place] [address] PCP - General Internal Medicine 06/08/23 Esvin Carbajal MD [address] [place] [address] Referring Physician Internal Medicine 03/15/23
--- OUTSIDE RECORDS SUMMARY | 2024-10-06 20:52 | XMS_ITS | Clinical Summary ---
Author Organization [facility] Address [address] [place] [address] Care Team Providers Care Sulfate Drier Machine Operator Name Role Phone Esvin Carbajal MD Primary Care Provider [phone] Social History Tobacco Use Types Packs/Day Years [...] patient's age to complete this topic Insurance [facility] Care Teams Sulfate Drier Machine Operator Relationship Specialty Start Date End Date Esvin Carbajal MD [address] [facility] [address] [place] [address] PCP - General INTERNAL MEDICINE 06/04/23
--- OUTSIDE RECORDS SUMMARY | 2024-10-06 20:52 | XMS_ITS | Continuity of Care Document ---
Author Organization [facility] Address [address] [place] [address] [place] [address] Phone Care Team Providers Care Home Health Lpn Name Role Phone Azar Sanches MD Unavailable [...] Diagnoses Date Provider Providers Copied on Encounter [facility], [address] [place], [place], [id number], [place] tel:[phone] [facility] Medicine No Information 2 Myron Askew. [address] [place], [place], [id number] , [place]. tel:[phone] PREV VISIT, EST, AGE 40-64 [facility], [address] [place], [place], [id number], [place] tel:[phone] [facility] physical (chief complaint) Encounter for general adult medical examination without abnormal findings 1 Myron Saravia [address], [address], [place], [place], [id number] , [place]. tel:[phone] OFFICE/OUTPA TIENT VISIT, [facility], [address], [place], [place], [id number], [place] tel:[phone] [facility] goiter1 (chief complaint) fatigue1 (chief complaint) cardiac1 (chief complaint) sleep apnea1 (chief complaint) Cardiac murmurThyroid noduleSleep apnea 0 Myron Saravia [address], [address], [place], [place], [address] , [place]. tel:[phone] OFFICE/OUTPA TIENT VISIT, [facility], [address], [place], [place], [address], [place] tel:[phone] [facility] thyroid nodule1 (chief complaint) calcium1 (chief complaint) hematuria1 (chief complaint) heart (chief complaint) polyp1 (chief complaint) fatigue1 (chief complaint) HematuriaHypercalce miaThyroid noduleCardiac murmurPolyp of colonFatigue 0 Myron [address]avia [address], [place], [place], [address] , [place]. tel:[phone] OFFICE/OUTPA TIENT VISIT, [facility], [address], [place], [place], [address], [place] tel:[phone] [facility] murmur1 (chief complaint) hematuria1 (chief complaint) hypercalci um (chief complaint) thyroid nodule1 (chief complaint) sinus (chief complaint) HypercalcemiaHematu riaThyroid noduleCardiac murmurMigraine 0 Myron [address], [address], [place], [place], [address] , [place]. tel:[phone] PREV VISIT, NEW, AGE 40-64 [facility], [address], [place], [place], [address], [place] tel:[phone] [facility] Physical (chief complaint) Encounter for general adult medical exam w abnormal findingsThyroid noduleCardiac murmurMigraineHemor rhoid 0 Myron [address], [address], [place], [place], [address] , [place]. tel: [phone] Family History Family Member Type Diagnosis Age At Onset Mother Problem (finding) Diabetes mellitus Father Problem (finding) of enlarged heart 67 Brother Problem (finding) Alive and well Payers Payer name Insurance type Covered republican ID Authoriza tion(s) No Information Social History [...] ordered Referral Referred To: Almas Goel [address] [facility]
[address] [place], [place], [phone] Ordered: Referrals: Allopathic & Osteopathic Physicians : Internal Medicine : Endocrinology, Diabetes & Metabolism. Almas Goel. Evaluate and treat ordered Referral Ordered: Janette Michaud -Allopathic & Osteopathic Physicians : Internal Medicine : Endocrinology, Diabetes & Metabolism (related to Thyroid nodule) ordered Referral Ordered: Cardiology (related to Cardiac murmur) ordered Referral Ordered: Referrals: Cardiology. Evaluate and treat ordered Referral Ordered: US GUIDANCE ordered Referral Ordered: SLEEP STUDY, ATTENDED ordered Referral Ordered: Janette Michaud -Allopathic & Osteopathic Physicians : Internal Medicine : Endocrinology, Diabetes & Metabolism (related to Thyroid nodule) ordered Referral Ordered: COLONOSCOPY AND BIOPSY ordered Referral Ordered: US THYROID ordered Referral Referred To: Janette Michaud [id number] [facility]
[address] [place], [place] [id number] Ordered: Referrals: Allopathic & Osteopathic Physicians : Internal Medicine : Endocrinology, Diabetes & Metabolism. Janette Michaud. Evaluate and treat ordered Referral Ordered: DOPPLER ECHO EXAM, HEART ordered Referral Ordered: MAMMOGRAM, SCREENING ordered History Of Present Illness Encounter Date [...] .Pt denies any chest pain or sob murmur1 Pt has cardiac m urmur, pt has family history of cardiomyopathy. Pt denies any chest pain or sob. hematuria1 Pt has hematuria . pt was on her period when she did lab Pt denies any UTi symptoms hypercalcium Pt has borderlin e high calcium .Pt denies any bone pain thyroid nodule1 Pt has right rito e enlarged thyroid. Pt has not done thyroid ultrasound yet Her TSH and TPO and TSI are ok. Pt denies any dysphagia or neck pain . sinus Pt states that s he has menstrual migraines for many years .Pt has photophobia without nausea during menstrual period. Pt denies any head injury or waking up at night with headache. Physical Pt needs annual physical Pt notices [...]
--- OUTSIDE RECORDS SUMMARY | 2024-10-06 20:52 | XMS_ITS | Encounter Summary ---
Author Organization [facility] Address [address] [place] [address] Phone Care Team Providers Care Art Museum Docent Name Role Phone Azar Sanches MD Primary Care Provider [phone] Esvin Carbajal MD Unavailable Esvin Carbajal MD Primary Care Provider [phone] Encounter Details Date Type Department Care Team [...] on file Legal Sex Female 6:23 AM FULL STACK SOFTWARE DEVELOPER Gender Identity Not on file Sexual Orientation [...] on filedocumented in this encounter Care Teams Art Museum Docent Relationship Specialty Start Date End Date Azar Sanches MD PCP - General Family Medicine 07/10/19 06/07/23 Esvin Carbajal MD [address] [facility] [address] [place] [address] PCP - General Internal Medicine 06/08/23 Esvin Carbajal MD [address] [facility] [address] [place] [address] Referring Physician Internal Medicine 03/15/23 documented as of this encounter
--- OUTSIDE RECORDS SUMMARY | 2024-10-06 20:52 | XMS_ITS | Encounter Summary ---
Author Organization [facility] Address [address] [place] [address] Phone Care Team Providers Care Echocardiography Technologist Name Role Phone Azar Sanches MD Primary Care Provider [phone] Esvin Carbajal MD Unavailable Esvin Carbajal MD Primary Care Provider [phone] Encounter Details Date Type Department Care Team [...] on file Legal Sex Female 6:23 AM AGRICULTURAL PILOT Gender Identity Not on file Sexual Orientation [...] on filedocumented in this encounter Care Teams Echocardiography Technologist Relationship Specialty Start Date End Date Azar Sanches MD PCP - General Family Medicine 07/10/19 06/07/23 Esvin Carbajal MD [address] [facility] [address] [place] [address] PCP - General Internal Medicine 06/08/23 Esvin Carbajal MD [address] [facility] [address] [place] [address] Referring Physician Internal Medicine 03/15/23 documented as of this encounter
--- OUTSIDE RECORDS SUMMARY | 2024-10-06 20:53 | XMS_ITS | Clinical Summary ---
Author Organization [facility] Address [address] [place] [address] Care Team Providers Care Welding Inspector Name Role Phone Azar Sanches MD Primary Care Provider [phone] Source Comments [facility],non-owned Affiliates and Associated Physician Practices is amultiple site organization consisting of ambulatory clinics and hospital sitesin [place], [place] and [place]. This disclosure is being madepursuant to the Care Everywhere program and may not contain all information available regarding this patient. Last updated 17.[facility] Allergies No known active allergies Medications * [...] patient's age to complete [place] [address] Care Teams Welding Inspector Relationship Specialty Start Date End Date Azar Sanches MD PCP - General 03/15/21
== END 2024-10-06 20:58 | disposition home or self-care (01) ==
LOC: ANHED 20:51
PROVIDERS: Emergency Provider Physician Assistant; PCP Internal Medicine
DX: H65.02 Acute serous otitis media, left ear (principal)
CPT/HCPCS: 99281

== ENCOUNTER 2024-10-13 07:35 | Emergency (ER) | payer BC, SELFPAY ==
--- OUTSIDE RECORDS SUMMARY | 2024-10-13 07:38 | XMS_ITS | Referral Summary ---
Author Organization [facility] Address [address] [place] [address] Care Team Providers Care Holistic Health Practitioner Name Role Phone Esvin Carbajal MD Unavailable Esvin Carbajal MD Primary Care Provider [phone] Encounters Date Type Department Care Team Description 09/04/2024 8:30 AM CDT Office Visit [facility] [address] [place] [phone] Rachael Hdez, CHANI Obstructive sleep apnea [...] water pressure while sleeping. Her DME is [email or web address] in [place]. Lung nodule 12/10/2023 Assessment & Plan (12/10/2023 [...] 06/26/2019 Assessment & Plan (02/18/2020 4:15 PM NURSING HOME PHYSICIAN): History of multiple right thyroid nodules diagnosed [...] cm Pt recently underwent FNA biopsy at [facility] and cytology came back both [...] 09/04/2024 Assessment & Plan (05/05/2024 8:58 AM NURSING HOME PHYSICIAN): The patient presents with snoring and excessive [...] on file Legal Sex Female 6:23 AM NURSING HOME PHYSICIAN Gender Identity Not on file Sexual Orientation [...] Read Routine (OP Routine) 03/20/2024 3:37 PM NURSING HOME PHYSICIAN Screening mammogram, encounter for from Last 3 Months or Most Recently Relevant to Health Maintenance Results * Screening Mammogram Bilateral [facility] [place] (03/20/2024 3:37 PM NURSING HOME PHYSICIAN) Anatomical Region Laterality Modality Breast Bilateral Mammography Narrative 03/21/2024 10:32 AM NURSING HOME PHYSICIAN Mammogram Technique: Bilateral Digital Breast Tomosynthesis, Bilateral C-view 2D Screening mammogram. Views obtained: bilateral craniocaudal and bilateral mediolateral oblique. Computer Aided Detection was performed. Mammogram Findings: The present examination has been compared to a prior imaging study performed at [facility] on 12/12/2022. The breasts are heterogeneously [...] to a prior imaging study performed at [facility] on 12/12/2022. The breasts are heterogeneously [...] Most Recently Relevant to Health Maintenance Insurance [facility] ACCESS CHOICE [facility] ACCESS CHOICE Care Teams Holistic Health Practitioner Relationship Specialty Start Date End Date Esvin Carbajal MD [address] [place] [address] PCP - General Internal Medicine 06/08/23 Esvin Carbajal MD [address] [place] [address] Referring Physician Internal Medicine 03/15/23
--- OUTSIDE RECORDS SUMMARY | 2024-10-13 07:38 | XMS_ITS | Data Portability ---
Author Organization [facility], [employer] Address [address] [address] Assessment Encounter Date Assessment Date Assessment LastModified by Organization Details LastModified Time 05/30/2023 05/30/2023 Patient presente d for follow up. Studies ordered as below. Discussed plan with patient/caregiver , who expressed understanding. Follow up as noted below. [email or web address] Not available 05/30/2023 13:43:34 08/07/2023 08/07/2023 Patient [...] available Lab lipid panel, serum 2024 025 [facility], [address], [address], [place], [address], 10/10/2024 03:05:41 CMP, serum or plasma 2024 025 [email or web address], [address], [address], [place], [address], 10/10/2024 03:05:44 TSH + free T4, serum 2024 025 [email or web address], [facility] [address] [facility], [address], [place], [address], 10/10/2024 03:05:42 T3, free, serum or plasma 2024 025 [email or web address], [facility] [address], [address], [place], [address], 10/10/2024 03:05:43 vitamin D, 25-hydrox y, total, serum 2024 025 [email or web address], [address], [address], [place], [address], 10/10/2024 03:05:41 CBC w/ auto diff 2024 025 [email or web address], [facility] [address], [address], [place], [address], 10/10/2024 03:05:42 PT/PTT, plasma 2023 024 [email or web address], [address], [address], [place], [address], 04/13/2024 08:58:29 TSH + free T4, serum 2023 024 [email or web address], [facility] [address], [address], [place], [address], 04/13/2024 08:58:31 T3, free, serum or plasma 2023 024 [facility], [address], [address], [place], [address], 04/13/2024 08:58:33 CBC w/ auto diff 2023 024 [facility], [facility] [address], [address], [place], [address], 04/13/2024 08:58:32 lipid panel, serum 2023 024 [facility], [address], [address], [place], [address], 04/13/2024 08:58:28 CMP, serum or plasma 2023 024 [email or web address], [address], [address], [place], [address], 04/13/2024 08:58:31 vitamin D, 25-hydrox y, total, serum 2023 024 [facility], [address], [address], [place], [address], 04/13/2024 08:58:34 vitamin D, 25-hydrox y, total, serum 2023 024 [facility], [address], [address], [place], [address], 11/01/2023 13:05:44 CBC w/ auto diff 2023 024 [facility], [address], [address], [place], [address], 11/01/2023 13:05:51 PT/PTT, plasma 2023 024 [facility], [address], [address], [place], [address], 11/01/2023 13:05:45 TSH + free T4, serum 2023 024 [email or web address], [address], [address], [place], [address], 11/01/2023 13:05:52 T3, free, serum or plasma 2023 024 [facility], [address], [address], [place], [address], 11/01/2023 13:05:39 CBC w/ auto diff 2023 024 [facility], [address], [address], [place], [address], 09/13/2023 03:29:18 lipid panel, serum 2023 024 [email or web address], [address], [address], [place], [address], 09/13/2023 03:29:15 CMP, serum or plasma 2023 024 [facility], [address], [address], [place], [address], 09/13/2023 03:29:17 vitamin D, 25-hydrox y, total, serum 2023 024 [facility], [address], [address], [place], [address], 09/13/2023 03:29:19 TSH + free T4, serum 2023 024 [facility], [address], [address], [place], [address], 09/13/2023 03:29:16 T3, free, serum or plasma 2023 024 [facility], [address], [address], [place], [address], 09/13/2023 03:29:18 CMP, serum or plasma 2023 024 [email or web address], [address], [address], [place], [address], 06/01/2023 11:17:49 D-dimer, quant, plasma 2023 024 [email or web address], [address], [address], [place], [address], 05/30/2023 14:37:25 CBC w/ auto diff 2023 024 [email or web address], [address], [address], [place], [address], 07/12/2023 00:26:03 vitamin D, 25-hydrox y, total, serum 2023 024 [facility], [address], [address], [place], [address], 05/30/2023 14:37:27 TSH + free T4, serum 2023 024 [facility], [address], [address], [place], [address], 05/30/2023 14:37:24 T3, free, serum or plasma 2023 024 [facility], [address], [address], [place], [address], 06/01/2023 11:17:50 Referral gynecolog ist referral 2024 025 [facility], [address], [address], [place], [address], 10/13/2024 04:03:13 sleep medicine referral - -- CPAP Titration 2024 025 IZABELA Garcia And/Or Dr. Herrera - [facility], [address] [facility] , [address], [place], [address], 09/15/2024 13:52:55 gynecolog ist referral 2023 024 [facility], [address], [address], [place], [address], 04/14/2024 08:22:50 sleep medicine referral 2023 024 SARMAD Garcia And/Or Dr. Herrera - [facility], [address], [address], [place], [address], 09/04/2024 15:36:44 gynecolog ist referral 2023 024 [facility], [address], [address], [place], [address], 09/04/2023 08:19:21 podiatris t referral 2023 024 [facility], [address] [facility], [address], [place], [address], 08/01/2024 08:21:43 podiatris t referral 2023 024 [facility], [address] [facility] [facility], [address], [place], [address], 05/26/2024 08:17:56 Procedures None recorded. Surgeries None recorded. Imaging XR, hip + pelvis, bilateral [address] [facility] [place], [address], [place], [address], 09/22/2024 08:08:36 CT, chest, w/o contrast [address] Central Scheduling, [address] [facility], [place], [address], 09/22/2024 08:08:36 XR, hip + pelvis, bilateral 2023 024 [facility], [address], [place], [address], 03/25/2024 10:57:20 CT, chest, w/o contrast 2023 024 [facility]uling, [address], [place], [address], 03/25/2024 10:57:20 XR, hip + pelvis, bilateral 2023 024 [facility], [address], [place], [address], 11/08/2023 09:22:18 CT, chest, w/o contrast 2023 024 [facility], [address], [place], [address], 11/26/2023 08:18:54 MAMMO, screening , digital, bilateral 2023 024 [facility], [address], [place], [address], 03/21/2024 11:34:30 electroca rdiogram 2023 024 [facility], [facility], [address], [place], [address], 05/30/2023 15:54:31 XR, foot, 3 or more view 2023 024 [facility], [address], [address], [address], 06/06/2023 08:16:38 Medication Orders levothyro xine 137 mcg tablet [address] [facility], [address] [place], [address], 09/15/2024 13:41:06 levothyro xine 137 mcg tablet 2023 024 [facility], [address] [place], [address], 03/17/2024 16:08:07 levothyro xine 137 mcg tablet 2023 024 [facility], [address] [place], [address], 03/17/2024 15:46:49 levothyro xine 137 mcg tablet 2023 024 [facility], [address] [place], [address], 05/30/2023 14:37:04 Patient TargetsNo targets recorded. Patient Instructions Encounter Date Encounter Id Patient Instructions Last Modified By Organization Details Last Modified Time 05/30/2023 [id number] advised to lose weight [email or web address] Not available 05/30/2023 14:37:04 08/07/2023 [id number] advised to lose weight Not available 08/07/2023 12:59:40 11/01/2023 [id number] heart-healthy diet: care instructions [place] Not available 11/01/2023 13:01:57 03/17/2024 [id number] advised to lose weight [place] Not available 03/17/2024 16:07:58 Discussed and explained advance directives such as standard forms to the . Face to face discussion lasted for a duration of ___ minutes. 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 Referral for Gy necologic examination Referring Physician: Frank Mcknight, Internal Medicine, Encounter Date: 08/07/2023 Cutting Machine Tender Helper Referral for Gy necologic examination Referring Physician: Frank Mcknight Internal Medicine, Encounter Date: 03/17/2024 Sleep Medicine Referral for Obstructive sleep apnea of adult Referring Physician: Frank Mcknight Internal Medicine, Encounter Date: 03/17/2024 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 Machine Tender Helper Referral for Gy necologic examination Referring Physician: Frank Mcknight Internal Medicine, Encounter Date: 09/15/2024 Sleep Medicine Referral for Obstructive sleep apnea syndrome -- CPAP Titration Referring Physician: Frank Mcknight Internal Medicine, Encounter Date: 09/15/2024 Results Created Date Observation Date Name Description Value Unit Range Abnormal Flag Note LastModifiedBy Organization Detail LastModifiedTime 05/30/1905/30/2023 CBC WITH AUTO- DIFFE RENTI AL WBC 5.1 10*3/ uL 3.4-10 .8 Not Available [facility] [address] [facility] [address], [place], [address], 06/01/2023 11:17:48 05/30/19 24 05/30/2023 CBC WITH AUTO- DIFFE RENTI AL RBC 4.28 10*6/ uL 3.80-5 .30 Not Available [facility] [address] [facility] [address], [place], [address], 06/01/2023 11:17:48 05/30/19 24 05/30/2023 CBC WITH AUTO- DIFFE RENTI AL HGB 13.2 g/dL 11.1-1 5.9 Not Available [facility] [address] [facility] [address], [place], [address], 06/01/2023 11:17:48 05/30/19 24 05/30/2023 CBC WITH AUTO- DIFFE RENTI AL HCT 41.5 % 34.0-4 6.6 Not Available [facility] [address] [facility] [address], [place], [address], 06/01/2023 11:17:48 05/30/19 24 05/30/2023 CBC WITH AUTO- DIFFE RENTI AL MCV 97 fL 79-97 Not Available [facility] [address], [place], [address], 06/01/2023 11:17:48 05/30/19 24 05/30/2023 CBC WITH AUTO- DIFFE RENTI AL MCH 30.8 pg 26.6-3 3.0 Not Available [facility] [address], [place], [address], 06/01/2023 11:17:48 05/30/19 24 05/30/2023 CBC WITH AUTO- DIFFE RENTI AL MCHC 31.8 g/dL 31.5-3 5.7 Not Available [facility] [address], [place], [address], 06/01/2023 11:17:48 05/30/19 24 05/30/2023 CBC WITH AUTO- DIFFE RENTI AL RDW 12.9 % 11.5-1 4.5 Not Available [facility] [address], [place], [address], 06/01/2023 11:17:48 05/30/19 24 05/30/2023 CBC WITH AUTO- DIFFE RENTI AL platelets 351 10*3/ uL 150-40 0 Not Available [facility] [address], [place], [address], 06/01/2023 11:17:48 05/30/19 24 05/30/2023 CBC WITH AUTO- DIFFE RENTI AL MPV 10 fL 9-13 Not Available [facility] [address] [facility] [address] [facility] [address], [place], [address], 06/01/2023 11:17:48 05/30/19 24 05/30/2023 CBC WITH AUTO- DIFFE RENTI AL neutrophils 43.1 % 40.0-7 4.0 Not Available [facility] [address] [facility] [address], [place], [address], 06/01/2023 11:17:48 05/30/19 24 05/30/2023 CBC WITH AUTO- DIFFE RENTI AL absolute neutrophils 2.21 10*3/ uL 1.40-7 .00 Not Available [facility] [address] [facility] [address], [place], [address], 06/01/2023 11:17:48 05/30/19 24 05/30/2023 CBC WITH AUTO- DIFFE RENTI AL lymphocytes 50.0 % 14.0-4 6.0 high Not Available [facility] [address] [facility] [address], [place], [address], 06/01/2023 11:17:48 05/30/19 24 05/30/2023 CBC WITH AUTO- DIFFE RENTI AL absolute lymphocytes 2.56 10*3/ uL 0.70-3 .10 Not Available [facility] [address] [facility] [address], [place], [address], 06/01/2023 11:17:48 05/30/19 24 05/30/2023 CBC WITH AUTO- DIFFE RENTI AL monocytes 5.1 % 4.0-12 .0 Not Available [facility] [address] [facility] [address], [place], [address], 06/01/2023 11:17:48 05/30/19 24 05/30/2023 CBC WITH AUTO- DIFFE RENTI AL absolute monocytes 0.26 10*3/ uL 0.10-0 .90 Not Available [facility] [address] [facility] [address], [place], [address], 06/01/2023 11:17:48 05/30/19 24 05/30/2023 CBC WITH AUTO- DIFFE RENTI AL eosinophils 1.2 % 0.0-5. 0 Not Available [facility] [address] [facility] [address], [place], [address], 06/01/2023 11:17:48 05/30/19 24 05/30/2023 CBC WITH AUTO- DIFFE RENTI AL absolute eosinophils 0.06 10*3/ uL 0.00-0 .40 Not Available [facility] [address] [facility] [address], [place], [address], 06/01/2023 11:17:48 05/30/19 24 05/30/2023 CBC WITH AUTO- DIFFE RENTI AL basophils 0.4 % 0.0-3. 0 Not Available [facility] [address] [facility] [address], [place], [address], 06/01/2023 11:17:48 05/30/19 24 05/30/2023 CBC WITH AUTO- DIFFE RENTI AL absolute basophils 0.02 10*3/ uL 0.00-0 .20 Not Available [facility] [address] [facility] [address], [place], [address], 06/01/2023 11:17:48 05/30/19 24 05/30/2023 CBC WITH AUTO- DIFFE RENTI AL imm. gran. 0.2 % 0.0-2. 0 Not Available [facility] [address] [facility] [address], [place], [address], 06/01/2023 11:17:48 05/30/19 24 05/30/2023 CBC WITH AUTO- DIFFE RENTI AL abs. imm. gran. 0.01 10*3/ uL 0.00-0 .10 Not Available [facility] [address] [facility] [address], [place], [address], 06/01/2023 11:17:48 05/30/19 24 05/30/2023 COMPR EHENS DEEP METAB OLIC PANEL sodium 140 mmol/ L 134-14 4 Not Available [facility] [address] [facility] [address], [place], [address], 06/01/2023 11:17:49 05/30/19 24 05/30/2023 COMPR EHENS DEEP METAB OLIC PANEL potassium 4.1 mmol/ L 3.5-5. 2 Not Available [facility] [address] [facility] [address], [place], [address], 06/01/2023 11:17:49 05/30/19 24 05/30/2023 COMPR EHENS DEEP METAB OLIC PANEL chloride 103 mmol/ L 97-108 Not Available [facility] [address] [facility] [address], [place], [address], 06/01/2023 11:17:49 05/30/19 24 05/30/2023 COMPR EHENS DEEP METAB OLIC PANEL carbon dioxide (co2) 28.0 mmol/ L 18.0-2 9.0 Not Available [facility] [address] [facility] [address], [place], [address], 06/01/2023 11:17:49 05/30/19 24 05/30/2023 COMPR EHENS DEEP METAB OLIC PANEL glucose 93 mg/dL 65-99 Tiesha l Fasti ng: < 100 mg/dL Impai red Fasti n - 125 mg/dL Diagn ostic of Diabe malik: => 126 mg/dL Ameri can [employer] [employer] i[employer] n, 2007 Not Available [facility] [address] [facility] [address], [place], [address], 06/01/2023 11:17:49 05/30/19 24 05/30/2023 COMPR EHENS DEEP METAB OLIC PANEL urea nitrogen (BUN) 10 mg/dL 6-20 Not Available [facility] [address] [facility] [address], [place], [address], 06/01/2023 11:17:49 05/30/19 24 05/30/2023 COMPR EHENS DEEP METAB OLIC PANEL creatinine 0.84 mg/dL 0.57-1 .00 Not Available [facility] [address] [facility] [address], [place], [address], 06/01/2023 11:17:49 05/30/19 24 05/30/2023 COMPR EHENS DEEP METAB OLIC PANEL eGFR for nonafrican AM 71 mL/mi nute/ 1.73_ m2 >59 Not Available [facility] [address], [place], [address], 06/01/2023 11:17:49 05/30/19 24 05/30/2023 COMPR EHENS DEEP METAB OLIC PANEL eGFR for AM 86 mL/mi nute/ 1.73_ m2 >59 MDRD Study Equat ion: The calcu lated GFR is NOT appli cable for pedia tric (< 18 years old) and > 70 year old patie nts and patie nts that are NOT of stead [place] state . Not Available [facility] [address], [place], [address], 06/01/2023 11:17:49 05/30/19 24 05/30/2023 COMPR EHENS DEEP METAB OLIC PANEL calcium 9.8 mg/dL 8.7-10 .2 Not Available [facility] [address], [place], [address], 06/01/2023 11:17:49 05/30/19 24 05/30/2023 COMPR EHENS DEEP METAB OLIC PANEL protein, total 7.4 gm/dL 6.4-8. 3 Not Available [facility] [address], [place], [address], 06/01/2023 11:17:49 05/30/19 24 05/30/2023 COMPR EHENS DEEP METAB OLIC PANEL albumin 4.6 gm/dL 3.5-5. 2 Not Available [facility] [address] [address] [facility] [address], [place], [address], 06/01/2023 11:17:49 05/30/19 24 05/30/2023 COMPR EHENS DEEP METAB OLIC PANEL bilirubin, total 0.30 mg/dL 0.00-1 .20 Not Available [facility] [address] [facility] [address], [place], [address], 06/01/2023 11:17:49 05/30/19 24 05/30/2023 COMPR EHENS DEEP METAB OLIC PANEL alkaline phosphatase (ALP) 76 U/L 39-117 Not Available [facility] [address] [facility] [address], [place], [address], 06/01/2023 11:17:49 05/30/19 24 05/30/2023 COMPR EHENS DEEP METAB OLIC PANEL aspartate aminotransfe rase (AST) 14 U/L 0-32 Not Available [facility] [address] [facility] [address], [place], [address], 06/01/2023 11:17:49 05/30/19 24 05/30/2023 COMPR EHENS DEEP METAB OLIC PANEL alanine aminotransfe rase (ALT) 9 U/L 0-33 Not Available [facility] [address] [facility] [address], [place], [address], 06/01/2023 11:17:49 05/30/19 24 05/30/2023 COMPR EHENS DEEP METAB OLIC PANEL A/G ratio (calculated) 1.6 ratio 1.0-2. 7 Not Available [facility] [address] [facility] [address], [place], [address], 06/01/2023 11:17:49 05/30/19 24 05/30/2023 COMPR EHENS DEEP METAB OLIC PANEL globulin (calculated) 2.8 gm/dL 1.5-3. 8 Not Available [place] [address] [facility] [address], [place], [address], 06/01/2023 11:17:49 05/30/19 24 05/30/2023 COMPR EHENS DEEP METAB OLIC PANEL BUN/creatini ne ratio (calculated) 11.9 ratio 8.0-20 .0 Not Available [facility] [address] [facility] [address], [place], [address], 06/01/2023 11:17:49 05/30/19 24 05/30/2023 COMPR EHENS DEEP METAB OLIC PANEL serum hemolysis index NORMAL index normal Not Available [facility] [address] [facility] [address], [place], [address], 06/01/2023 11:17:49 05/30/19 24 05/30/2023 FREE T3 triiodothyro nine (T3), free 3.64 pg/mL 2.00-4 .40 NOTE: REFER ENCE RANGE S FOR PATIE NTS < 16 YEARS OF AGE HAS NOT BEEN VALID ATED. FOR INFOR MATIO N ONLY. PREGN ANT FEMAL E: 1st Trime ster: 1.6-3 .3 pg/mL 2nd Trime ster: Not Estab lishe d 3rd Trime ster: 1.0-3 .2 pg/mL Not Available [facility] [address] [facility] [address], [place], [address], 06/01/2023 11:17:49 05/30/19 24 05/30/2023 FREE T4 thyroxine (T4), free 2.16 NG/dL 0.82-1 .77 high Not Available [facility] [address] [facility] [address], [place], [address], 06/01/2023 11:17:50 05/30/19 24 05/30/2023 THYRO ID-ST IM. HORMO NE (TSH) , HIGH- SENSI TIVE thyroid-stim . hormone (TSH), hs 0.04 uIU/m L 0.27-4 .20 low Not Available [facility] [address] [facility] [address], [place], [address], 06/01/2023 11:17:51 05/30/19 24 05/30/2023 VITAM IN [...] icati on: > 100 ng/mL Not Available [facility] [address] [facility] [address], [place], [address], 06/01/2023 11:17:51 05/30/19 24 06/01/2023 D-DIM ER [...] cult. To addre ss this, the [employer] , based [...] year old 0.80 mg/L FEU. Not Available [facility] [address], [place], [address], 06/01/2023 11:17:52 09/12/19 24 09/13/2023 LIPID PANEL , STAND SINCERE cholesterol, total 261 mg/dL <200 high Not Available [facility] [place] [address] [place], [address], 09/13/2023 03:29:15 09/12/19 24 09/13/2023 LIPID PANEL , STAND SINCERE HDL cholesterol 74 mg/dL > or = 50 normal Not Available [facility] [place] [address] [place], [address], 09/13/2023 03:29:15 09/12/19 24 09/13/2023 LIPID PANEL , STAND SINCERE triglyceride s 159 mg/dL <150 high Not Available [facility] [place] [address] [facility] [place], [address], 09/13/2023 03:29:15 09/12/1909/13/2023 LIPID PANEL , STAND SINCERE LDL-choleste rol [...] 2061- 2068 (http ://ed ucati on.Qu estDi chrystalItibia Technologiess. com/f aq/FA Q164) Not Available [facility] [place] [address] [facility] [place], [address], 09/13/2023 03:29:15 09/12/19 24 09/13/2023 LIPID PANEL , STAND SINCERE chol/HDLC ratio 3.5 (calc ) <5.0 normal Not Available [address], [address], 09/13/2023 03:29:15 09/12/19 24 09/13/2023 LIPID PANEL , STAND SINCERE non HDL cholesterol 187 mg/dL _(sophie c) <130 high For patie nts with diabe malik plus 1 major ASCVD risk facto r, treat ing to a non-H DL-C goal of <100 mg/dL (LDL- C of <70 mg/dL ) is dinorah saleh optio n. Not Available [address], [address], 09/13/2023 03:29:15 09/12/19 24 09/13/2023 TSH+F REE T4 TSH 13.91 mIU/L high Refer ence Range > or = 20 Years 0.40- 4.50 Pregn mario Range s First trime ster 0.26- 2.66 Secon d trime ster 0.55- 2.73 Third trime ster 0.43- 2.91 Not Available [address], [address], 09/13/2023 03:29:16 09/12/19 24 09/13/2023 TSH+F REE T4 T4, free 0.4 NG/dL 0.8-1. 8 low Not Available [facility] [address], [address], 09/13/2023 03:29:16 09/12/19 24 09/13/2023 COMPR EHENS DEEP METAB OLIC PANEL glucose 85 mg/dL 65-99 normal Fasti ng refer ence inter rafa Not Available [address] [place], [address], 09/13/2023 03:29:17 09/12/19 24 09/13/2023 COMPR EHENS DEEP METAB OLIC PANEL urea nitrogen (BUN) 12 mg/dL 7-25 normal Not Available [address], [address], 09/13/2023 03:29:17 09/12/19 24 09/13/2023 COMPR EHENS DEEP METAB OLIC PANEL creatinine 0.90 mg/dL 0.50-1 .03 normal Not Available [address], [address], 09/13/2023 03:29:17 09/12/19 24 09/13/2023 COMPR EHENS DEEP METAB OLIC PANEL eGFR 76 mL/mi n/1.7 3m2 > or = 60 normal Not Available [address], [address], 09/13/2023 03:29:17 09/12/19 24 09/13/2023 COMPR EHENS DEEP METAB OLIC PANEL BUN/creatini ne ratio SEE NOTE: (calc ) 6-22 Not Repor charline: BUN and Creat inine are withi n refer ence range . Not Available [address], [address], 09/13/2023 03:29:17 09/12/19 24 09/13/2023 COMPR EHENS DEEP METAB OLIC PANEL sodium 137 mmol/ L 135-14 6 normal Not Available [address] [place], [address], 09/13/2023 03:29:17 09/12/19 24 09/13/2023 COMPR EHENS DEEP METAB OLIC PANEL potassium 4.0 mmol/ L 3.5-5. 3 normal Not Available [address], [address], 09/13/2023 03:29:17 09/12/19 24 09/13/2023 COMPR EHENS DEEP METAB OLIC PANEL chloride 103 mmol/ L 98-110 normal Not Available [address], [address], 09/13/2023 03:29:17 09/12/19 24 09/13/2023 COMPR EHENS DEEP METAB OLIC PANEL carbon dioxide 27 mmol/ L 20-32 normal Not Available [address], [address], 09/13/2023 03:29:17 09/12/19 24 09/13/2023 COMPR EHENS DEEP METAB OLIC PANEL calcium 8.9 mg/dL 8.6-10 .4 normal Not Available [address], [address], 09/13/2023 03:29:17 09/12/19 24 09/13/2023 COMPR EHENS DEEP METAB OLIC PANEL protein, total 7.2 g/dL 6.1-8. 1 normal Not Available [address], [address], 09/13/2023 03:29:17 09/12/19 24 09/13/2023 COMPR EHENS DEEP METAB OLIC PANEL albumin 4.4 g/dL 3.6-5. 1 normal Not Available [address], [address], 09/13/2023 03:29:17 09/12/19 24 09/13/2023 COMPR EHENS DEEP METAB OLIC PANEL globulin 2.8 g/dL_ (calc ) 1.9-3. 7 normal Not Available [address], [address], 09/13/2023 03:29:17 09/12/19 24 09/13/2023 COMPR EHENS DEEP METAB OLIC PANEL albumin/glob ulin ratio 1.6 (calc ) 1.0-2. 5 normal Not Available [address], [address], 09/13/2023 03:29:17 09/12/19 24 09/13/2023 COMPR EHENS DEEP METAB OLIC PANEL bilirubin, total 0.4 mg/dL 0.2-1. 2 normal Not Available [address], [address], 09/13/2023 03:29:17 09/12/19 24 09/13/2023 COMPR EHENS DEEP METAB OLIC PANEL alkaline phosphatase 66 U/L 37-153 normal Not Available [address], [address], 09/13/2023 03:29:17 09/12/19 24 09/13/2023 COMPR EHENS DEEP METAB OLIC PANEL AST 33 U/L 10-35 normal Not Available [address], [address], 09/13/2023 03:29:17 09/12/19 24 09/13/2023 COMPR EHENS DEEP METAB OLIC PANEL ALT 23 U/L 6-29 normal Not Available [address], [address], 09/13/2023 03:29:17 09/12/19 24 09/13/2023 CBC (INCL UDES DIFF/ PLT) white blood cell count 5.5 thous and/u L 3.8-10 .8 normal Not Available [address], [address], 09/13/2023 03:29:18 09/12/19 24 09/13/2023 CBC (INCL UDES DIFF/ PLT) red blood cell count 4.59 marian on/uL 3.80-5 .10 normal Not Available [address], [address], 09/13/2023 03:29:18 09/12/19 24 09/13/2023 CBC (INCL UDES DIFF/ PLT) hemoglobin 14.1 g/dL 11.7-1 5.5 normal Not Available [address], [address], 09/13/2023 03:29:18 09/12/19 24 09/13/2023 CBC (INCL UDES DIFF/ PLT) hematocrit 43.6 % 35.0-4 5.0 normal Not Available [address], [address], 09/13/2023 03:29:18 09/12/19 24 09/13/2023 CBC (INCL UDES DIFF/ PLT) MCV 95.0 fL 80.0-1 00.0 normal Not Available [address], [address], 09/13/2023 03:29:18 09/12/19 24 09/13/2023 CBC (INCL UDES DIFF/ PLT) MCH 30.7 pg 27.0-3 3.0 normal Not Available [address], [address], 09/13/2023 03:29:18 09/12/19 24 09/13/2023 CBC (INCL UDES DIFF/ PLT) MCHC 32.3 g/dL 32.0-3 6.0 normal Not Available [address], [address], 09/13/2023 03:29:18 09/12/19 24 09/13/2023 CBC (INCL UDES DIFF/ PLT) RDW 12.7 % 11.0-1 5.0 normal Not Available [address], [address], 09/13/2023 03:29:18 09/12/19 24 09/13/2023 CBC (INCL UDES DIFF/ PLT) platelet count 334 thous and/u L 140-40 0 normal Not Available [address], [address], 09/13/2023 03:29:18 09/12/19 24 09/13/2023 CBC (INCL UDES DIFF/ PLT) MPV 10.8 fL 7.5-12 .5 normal Not Available [address], [address], 09/13/2023 03:29:18 09/12/19 24 09/13/2023 CBC (INCL UDES DIFF/ PLT) absolute neutrophils 2673 cells /uL 1500-7 800 normal Not Available [address], [address], 09/13/2023 03:29:18 09/12/19 24 09/13/2023 CBC (INCL UDES DIFF/ PLT) absolute lymphocytes 2558 cells /uL 850-39 00 normal Not Available [address], [address], 09/13/2023 03:29:18 09/12/19 24 09/13/2023 CBC (INCL UDES DIFF/ PLT) absolute monocytes 187 cells /uL 200-95 0 low Not Available [address], [address], 09/13/2023 03:29:18 09/12/19 24 09/13/2023 CBC (INCL UDES DIFF/ PLT) absolute eosinophils 61 cells /uL 15-500 normal Not Available [facility] [address], [address], 09/13/2023 03:29:18 09/12/19 24 09/13/2023 CBC (INCL UDES DIFF/ PLT) absolute basophils 22 cells /uL 0-200 normal Not Available [address], [address], 09/13/2023 03:29:18 09/12/19 24 09/13/2023 CBC (INCL UDES DIFF/ PLT) neutrophils 48.6 % normal Not Available [address], [address], 09/13/2023 03:29:18 09/12/19 24 09/13/2023 CBC (INCL UDES DIFF/ PLT) lymphocytes 46.5 % normal Not Available [address], [address], 09/13/2023 03:29:18 09/12/19 24 09/13/2023 CBC (INCL UDES DIFF/ PLT) monocytes 3.4 % normal Not Available [address], [address], 09/13/2023 03:29:18 09/12/19 24 09/13/2023 CBC (INCL UDES DIFF/ PLT) eosinophils 1.1 % normal Not Available [address], [address], 09/13/2023 03:29:18 09/12/19 24 09/13/2023 CBC (INCL UDES DIFF/ PLT) basophils 0.4 % normal Not Available [address], [address], 09/13/2023 03:29:18 09/12/19 24 09/13/2023 T3, FREE T3, free 1.5 pg/mL 2.3-4. 2 low Not Available [address], [address], 09/13/2023 03:29:18 09/12/19 24 09/13/2023 VITAM IN [...] /MS is recom adriana d: order code 30907 (get ents >2yrs ). See Note 1 Note 1 For addit ional infor artie adams refer to http: //[facility] mandy Velasquez stDia gnost ics.c om/fa q/FAQ 199 (This link is being provi ded for infor dominga hayes/ educivan womack purpo ses only. ) Not Available [facility] [address] , [place], [address], 09/13/2023 03:29:19 12/10/19 24 12/10/2023 Thyro tropi [...] total 197 mg/dL <200 normal Not Available [facility] [address] , [place], [address], 04/13/2024 08:58:28 04/12/1904/13/2024 LIPID PANEL , STAND SINCERE HDL cholesterol 63 mg/dL > or = 50 normal Not Available [address], [address], 04/13/2024 08:58:28 04/12/1904/13/2024 LIPID PANEL , STAND SINCERE triglyceride s 99 mg/dL <150 normal Not Available [address], [address], 04/13/2024 08:58:28 04/12/1904/13/2024 LIPID PANEL , STAND SINCERE LDL-choleste rol 113 mg/dL _(sophie c) high Refer ence range : <100 Aleksandar able range <100 mg/dL for prima ry preve ntion ; <70 mg/dL for patie nts with CHD or diabe tic patie nts with > or = 2 CHD risk facto rs. LDL-C is now calcu lated using the Mayte n-Hop kins calcu faby n, which is a valid ated novel sumantho d evyi jack mcclainte r accur acy than the Fried jorge a equat ion in the estim ation of LDL-C . Mayte bautista SS et al. BETTINA. 2013; 310(1 9): 2061- 2068 (http ://ed ucati on.Qu Arlette Audioms. com/f aq/FA Q164) Not Available [address], [address], 04/13/2024 08:58:28 04/12/1904/13/2024 LIPID PANEL , STAND SINCERE chol/HDLC ratio 3.1 (calc ) <5.0 normal Not Available [address], [address], 04/13/2024 08:58:28 04/12/19 25 04/13/2024 LIPID PANEL , STAND SINCERE non HDL cholesterol 134 mg/dL _(sophie c) <130 high For patie nts with diabe malik plus 1 major ASCVD risk facto r, treat ing to a non-H DL-C goal of <100 mg/dL (LDL- C of <70 mg/dL ) is consi dered a thera julissa c martino n. Not Available [address] [address] [place], [address], 04/13/2024 08:58:28 04/12/1904/13/2024 PROTH ROMBI N W/INR [...] Hepar in Anti- Xa assay (test code 43736 ). For addit ional infor artie adams e refer to http: //[facility] mandy bautista.Italo stDia gnost ics.c om/fa q/FAQ 159 (This link is being provi ded for infor dominga nal/e ducat ional purpo ses only. ) Not Available [address] [address] [facility] [place], [address], 04/13/2024 08:58:29 04/12/1904/13/2024 PROTH ROMBI N W/INR + PARTI AL THROM BOPLA STIN TIMES INR 1.0 normal Refer ence Range 0.9-1 .1 Moder ate-i ntens ity Warfa rin Thera py 2.0-3 .0 Highe r-int ensit y Warfa rin Thera py 3.0-4 .0 Not Available [address] [address] [place], [address], 04/13/2024 08:58:29 04/12/1904/13/2024 PROTH ROMBI N W/INR + PARTI AL THROM BOPLA STIN TIMES PT 11.0 sec 9.0-11 .5 normal Not Available [address] [address] [place], [address], 04/13/2024 08:58:29 04/12/1904/13/2024 TSH+F REE T4 TSH 0.04 mIU/L low Refer ence Range > or = 20 Years 0.40- 4.50 Pregn mario Range s First trime ster 0.26- 2.66 Secon d trime ster 0.55- 2.73 Third trime ster 0.43- 2.91 Not Available [address], [address], 04/13/2024 08:58:31 04/12/1904/13/2024 TSH+F REE T4 T4, free 1.6 NG/dL 0.8-1. 8 normal Not Available [address], [address], 04/13/2024 08:58:31 04/12/1904/13/2024 COMPR EHENS DEEP METAB OLIC PANEL glucose 111 mg/dL 65-99 high Fasti ng refer ence inter rafa For someo ne witho ut known diabe malik, a gluco se value betwe en 100 and 125 mg/dL is consi stent with predi abete s and shoul d be confi rmed with a follo w-up test. Not Available [address], [address], 04/13/2024 08:58:31 04/12/1904/13/2024 COMPR EHENS DEEP METAB OLIC PANEL urea nitrogen (BUN) 16 mg/dL 7-25 normal Not Available [address], [address], 04/13/2024 08:58:31 04/12/1904/13/2024 COMPR EHENS DEEP METAB OLIC PANEL creatinine 0.89 mg/dL 0.50-1 .03 normal Not Available [address], [address], 04/13/2024 08:58:31 04/12/1904/13/2024 COMPR EHENS DEEP METAB OLIC PANEL eGFR 77 mL/mi n/1.7 3m2 > or = 60 normal Not Available [address], [address], 04/13/2024 08:58:31 04/12/1904/13/2024 COMPR EHENS DEEP METAB OLIC PANEL BUN/creatini ne ratio SEE NOTE: (calc ) 6-22 Not Repor charline: BUN and Creat inine are withi n refer ence range . Not Available [address], [address], 04/13/2024 08:58:31 04/12/1904/13/2024 COMPR EHENS DEEP METAB OLIC PANEL sodium 142 mmol/ L 135-14 6 normal Not Available [address], [address], 04/13/2024 08:58:31 04/12/1904/13/2024 COMPR EHENS DEEP METAB OLIC PANEL potassium 4.4 mmol/ L 3.5-5. 3 normal Not Available [address], [address], 04/13/2024 08:58:31 04/12/1904/13/2024 COMPR EHENS DEEP METAB OLIC PANEL chloride 104 mmol/ L 98-110 normal Not Available [address], [address], 04/13/2024 08:58:31 04/12/1904/13/2024 COMPR EHENS DEEP METAB OLIC PANEL carbon dioxide 29 mmol/ L 20-32 normal Not Available [address], [address], 04/13/2024 08:58:31 04/12/1904/13/2024 COMPR EHENS DEEP METAB OLIC PANEL calcium 10.2 mg/dL 8.6-10 .4 normal Not Available [address], [address], 04/13/2024 08:58:31 04/12/1904/13/2024 COMPR EHENS DEEP METAB OLIC PANEL protein, total 7.7 g/dL 6.1-8. 1 normal Not Available [address], [address], 04/13/2024 08:58:31 04/12/1904/13/2024 COMPR EHENS DEEP METAB OLIC PANEL albumin 4.5 g/dL 3.6-5. 1 normal Not Available [address], [address], 04/13/2024 08:58:31 04/12/1904/13/2024 COMPR EHENS DEEP METAB OLIC PANEL globulin 3.2 g/dL_ (calc ) 1.9-3. 7 normal Not Available [address], [address], 04/13/2024 08:58:31 04/12/1904/13/2024 COMPR EHENS DEEP METAB OLIC PANEL albumin/glob ulin ratio 1.4 (calc ) 1.0-2. 5 normal Not Available [facility] [address], [address], 04/13/2024 08:58:31 04/12/1904/13/2024 COMPR EHENS DEEP METAB OLIC PANEL bilirubin, total 0.6 mg/dL 0.2-1. 2 normal Not Available [address], [address], 04/13/2024 08:58:31 04/12/1904/13/2024 COMPR EHENS DEEP METAB OLIC PANEL alkaline phosphatase 62 U/L 37-153 normal Not Available [id number] [place] [address] [place], [address], 04/13/2024 08:58:31 04/12/1904/13/2024 COMPR EHENS DEEP METAB OLIC PANEL AST 14 U/L 10-35 normal Not Available [address] [address] [place], [address], 04/13/2024 08:58:31 04/12/1904/13/2024 COMPR EHENS DEEP METAB OLIC PANEL ALT 10 U/L 6-29 normal Not Available [address], [address], 04/13/2024 08:58:31 04/12/1904/13/2024 CBC (INCL UDES DIFF/ PLT) white blood cell count 5.2 thous and/u L 3.8-10 .8 normal Not Available [address], [address], 04/13/2024 08:58:32 04/12/1904/13/2024 CBC (INCL UDES DIFF/ PLT) red blood cell count 4.48 marian on/uL 3.80-5 .10 normal Not Available [address], [address], 04/13/2024 08:58:32 04/12/1904/13/2024 CBC (INCL UDES DIFF/ PLT) hemoglobin 13.7 g/dL 11.7-1 5.5 normal Not Available [address], [address], 04/13/2024 08:58:32 04/12/1904/13/2024 CBC (INCL UDES DIFF/ PLT) hematocrit 42.6 % 35.0-4 5.0 normal Not Available [facility] [address], [address], 04/13/2024 08:58:32 04/12/1904/13/2024 CBC (INCL UDES DIFF/ PLT) MCV 95.1 fL 80.0-1 00.0 normal Not Available [address], [address], 04/13/2024 08:58:32 04/12/1904/13/2024 CBC (INCL UDES DIFF/ PLT) MCH 30.6 pg 27.0-3 3.0 normal Not Available [address], [address], 04/13/2024 08:58:32 04/12/1904/13/2024 CBC (INCL UDES DIFF/ PLT) MCHC 32.2 g/dL 32.0-3 6.0 normal For adult s, a sligh t decre ase in the calcu lated MCHC value (in the range of 30 to 32 g/dL) is most likel y not clini cheryl signi fican t; earle er, it shoul d be inter prete d with cauti on in corre lat n with other red cell jerrell eters and the patie nt's clini sophie condi tion. Not Available [address], [address], 04/13/2024 08:58:32 04/12/1904/13/2024 CBC (INCL UDES DIFF/ PLT) RDW 12.5 % 11.0-1 5.0 normal Not Available [address], [address], 04/13/2024 08:58:32 04/12/1904/13/2024 CBC (INCL UDES DIFF/ PLT) platelet count 312 thous and/u L 140-40 0 normal Not Available [address], [address], 04/13/2024 08:58:32 04/12/1904/13/2024 CBC (INCL UDES DIFF/ PLT) MPV 10.6 fL 7.5-12 .5 normal Not Available [address], [address], 04/13/2024 08:58:32 04/12/1904/13/2024 CBC (INCL UDES DIFF/ PLT) absolute neutrophils 2454 cells /uL 1500-7 800 normal Not Available [address], [address], 04/13/2024 08:58:32 04/12/1904/13/2024 CBC (INCL UDES DIFF/ PLT) absolute lymphocytes 2423 cells /uL 850-39 00 normal Not Available [address], [address], 04/13/2024 08:58:32 04/12/1904/13/2024 CBC (INCL UDES DIFF/ PLT) absolute monocytes 281 cells /uL 200-95 0 normal Not Available [address], [address], 04/13/2024 08:58:32 04/12/1904/13/2024 CBC (INCL UDES DIFF/ PLT) absolute eosinophils 21 cells /uL 15-500 normal Not Available [address], [address], 04/13/2024 08:58:32 04/12/1904/13/2024 CBC (INCL UDES DIFF/ PLT) absolute basophils 21 cells /uL 0-200 normal Not Available [address], [address], 04/13/2024 08:58:32 04/12/1904/13/2024 CBC (INCL UDES DIFF/ PLT) neutrophils 47.2 % normal Not Available [address], [address], 04/13/2024 08:58:32 04/12/1904/13/2024 CBC (INCL UDES DIFF/ PLT) lymphocytes 46.6 % normal Not Available [address], [address], 04/13/2024 08:58:32 04/12/1904/13/2024 CBC (INCL UDES DIFF/ PLT) monocytes 5.4 % normal Not Available [address], [address], 04/13/2024 08:58:32 04/12/1904/13/2024 CBC (INCL UDES DIFF/ PLT) eosinophils 0.4 % normal Not Available [address], [address], 04/13/2024 08:58:32 04/12/1904/13/2024 CBC (INCL UDES DIFF/ PLT) basophils 0.4 % normal Not Available [address], [address], 04/13/2024 08:58:32 04/12/1904/13/2024 T3, FREE T3, free 3.3 pg/mL 2.3-4. 2 normal Not Available [address], [address], 04/13/2024 08:58:33 04/12/1904/13/2024 VITAM IN D,25- [place],TO [...] /MS is recom adriana d: order code 06460 (get ents >2yrs ). See Note 1 Note 1 For addit ional infor artie adams refer to http: //[facility] mandy Holloway gnost ics.c om/fa q/FAQ 199 (This link is being provi ded for infor dominga hayes/ israel womack purpo ses only. ) Not Available [facility] [address], [place], [address], 04/13/2024 08:58:34 05/30/19 24 05/31/2023 elect rocar diogr am No observ ation record ed. [address], [facility] [address], [place], [address], 08/07/2023 13:00:50 05/30/19 24 05/30/2023 elect rocanshul diogr am No observ ation record ed. [address], [facility] [address], [place], [address], 08/07/2023 13:00:50 06/04/[address] [facility] [place] [place] [address] Orderi ng Provid er: FRANK MCKNIGHT Date: [...] perfor med on an indepe ndent workst ation. A dose loweri ng techni que was [...] is a 3 mm nodule in the alemite operator ior right apical lung as seen on [...] a. 4. 3 mm nodule in the alemite operator ior right apical lung. No follow -up [...] By: Calixto bautista Jr, MD, 12:[address], [place], [address], 08/07/2023 13:00:50 06/05/19 24 06/05/2023 US, echoc ardio gram No observ ation record ed. [address], [facility] [address], [place], [address], 08/07/2023 13:00:49 06/07/19 24 06/06/2023 XR, chest , 2 view No observ ation record ed. [address], [place], [address], 08/07/2023 13:00:49 08/01/19 24 06/27/2023 US, echoc ardio gram No observ ation record ed. [address], [facility] [address], [place], [address], 08/07/2023 13:00:49 11/01/19 XR, knee No observ ation record ed. [facility] [address] [facility] [address], [place], [address], 11/01/2023 12:49:59 03/21/19 25 03/20/2024 MAMMO , scree blake, digit al, bilat eral No observ ation record ed. [facility] [address] [place], [address], 03/28/2024 16:08:29 Result Notes None recorded. Problems Name Problem SNOMED Code Status Onset Date Resolution Date Notes Provider Name and Address Organization Details Recorded Time Seasonal allergic rhinitis 724030173 Active 2022 Frank Mcknight MD [address], [place], [address], [facility] 15:34:49 Migraine 52390614 Active 2022 Frank Mcknight MD [address], [place], [address], [facility] 3 15:34:57 Polyp of colon 78674400 Active 2022 Frank Mcknight MD [address], [place], [address], [facility] 3 15:36:04 Hemorrhoids 39393459 Active 2022 Frank Mcknight MD [address], [place], [address], [facility] 3 15:36:13 Goiter 8404782 Active 2022 Frank Mcknight MD [address], [place], [address], [facility] 15:37:48 Vitamin D deficiency 41333381 Active 2022 Frank Mcknight MD [address], [place], [address], [facility] 15:39:03 Fatigue 60190186 Active 2022 Frank Mcknight MD [address], [place], [address], [facility] 15:39:14 Hyperlipide luba 62609131 Active 2022 Frank Mcknight MD [address], [place], [address], [facility] 15:40:36 Amenorrhea 09134711 Active 2022 Frank Mcknight MD [address], [place], [address], [facility] 15:41:55 Pain of left knee joint 6841934155414 07 Active 2022 Frank Mcknight MD [address], [place], [address], [facility] 16:03:16 Lumbar radiculopat hy 147778312 Active 2022 Frank Mcknight MD [address], [place], [address], [facility] 3 16:04:04 Plain X-ray of lumbar spine abnormal 158779061 Active 2022 Maricel Polanco MD [address], [place], [address], [facility] 3 23:40:37 Thyroid nodule 998452951 Active 2022 Frank Mcknight MD [address], [place], [address], [facility] 3 07:27:44 Weight gain 2723820 Active 2022 Frank Mcknight MD [address], [place], [address], [facility] 3 08:15:18 Problem Notes None recorded. Procedures Surgical History Date Name Laterality Status Provider Name and Address Organization Details Recorded Time 03/21/19 25 Date of Last Mammogram completed [facility] 09/15/2024 12:46:49 05/01/19 24 thyroidectomy completed Marleni Rasmussen [facility] 05/09/2023 10:36:11 10/18/19 22 Date of Last Pap Smear completed [facility] 08/24/2022 14:38:59 09/26/19 20 Colonoscopy completed Frank Mcknight MD [address], [place], [address], [facility] 10/24/2022 20:27:23 Imaging Results None recorded. Procedure [...] /min 16 /min 97.6 [degF] 32.8 kg/m2 87827.5 9 g 94/59 mm[Hg] Marleni Rasmussen [facility] 4 13:51:14 Date Recorded Body height Heart rate Respiratory rate Body temperature Body mass index (BMI) Body weight Systolic And Diastolic Provider Name and Address Organization Details Last Updated DateTime 4 160.02 cm 73 /min 16 /min 97.5 [degF] 32.4 kg/m2 42040.4 g 118/77 mm[Hg] [facility] 4 12:27:18 Date Recorded Body height Body mass index (BMI) Body weight Heart rate Respiratory rate Body temperature Systolic And Diastolic Provider Name and Address Organization Details Last Updated DateTime 5 160.02 cm 34.4 kg/m2 70248.9 2 g 64 /min 16 /min 97.5 [degF] 122/82 mm[Hg] [facility] 5 12:46:11 Date Recorded Body height Heart rate Respiratory rate Body temperature Body weight Body mass index (BMI) Systolic And Diastolic Provider Name and Address Organization Details Last Updated DateTime 4 160.02 cm 73 /min 16 /min 96.7 [degF] 30801.5 9 g 32.8 kg/m2 112/75 mm[Hg] Catia Parish [facility] 4 12:29:15 Date Recorded Body height Heart rate Respiratory rate Body temperature Body mass index (BMI) Body weight Systolic And Diastolic Provider Name and Address Organization Details Last Updated DateTime 4 160.02 cm 77 /min 16 /min 97.1 [degF] 33.1 kg/m2 05483.7 7 g 126/85 mm[Hg] Catia Parish [facility] 4 15:24:27 Social History Question Answer Notes LastModified by Organizat ion Details LastModified Time Tobacco Smoking Status Never Smoker Catia Parish [facility] 08/24/2022 14:37:21 Do You Have An Advance Directive? No Information not available 04/23/2023 Do You Wear A Helmet When Biking? No [email or web address] Information not available 04/23/2023 Are You Blind Or Do You Have Difficulty Seeing? No [email or web address] Information not available 04/23/2023 Is Blood Transfusion Acceptable In An Emergency? Yes Information not available 04/23/2023 What Is Your Level Of Caffeine Consumption? Heavy 8 Cups/cans A Day Information not available 04/23/2023 What Type Of Paper Finisher Do You Use? None [email or web address] Information not available 04/23/2023 In The 14 Days Before Symptom Onset, Have You Had Close Contact With A Laboratory-confir med COVID-19 While That Case Was Ill? No Information not available 04/23/2023 In The 14 Days Before Symptom Onset, Have You Had Close Contact With A Person Who Is Under Investigation For COVID-19 While That Person Was Ill? No [email or web address] Information not available 04/23/2023 Have You Been To An Area Known To Be High Risk For COVID-19? No [email or web address] Information not available 04/23/2023 Are You Deaf Or Do You Have Serious Difficulty Hearing? No [email or web address] Information not available 04/23/2023 What Type Of Diet Are You Following? REGULAR [email or web address] Information not available 04/23/2023 Have You Processed Blood Or Body Fluids From An Ebola Virus Disease Patient Without Appropriate PPE? No [email or web address] Information not available 04/23/2023 Do You Reside In Or Have You Traveled To An Area Where Ebola Virus Transmission Is Active? No Information not available 04/23/2023 What Is The Highest Grade Or Level Of School You Have Completed Or The Highest Degree You Have Received? [id number] [email or web address] Information not available 04/23/2023 Have There Been Any Changes To Your Family Or Social Situation? No [email or web address] Information no t available 04/23/2023 What Is The Fluoride Status Of Your Home? Unknown [email or web address] Information not available 04/23/2023 Are There Any Guns Present In Your Home? No Information not available 04/23/2023 Do You Use Insect Repellent Routinely? No [email or web address] Information not available 04/23/2023 What Was The Date Of Your Most Recent Tobacco Screening? 09/15/2024 Information not available 09/15/2024 How Many Children Do You Have? 4 Information not available 04/23/2023 Are There Any Occupational Health Risks Where You Work? No Information not available 08/24/2022 Do You Have Any Pets? No [email or web address] Information not available 04/23/2023 Do You Use Protection During Sex? No Information not available 08/24/2022 What Is Your Relationship Status? [email or web address] Information not available 04/23/2023 Do You Use Your Seat Belt Or Car Seat Routinely? Yes Information not available 04/23/2023 Are You Sexually Active? Yes Information not available 08/24/2022 Do You Have Smoke And Carbon Monoxide Detectors In Your Home? Yes [email or web address] Information not available 04/23/2023 Are You Passively Exposed To Smoke? No [email or web address] Information no t available 04/23/2023 What Types Of Sporting Activities Do You Participate In? No [email or web address] Information not available 04/23/2023 Do You Use Sunscreen Routinely? No [email or web address] Information not available 04/23/2023 Do You Have Difficulty Walking Or Climbing Stairs? Yes Left Knee Is Bother Her For 2 Weeks Now [email or web address] Information not available 04/23/2023 Sex: Unknown Functional Status Question Answer Note LastModified by Organization Details LastModified Time Do you use any illicit or recreational drugs? No [email or web address] Information not available 04/23/2023 Do you or have you ever used any other forms of tobacco or nicotine? No Information not available 04/23/2023 What is your level of alcohol consumption? None Information not available 08/24/2022 Are you currently employed? Yes [employer] [email or web address] Information not available 04/23/2023 Do you have transportation difficulties? No Information not available 04/23/2023 Do you have difficulty doing errands alone? No Information not available 04/23/2023 Are you able to care for yourself independently? 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 No [email or web address] Information not available 04/23/2023 What is your exercise level? None [email or web address] Information not available 04/23/2023 Mental Status Question Answer Note LastModified by Organizat ion Details LastModified Time Do you feel stressed (tense, restless, nervous, or anxious, or unable to sleep at night)? [id number] [email or web address] Information not available 04/23/2023 Do you have difficulty concentrating, remembering or making decisions? No [email or web address] Information no t available 04/23/2023 Family History Relationship Description Onset Age of this Age Resolved Age Notes LastModified by Organization Details LastModified Time Paternal Grandmother Heart disease [email or web address] Not available 2022 14:33:28 Father Kidney disease Not available 04/23 18:01:28 Father Heart disease [email or web address] Not available 2022 14:34:38 Father Congestive heart failure Not available 04/23 18:01:28 Mother Diabetes mellitus [email or web address] Not available 2022 14:34:20 Maternal Uncle Diabetes mellitus Not available 2022 15:28:49 Maternal Uncle Carcinoma of prostate -- dx'd at around 66 y/o Not available 04/23/2023 18:01:28 Maternal Uncle Multiple myeloma -- dx'd at 66 y/o [email or web address] Not available 04/23/2023 18:01:28 Medical History Condition [...] SNOMED-CT Code Diagnosis ICD10 Code Diagnosis Note [id number] Frank Mcknight MD [place] [employer], [facility] [address] [place] [address] 08/24/2022 13:57:20 08/24/2022 16:07:46 Seasonal allergic rhinitis 973339094 J30.2 Migraine 58841071 G43.90 9 (dx'd when she was in her 20s) -- mainly around her cycles Polyp of colon 89651343 K63.5 -- will need to get colonosc & path report from Gastroentr ologist Dr Kuldeep Glynn Hemorrhoids 43430250 K64 .9 Goiter 0374352 E04.9 (RT>>LT) Vitamin D deficiency 347 63190 E55.9 Fatigue 67302143 R53.83 (improved w/ Vit D) Hyperlipidemia 90678018 E78.5 Amenorrhea 09425712 N91. 2 Body mass index 30+ - obesity 728650663 Z68.39 -- BMI of 32.9 (ideal is between 20-25)-- will advise weight loss Hepatitis C screening 41 3773264 Z11.59 HIV screening 711656622 Z11.4 Active or passive immunization 768428718 Z23 Screening for malignant neoplasm of colon 216599499 Z12.11 -- had colonoscop y with Gastroente rologist Dr Kuldeep Glynn around 2019 Screening for malignant neoplasm of breast 417908853 Z12.31 Screening for malignant neoplasm of cervix 085484932 Z12.4 Screening for osteoporosis 946175418 Z13.820 Pain of le ft knee joint 7629170317 69349 M25.562 Lumbar radiculopathy 128 050926 M54.16 -- started when she was taking care of her biological father [id number] Frank Mcknight MD [place] [employer], [facility] [address] [place] [address] 10/09/2022 17:46:44 10/09/2022 19:56:17 Adult health examination 378894232 Z00.00 Vitamin D deficiency 347 88655 E55.9 Vit D deficiency has been associated w/ increase risks for stroke, cancer, heart attack, dementia, poor immunity, and increased bone loss (risk for easy bone fracture). -- start over-the-c ounter Vit D3 2,000 units 1 gel capsule daily & recheck Vitamin D level in 3 months. Screening for osteoporosis 978403422 Z13.820 Thyroid nodule 494327864 E04.1 Body mass index 30+ - obesity 894856234 Z68.34 -- advised weight loss; pt gained 10 # since her last visit-- BMI of 34.7 (ideal is between 20-25) Hepatitis C screening 41 1613109 Z11.59 -- tested negative for Hepatitis C on 09/23/22 HIV screening 646309933 Z11.4 -- tested negative for HIV on 09/23/22 Active or passive immunization 912550670 Z23 Screening for malignant neoplasm of colon 899024597 Z12.11 -- had colonoscop y with Gastroente rologist Dr Kuldeep Glynn around 2018 Screening for malignant neoplasm of breast 141555672 Z12.31 Gynecologi c examination 25635659 Z01.419 [id number] Frank Mcknight MD [facility], [facility] [address] [place] [address] 04/23/2023 18:01:13 04/23/2023 20:15:15 Vitamin D deficiency 14711258 E55.9 Vit D deficiency has been associated w/ increase risks for stroke, cancer, heart attack, dementia, poor immunity, and increased bone loss (risk for easy bone fracture). -- start over-the-c ounter Vit D3 2,000 units 1 gel capsule daily after thyroid surgery & recheck Vitamin D level in 3 months thereafter . Thyroid nodule 524834115 E04.1 -- pt reported that [facility] told her the thyroid nodule biopsy is cancerous and recommende d resection. -- pt goggled and found [facility] (Dr Rocky Robnis) in [place]. Pt wants to go to [place] for a second opinion. She has appt on 05/01/23.-- pt will be cleared for thyroid surgery in the next 30 days Hyperlipidemia 55577809 E78.5 Based on the current ASCVD risk calculatio n of 1.1% on 10/01/22, no cholestero l Rx needed. Screening for malignant neoplasm of colon 293036650 Z12.11 - Gastroente rologist Dr Kuldeep Glynn recommends repeating colonoscop yt 5 years from 07/15/19 Break-thro ugh bleeding 81792114 N92.1 (menopause d) -- pt instructed to f/u w/ her [employer] Dr Walton in [place] [id number] Frank Mcknight MD [place] [employer] [facility], [facility] [address] [place] [address] 05/09/2023 10:27:08 05/09/2023 11:20:59 Malignant tumor of thyroid gland 910556236 C73 (s/p [facility] (Dr Rocky Robins) in [place] on 05/01/23) -- post surgery, pt reported that Dr Robins recommends radioactiv e Iodine. Postoperat deep hypothyroidism 79124160 E89.0 (s/p total thyroidect kevin and neck dissection w/ partial vocal cords removal)-- pt reported that Dr Robins told her he left the Parathyroi d intact-- pt wants referral to [facility]. Abnormal u terine bleeding 0366798654 9100 N93.9 -- pt reported she was told by [employer] Dr Elpidio Cooper that she was post menopaused previously (was amenorrhea for about 2 years -- 03/11/21 was last day of her cycle but cycle came back Mar 2023)-- pt states her [employer] Dr Cooper now told her that her ovaries has started producing estrogen again-- pt wants a second opinion; pt requesting referral to Dr Elliot Logan [id number] Frank [facility]ck[facility] MD [facility] [address] [place] [address] 05/30/2023 12:30:59 05/30/2023 14:40:40 Atypical chest pain 765019832 R07.89 (occasiona l heaviness) -- check labs today Vitamin D deficiency 347 56396 E55.9 Vit D deficiency has been associated w/ increase risks for stroke, cancer, heart attack, dementia, poor immunity, and increased bone loss (risk for easy bone fracture). -- start over-the-c ounter Vit D3 2,000 units 1 gel capsule daily after thyroid surgery & recheck Vitamin D level in 3 months thereafter .-- check labs today Hyperlipidemia 16123128 E78.5 Based on the current ASCVD risk calculatio n of 1.1% on 10/01/22, no cholestero l Rx needed.-- check labs today Postoperat deep hypothyroidism 36484315 E89.0 (s/p total thyroidect kevin and neck dissection w/ partial vocal cords removal)-- pt reported that Dr Robins told her he left the Parathyroi d intact-- pt wants referral to [facility].-- check labs today Body mass index 30+ - obesity 938289775 Z68.32 -- advised weight loss; pt lost 4 # since her last visit-- BMI of 32.8 (ideal is between 20-25) Pain in left foot 403413 1434 87393 M79.672 (since beginning of Mar 2023; pt thinks it is from wearing bad shoes) Screening for osteoporosis 698078003 Z13.820 -- Bone density done on 12/12/22 [id number] Frank [facility]cknight [facility] [place] [facility] [address] [place] [address] 08/07/2023 11:02:04 08/07/2023 13:03:29 Atypical chest pain 098957187 R07.89 (occasiona l heaviness) -- last time she had heaviness was on the weeking 2 days ago-- chest CTA on 06/04/23 showed mild cardiomega ly & 3 mm nodule in the posterior right apical lung.-- normal cardiac echo on 06/27/23-- pt is not anemic on 05/30/23 Vitamin D deficiency 347 06232 E55.9 Vit D deficiency has been associated w/ increase risks for stroke, cancer, heart attack, dementia, poor immunity, and increased bone loss (risk for easy bone fracture). -- start over-the-c ounter Vit D3 2,000 units 1 gel capsule daily after thyroid surgery & recheck Vitamin D level around 08/30/23 Hyperlipidemia 82115960 E78.5 Based on the current ASCVD risk calculatio n of 1.1% on 10/01/22, no cholestero l Rx needed.-- check labs 08/30/23 Postoperat deep hypothyroidism 33899907 E89.0 (s/p total thyroidect kevin and neck dissection w/ partial vocal cords removal)-- pt reported that Dr Robins told her he left the Parathyroi d intact-- pt wants referral to [facility] [place].-- check labs 08/30/23 Pain in left foot 158851 3056 67175 M79.672 (since beginning of Mar 2023; pt thinks it is from wearing bad shoes) -- improving since off work Body mass index 30+ - obesity 533281145 Z68.32 -- advised weight loss; pt lost 2 # since her last visit-- BMI of 32.4 (ideal is between 20-25) Screening for osteoporosis 968894644 Z13.820 -- Bone density done on 12/12/22 Lymphocytosis 07782636 D 72.820 -- check lab(s) on 08/30/23 Solitary n odule of lung 187650047 R91.1 (3 mm Pulmonary nodule in Rt posterior apical lung on chest CTA on 06/04/23) -- need to do chest CT 6 months from 06/04/23. Hepatitis C screening 41 6849594 Z11.59 -- tested negative for Hepatitis C on 09/23/22 HIV screening 764882930 Z11.4 -- tested negative for HIV on 09/23/22 Active or passive immunization 376284700 Z23 Screening for malignant neoplasm of colon 419259752 Z12.11 - Gastroente rologist Dr Kuldeep Glynn recommends repeating colonoscop yt 5 years from 07/15/19 Screening for malignant neoplasm of breast 428928601 Z12.31 -- mammogram done on 12/12/22 Gynecologi c examination 61709756 Z01.419 [id number] Frank Mcknight MD [place] [employer], [facility] [address] [place] [address] 11/01/2023 11:26:36 11/01/2023 13:04:08 Easy bruising 418415026 R58 -- pt advised to stop the Goodys which she takes for headaches. Pt informed that Goodys contains 520 m of Aspirin Vitamin D deficiency 347 82104 E55.9 Vit D deficiency has been associated w/ increase risks for stroke, cancer, heart attack, dementia, poor immunity, and increased bone loss (risk for easy bone fracture). Osteoarthr itis of knee 364877803 M17.9 (evident on xr knee done 09/01/22) Pain of bi lateral hip joints 4428605089 6652302 M25.551 M25.552 (L>>R) Hypothyroidism 32899615 E03.9 -- Increase Levothyrox ine from 125 mcg daily --> to 125 mcg 1 tab every Sun, Sun, & Fridays; 137 mcg 1 tab on the remainder 4 other days (, Sat & Sundays). Recheck TFTs around 11/14/23 Hyperlipidemia 93282778 E78.5 Hyperlipid emia; pt will need to:-- [...] 1/2% & fat free milk is fine). [id number] Frank Mcknight MD [place] [employer], [facility] [address] [place] [address] 03/17/2024 14:02:11 03/17/2024 16:12:09 Adult health examination 517464401 Z00.00 Hyperlipidemia 29080337 E78.5 Hyperlipid emia; pt will need to:-- [...] fat free milk is fine). Easy bruising 469851155 R58 -- pt advised to stop the Goodys which she takes for headaches. Pt informed that Goodys contains 520 m of Aspirin-- on 03/17/24, pt reported the easy bruising has gone since she stopped the Goodys Pain of bi lateral hip joints 3515913796 7239026 M25.551 M25.552 (L>>R) Osteoarthr itis of knee 773997477 M17.9 (evident on xr knee done 09/01/22) Vitamin D deficiency 347 15546 E55.9 Vit D deficiency has been associated w/ increase risks for stroke, cancer, heart attack, dementia, poor immunity, and increased bone loss (risk for easy bone fracture). Atypical chest pain 1025 60237 R07.89 (occasiona l heaviness) -- last time she had heaviness was on the weekend-- chest CTA on 06/04/23 showed mild cardiomega ly & 3 mm nodule in the posterior right apical lung.-- normal cardiac echo on 06/27/23-- pt is not anemic on 05/30/23 Solitary n odule of lung 355430758 R91.1 (3 mm Pulmonary nodule in Rt posterior apical lung on chest CTA on 06/04/23) -- need to do chest CT 6 months from 06/04/23. Postoperat deep hypothyroidism 03505516 E89.0 (s/p total thyroidect kevin and neck dissection w/ partial vocal cords removal)-- pt reported that Dr Robins told her he left the Parathyroi d intact-- pt was referred to [facility] [place] at pt's request -- Increase Levothyrox ine from 125 mcg daily --> to 125 mcg 1 tab every Sun, Sun, & Fridays; 137 mcg 1 tab on the remainder 4 other days (, Sat & Sundays). Recheck TFTs around 11/14/23 -- check labs within 7 days from 03/17/24 Pain in left foot 629780 0944 89650 M79.672 (since beginning of Mar 2023; pt thinks it is from wearing bad shoes) -- improving since off work-- no recurring pain since last visit Body mass index 30+ - obesity 055437632 Z68.33 -- advised weight loss; pt lost 2 # since her last visit-- BMI of 33.1 (ideal is between 20-25) Hepatitis C screening 41 1924058 Z11.59 -- tested negative for Hepatitis C on 09/23/22 HIV screening 566738534 Z11.4 -- tested negative for HIV on 09/23/22 Screening for osteoporosis 585594624 Z13.820 -- Bone density done on 12/12/22 Active or passive immunization 372729490 Z23 -- pt does not want Flu shot Screening for malignant neoplasm of colon 813289078 Z12.11 - Gastroente rologist Dr Kuldeep Glynn recommends repeating colonoscop y 5 years from 08/01/23 Screening for malignant neoplasm of breast 313196045 Z12.31 -- mammogram done on 12/12/22-- on 03/17/24, pt reports she already has appt at [facility] for screening mammogram scheduled for 03/20/24 Gynecologi c examination 43686067 Z01.419 Obstructiv e sleep apnea of adult 6138380369 103 G47.33 -- pt reported she had sleep study done around and was told she had mild sleep apnea on the home sleep study Monocytosis 06291874 D72 .821 -- check labs within 7 days from 03/17/24 [id number] Frank Mcknight MD [facility] [address] [place] [address] 09/15/2024 11:32:56 09/15/2024 13:42:43 Hyperlipidemia 97546209 E78.5 Hyperlipid emia; pt will need to:-- [...] 10/10/24 Pain of bi lateral hip joints 0102936877 7602031 M25.551 M25.552 (L>>R) -- xrays not done as pt forgot Osteoarthr itis of knee 515889851 M17.9 (evident on xr knee done 09/01/22) Vitamin D deficiency 347 62958 E55.9 Vit D deficiency has been associated w/ increase risks for stroke, cancer, heart attack, dementia, poor immunity, and increased bone loss (risk for easy bone fracture). -- check labs on 10/10/24 Postoperat deep hypothyroidism 54737820 E89.0 (s/p total thyroidect kevin and neck dissection w/ partial vocal cords removal)-- pt reported that Dr Robins told her he left the Parathyroi d intact-- pt was referred to [facility] [place] at pt's request -- Increase Levothyrox ine from 125 mcg daily --> to 125 mcg 1 tab every Sun, Sun, & Fridays; 137 mcg 1 tab on the remainder 4 other days (, Sat & Sundays). Recheck TFTs around 11/14/23 -- check labs on 10/10/24 Atypical chest pain 1025 47010 R07.89 (occasiona l heaviness) -- last time she had heaviness was on the weekend-- chest CTA on 06/04/23 showed mild cardiomega ly & 3 mm nodule in the posterior right apical lung.-- normal cardiac echo on 06/27/23-- pt is not anemic on 05/30/23 Solitary n odule of lung 438592249 R91.1 (3 mm Pulmonary nodule in Rt posterior apical lung on chest CTA on 06/04/23) -- need to do chest CT 6 months from 06/04/23 but not done; will re-order Monocytosis 66056925 D72 .821 -- check labs on 10/10/24 Pain in left foot 361551 2540 03234 M79.672 (since beginning of Mar 2023; pt thinks it is from wearing bad shoes) -- improving since off work-- no recurring pain since last visit Easy bruising 973422676 R58 -- pt advised to stop the Goodys which she takes for headaches. Pt informed that Goodys contains 520 m of Aspirin-- on 03/17/24, pt reported the easy bruising has gone since she stopped the Goodys Screening for osteoporosis 067742732 Z13.820 -- Bone density done on 12/12/22 Body mass index 30+ - obesity 692256719 Z68.33 -- advised weight loss; pt gained 7 # since her last visit-- BMI of 34.4 (ideal is between 20-25) Hepatitis C screening 41 0938128 Z11.59 -- tested negative for Hepatitis C on 09/23/22 HIV screening 107792315 Z11.4 -- tested negative for HIV on 09/23/22 Active or passive immunization 153128443 Z23 -- pt does not want Flu shot Screening for malignant neoplasm of colon 591972044 Z12.11 - Gastroente rologist Dr Kuldeep Glynn recommends repeating colonoscop y 5 years from 08/01/23 Screening for malignant neoplasm of breast 019791054 Z12.31 -- mammogram done on 12/12/22-- on 09/15/24, pt reports she already has appt at [facility] for screening mammogram scheduled for 03/20/23 Gynecologi c examination 02927190 Z01.419 Obstructiv e sleep apnea syndrome 32018936 G47.33 -- pt reported on 09/15/24 that [...] Lamb Member ID Guarantor Name 03/17/[address] [facility] [id number] Lurdes Strong [id number] Lurdes Strong 10/03/2024 1 [employer] [id number] Lurdes Strong [id number] Lurdes Strong 03/17/2024 1 [employer] [id number] Lurdes Strong [id number] Lurdes Strong OBGyn Episode No OBEpisode recorded.
--- OUTSIDE RECORDS SUMMARY | 2024-10-13 07:38 | XMS_ITS | Encounter Summary ---
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
--- OUTSIDE RECORDS SUMMARY | 2024-10-13 07:38 | XMS_ITS | Data Portability ---
Author Organization [facility] [place] Address [address] [place] [address] Care Team Providers Care Solar Sales Name Role Phone HAKAN BRADLEY Primary Care [...] hormone panel, serum or plasma 2023 024 [facility] (Lab), [address] [place], [address], 4 04:44:40 prolactin, serum 2023 024 [facility] (Lab), [address] [place], [address], 4 04:44:39 hCG, qualitativ e, serum 2023 024 [facility] (Lab), [address], [place], [address], 4 04:44:40 HbA1c (hemoglobi n A1c), blood 2021 022 [email or web address] [facility] (Lab), [address], [place], [address], 2 16:30:03 Referral None recorded. Procedures None recorded. Surgeries None recorded. Imaging MAMMO, screening, bilateral [id number] [facility], [address], [place], [address], 3 12:19:39 Medication Orders Vitamin D2 1,250 mcg (50,000 unit) capsule 2021 022 [facility] [address], [address] [facility], [place], [address], 2 03:33:37 Patient TargetsNo targets recorded. Patient [...] merritt nted. Not Available [facility] [id number], [place], [address], 11/11/2021 21:45:16 06/10/19 23 06/09/2022 CBC W/DIF F WBC 6.1 10'3/ uL 3.6-10 .2 Not Available [facility] (Lab) [address], [place], [address], 06/10/2022 06:12:50 06/10/19 23 06/09/2022 CBC W/DIF F RBC 4.23 10'6/ uL (based on docume nted legal sex) 4.10-5 .30 Not Available [facility] (Lab) [address], [place], [address], 06/10/2022 06:12:50 06/10/19 23 06/09/2022 CBC W/DIF F HGB 13.0 g/dL (based on docume nted legal sex) 11.9-1 5.8 Not Available [facility] (Lab) [address] [place], [address], 06/10/2022 06:12:50 06/10/19 23 06/09/2022 CBC W/DIF F HCT 41.1 % (based on docume nted legal sex) 37.4-4 8.3 Not Available [facility] (Lab) [address] [place], [address], 06/10/2022 06:12:50 06/10/19 23 06/09/2022 CBC W/DIF F MCV 97.2 fL 82.0-9 9.0 Not Available [facility] (Lab) [address] [place], [address], 06/10/2022 06:12:50 06/10/19 23 06/09/2022 CBC W/DIF F MCH 30.7 pg 27.0-3 3.0 Not Available [facility] (Lab) [address] [place], [address], 06/10/2022 06:12:50 06/10/19 23 06/09/2022 CBC W/DIF F MCHC 31.6 g/dL 32.0-3 6.0 low Not Available [facility] (Lab) [address] [facility], [place], [address], 06/10/2022 06:12:50 06/10/19 23 06/09/2022 CBC W/DIF F RDW 13.2 % 11.0-1 5.0 Not Available [facility] (Lab) [address] [facility], [place], [address], 06/10/2022 06:12:50 06/10/19 23 06/09/2022 CBC W/DIF F plt 316 10'3/ uL 150-45 0 Not Available [facility] (Lab) [address] [facility], [place], [address], 06/10/2022 06:12:50 06/10/19 23 06/09/2022 CBC W/DIF F MPV 10.5 fL 9.8-12 .7 Not Available [facility] (Lab) [address] [facility], [place], [address], 06/10/2022 06:12:50 06/10/19 23 06/09/2022 CBC W/DIF F NRBC's 0.0 % 0 Not Available [facility] (Lab) [address] [facility], [place], [address], 06/10/2022 06:12:50 06/10/19 23 06/09/2022 CBC W/DIF F absolute NRBCs 0.0 10'3/ uL 0 Not Available [facility] (Lab) [address] [facility], [place], [address], 06/10/2022 06:12:50 06/10/19 23 06/09/2022 CBC W/DIF F neutrophils 53.5 % 37.0-7 2.0 Not Available [facility] (Lab) [address] [place], [address], 06/10/2022 06:12:50 06/10/19 23 06/09/2022 CBC W/DIF F lymphocytes 39.1 % 16.0-4 8.0 Not Available [facility] (Lab) [address] [facility], [place], [address], 06/10/2022 06:12:50 06/10/19 23 06/09/2022 CBC W/DIF F monocytes 6.2 % 4.0-14 .0 Not Available [facility] (Lab) [address] [facility], [place], [address], 06/10/2022 06:12:50 06/10/19 23 06/09/2022 CBC W/DIF F eosinophils 0.5 % 0.0-9. 0 Not Available [facility] (Lab) [address] [place], [address], 06/10/2022 06:12:50 06/10/19 23 06/09/2022 CBC W/DIF F basophils 0.5 % 0.0-2. 0 Not Available [facility] (Lab) [address] [place], [address], 06/10/2022 06:12:50 06/10/19 23 06/09/2022 CBC W/DIF F immature granulocytes 0.2 % no define d refere nce range Not Available [facility] (Lab) [address] [place], [address], 06/10/2022 06:12:50 06/10/19 23 06/09/2022 CBC W/DIF F absolute neutrophils 3.3 10'3/ uL 1.1-6. 0 Not Available [facility] (Lab) [address] [place], [address], 06/10/2022 06:12:50 06/10/19 23 06/09/2022 CBC W/DIF F absolute lymphocytes 2.4 10'3/ uL 0.7-3. 4 Not Available [facility] (Lab) [address] [facility], [place], [address], 06/10/2022 06:12:50 06/10/19 23 06/09/2022 CBC W/DIF F absolute monocytes 0.4 10'3/ uL 0.3-1. 0 Not Available [facility] (Lab) [address] [facility], [place], [address], 06/10/2022 06:12:50 06/10/19 23 06/09/2022 CBC W/DIF F absolute eosinophils 0.0 10'3/ uL 0.0-0. 6 Not Available [facility] (Lab) [address] [facility], [place], [address], 06/10/2022 06:12:50 06/10/19 23 06/09/2022 CBC W/DIF F absolute basophils 0.0 10'3/ uL 0.0-0. 1 Not Available [facility] (Lab) [address] [facility], [place], [address], 06/10/2022 06:12:50 06/10/19 23 06/09/2022 CBC W/DIF [...] resul ts are expec charline. Not Available [facility] (Lab) [address] [facility], [place], [address], 06/10/2022 06:12:50 06/10/19 23 06/09/2022 HEMOG LOBIN [...] >8.0% Actio n sugge sted Not Available [facility] (Lab) [address] [place], [address], 06/10/2022 06:12:51 06/10/19 23 06/09/2022 LIPID PANEL ,AMA (LDL- CALC) total cholesterol 175 mg/dL 0-199 Not Available [facility] (Lab) [address] [place], [address], 06/10/2022 06:12:51 06/10/1906/09/2022 LIPID PANEL ,AMA (LDL- CALC) triglyceride s 81 mg/dL 0.00-1 50.00 NCEP Refer ence Value s for Trigl yceri moises: Tiesha l: <150 mg/dL Borde rline High: 150 - 199 mg/dL High: 200 - 499 mg/dL Very High: >/= 500 mg/dL Not Available [facility] (Lab) [address] [place], [address], 06/10/2022 06:12:51 06/10/1906/09/2022 LIPID PANEL ,AMA (LDL- CALC) HDL cholesterol 56 mg/dL >40 Not Available [facility] (Lab) [address] [place], [address], 06/10/2022 06:12:51 06/10/1906/09/2022 LIPID PANEL ,AMA (LDL- [...] mg/dL , HDL <40 mg/dL Not Available [facility] (Lab) [address] [place], [address], 06/10/2022 06:12:51 06/10/19 23 06/09/2022 LIPID PANEL ,AMA (LDL- CALC) non-HDL cholesterol 119 mg/dL no refere nce range A reaso nable goal for non-H DL alyssa stero l is one that is 30 mg/dL highe r than the LDL alyssa stero l goal. Not Available [facility] (Lab) [address] [place], [address], 06/10/2022 06:12:51 06/10/19 23 06/09/2022 LIPID PANEL ,AMA (LDL- CALC) chol/HDL ratio 3.1 . 0.0-5. 0 Not Available [facility] (Lab) [address] [place], [address], 06/10/2022 06:12:51 06/10/19 23 06/09/2022 CMP(C OMPRE HENSI VE METAB OLIC PANEL ) sodium 140 mmol/ L 133-14 6 Not Available [facility] (Lab) [address] [place], [address], 06/10/2022 06:12:52 06/10/19 23 06/09/2022 CMP(C OMPRE HENSI VE METAB OLIC PANEL ) potassium 4.3 mmol/ L 3.5-5. 1 Not Available [facility] (Lab) [address] [place], [address], 06/10/2022 06:12:52 06/10/19 23 06/09/2022 CMP(C OMPRE HENSI VE METAB OLIC PANEL ) chloride 108 mmol/ L 98-107 high Not Available [facility] (Lab) [address] [place], [address], 06/10/2022 06:12:52 06/10/19 23 06/09/2022 CMP(C OMPRE HENSI VE METAB OLIC PANEL ) carbon dioxide 25 mmol/ L 21-31 Not Available [facility] (Lab) [address] [facility], [place], [address], 06/10/2022 06:12:52 06/10/19 23 06/09/2022 CMP(C OMPRE HENSI VE METAB OLIC PANEL ) anion gap 7 mmol/ L 4-13 Not Available [facility] (Lab) [address] [facility], [place], [address], 06/10/2022 06:12:52 06/10/19 23 06/09/2022 CMP(C OMPRE HENSI VE METAB OLIC PANEL ) blood urea nitrogen 18 mg/dL 7-25 Not Available [facility] (Lab) [address] [facility], [place], [address], 06/10/2022 06:12:52 06/10/19 23 06/09/2022 CMP(C OMPRE HENSI VE METAB OLIC PANEL ) creatinine 0.86 mg/dL 0.60-1 .30 Not Available [facility] (Lab) [address] [facility], [place], [address], 06/10/2022 06:12:52 06/10/19 23 06/09/2022 CMP(C OMPRE HENSI VE METAB OLIC PANEL ) egfrcr (CKD-epi 2020) 81 mL/mi n/1.7 3_m2 >=60 Not Available [facility] (Lab) [address] [facility], [place], [address], 06/10/2022 06:12:52 06/10/19 23 06/09/2022 CMP(C OMPRE HENSI VE METAB OLIC PANEL ) calcium 10.2 mg/dL 8.3-10 .5 Not Available [facility] (Lab) [address] [facility], [place], [address], 06/10/2022 06:12:52 06/10/19 23 06/09/2022 CMP(C OMPRE HENSI VE METAB OLIC PANEL ) glucose 89 mg/dL 70-100 Not Available [facility] (Lab) [address] [facility], [place], [address], 06/10/2022 06:12:52 06/10/19 23 06/09/2022 CMP(C OMPRE HENSI VE METAB OLIC PANEL ) protein, total 6.8 g/dL 6.4-8. 3 Not Available [facility] (Lab) [address] [facility], [place], [address], 06/10/2022 06:12:52 06/10/19 23 06/09/2022 CMP(C OMPRE HENSI VE METAB OLIC PANEL ) albumin 4.0 g/dL 3.5-5. 0 Not Available [facility] (Lab) [address] [place], [address], 06/10/2022 06:12:52 06/10/19 23 06/09/2022 CMP(C OMPRE HENSI VE METAB OLIC PANEL ) ALT 8 units /L 9-43 low Not Available [facility] (Lab) [address] [place], [address], 06/10/2022 06:12:52 06/10/19 23 06/09/2022 CMP(C OMPRE HENSI VE METAB OLIC PANEL ) alkaline phosphatase 48 units /L 34-104 Not Available [facility] (Lab) [address] [place], [address], 06/10/2022 06:12:52 06/10/19 23 06/09/2022 CMP(C OMPRE HENSI VE METAB OLIC PANEL ) AST 11 units /L 13-39 low Not Available [facility] (Lab) [address] [place], [address], 06/10/2022 06:12:52 06/10/19 23 06/09/2022 CMP(C OMPRE HENSI VE METAB OLIC PANEL ) bilirubin, total 0.5 mg/dL 0.2-1. 2 Not Available [facility] (Lab) [address] [facility], [place], [address], 06/10/2022 06:12:52 06/10/19 23 06/09/2022 TSH, REFLE X FREE T4 TSH 1.64 uIU/m L 0.30-5 .33 Not Available [facility] (Lab) [address] [facility], [place], [address], 06/10/2022 06:12:52 06/10/19 23 06/09/2022 VITAM IN D, 25-OH (TOTA L D2/D3 ) vitamin D, 25-hydroxy, total 20.5 NG/mL 30.0-1 00.0 low Sugge stive of Defic iency : <20 ng/mL Sugge stive of Insuf ficie ncy: 20-29 ng/mL Sugge stive of Suffi cienc y: 30-10 0 ng/mL Sugge stive of Toxic ity: >150 ng/mL Not Available [facility] (Lab) [address] [facility], [place], [address], 06/10/2022 06:12:53 11/09/19 23 11/08/2022 IMAGE GUIDE D PAP AND HPV REGAR DLESS image guided Pap, HPV regardless of Pap result SEE RESULT S BELOW CASE REPOR T: Cytol ogy Gynec ologi sophie Repor t Case: [id number] Autho dirk g Provi carmella: Juvenal Calabrese Colle cted: 11/08 1016 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 Not Available [facility] (Lab) [address] [facility], [place], [address], 11/09/2022 16:56:01 04/19/19 24 04/19/2023 PROLA CTIN prolactin, total 13.00 NG/mL 4.79-2 3.30 This assay was perfo rmed using [employer] ratio n reage nts and test kits. Value s obtai brittani with other assay metho ds or kits canno t be used inter nava eably . Not Available [facility] (Lab) [address] [facility], [place], [address], 04/20/2023 04:44:39 04/19/19 24 04/19/2023 FSH, LH, [...] 561-2 1280 pg/mL 3rd Trime ster8 525-> 21594 pg/mL Not Available [facility] (Lab) [address] [place], [address], 04/20/2023 04:44:40 04/19/19 24 04/19/2023 FSH, LH, ESTRA DIOL FSH 10.1 mIU/m L This assay was perfo rmed using [employer] reage nts and test kits. Value s obtai brittani with other assay metho ds or kits canno t be used inter [facility]uel . Femal es Folli cular : 3.5-1 2.5 mIU/m L Ovula tion: 4.7-2 1.5 mIU/m L Lutea l: 1.7-7 .7 mIU/m L Postm enopa use: 25.8- 134.8 mIU/m L Not Available [facility] (Lab) [address] [facility], [place], [address], 04/20/2023 04:44:40 04/19/19 24 04/19/2023 FSH, LH, ESTRA DIOL LH 6.7 mIU/m L This assay was perfo rmed using [employer] reage nts and test kits. Value s obtai brittani with other assay metho ds or kits canno t be used inter [facility] . Femal es Mid-F ollic ular: 2.4-1 2.6 mIU/m L Mid-C ycle: 14.0- 95.6 mIU/m L Mid-L uteal : 1.0-1 1.4 mIU/m L Postm enopa use: 7.7-5 8.5 mIU/m L Not Available [facility] (Lab) [address], [place], [address], 04/20/2023 04:44:40 04/19/19 24 04/19/2023 HCG(H UMAN CHORI ONIC GONAD OTROP IN), QUALI TATIV E SERUM bhcg, qualitative, blood Negati ve negati ve Not Available [facility] (Lab) [address] [facility], [place], [address], 04/20/2023 04:44:40 Result Notes None recorded. Problems Name Problem SNOMED Code Status Onset Date Resolution Date Notes Provider Name and Address Organization Details Recorded Time Finding of contents of cervix [id number] Completed 201510/16/2020 Weeks of gestation of not specified ;Recorded Elsewhere : No Locati on: [facility] So urce: EHR Chron ic: N Practic e ID: 0001 Bill able Time: 05:30:00 PM Jerri vazquez [facility] 11:06:20 Finding related to pregnanc y Completed 201510/16/2020 Inapprop chg quantitav hCG in early ;Recorded Elsewhere : No Locati on: [facility] So urce: EHR Chron ic: N Practic e ID: 0001 Bill able Time: 09:15:00 AM Jerri vazquez [facility] 11:06:29 Threaten ed miscarri age [id number] Completed 201610/16/2020 Threatene d ; Practice ID: 0001 Jerri vazquez [facility] 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 11:06:45 Gestatio n less than 9 weeks [id number] Completed 201610/16/2020 Less than 8 weeks gestation of ;Practice ID: 0001 Jerri vazquez [facility] 11:06:31 Missed miscarri age [id number] Completed 201610/16/2020 Missed ; Practice ID: 0001 Jerri vazquez [facility] 11:06:38 Finding of regulari ty of menstrua l cycle Completed 201610/16/2020 Irregular menstruat ion, unspecifi ed;Practi ce ID: 0001 Jerri vazquez [facility] 11:06:24 Pregnanc y test negative [id number] Completed 201610/16/2020 Encounter for test, result negative; [facility] ID[facility] 0001 [facility]:06:[address] Concept Completed 201610/16/2020 Encntr for general adult medical exam w/o abnormal findings; Recorded Elsewhere : No Locati on: [facility] So urce: EHR Chron ic: N Practic e ID: 0001 Bill able Time: 10:30:00 [facility] 11:06:43 Insertio n of intraute rine contrace ptive device Completed 201710/16/2020 Encounter for initial prescript ion of uterin contracep dev;Pract ice ID: 0001 Jerri [facility] 11:06:35 Finding of sensatio n of breast Completed 201710/16/2020 Mastodyni a;Practic e ID: 0001 Jerrisandor Rockwell [facility] 11:06:27 Bleeding [id number] Completed 201710/16/2020 Abnormal uterine and vaginal bleeding, unspecifi ed;Practi ce ID: 0001 Jerrisandor [facility] 11:06:18 Finding of general energy 713695038 Completed 201710/16/2020 Other fatigue;P ractice ID: 0001 Jerri [facility] 11:06:22 Abnormal weight gain 634978833 Completed 201710/16/2020 Abnormal weight gain;Prac alan ID: 0001 Jerrisandor [facility] 11:06:16 Problem Notes None recorded. Procedures Surgical History Date Name Laterality Status Provider Name and Address Organization Details Recorded Time 022 Date of Last Pap Smear completed Angella Aristides [facility] 11/07/2022 18:52:27 021 Endometrial Biopsy completed Anthony Walton MD [address], [place], [address], [facility] 12/04/2020 12:53:[address] [facility] 10/19/2021 18:19:57 020 Date of Last Colonoscopy completed [facility] 10/19/2021 18:19:57 020 Date of Last Mammogram completed [facility] 10/16/2020 11:25:50 [address] [facility] 10/16/2020 11:27:[address] [facility] 10/16/2020 11:26:[address] [facility] 10/16/2020 11:26:[address] [facility] 10/16/2020 11:26:[address] [facility] 10/16/2020 11:26:[address] [facility] 10/19/2021 18:20:05 Imaging Results None recorded. 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 04/18/2023 18:19:40 Date Recorded Body height Body mass index (BMI) Body weight Systolic And Diastolic Provider Name and Address Organization Details Last Updated DateTime 11/07/2022 160.02 cm 35.3 kg/m2 92625.88 g 122/77 mm[Hg] Angella Irving [facility] 11/07/2022 18:52:05 Date Recorded Body height Body mass index (BMI) Body weight Systolic And Diastolic Provider Name and Address Organization Details Last Updated DateTime 11/15/2021 160.02 cm 32.9 kg/m2 64860.18 g 130/79 mm[Hg] [facility] 11/15/2021 17:51:55 Date Recorded Body height Body mass index (BMI) Body weight Systolic And Diastolic Provider Name and Address Organization Details Last Updated DateTime 12/13/2021 160.02 cm 33.5 kg/m2 75864.96 g 125/70 mm[Hg] Jerri Rockwell [facility] 12/13/2021 17:55:41 Social History Question Answer Notes LastModified by Organizat ion Details LastModified Time Tobacco Smoking Status Never Smoker Jerri vazquez [facility] 10/19/2021 18:20:01 Do You Have An [...] Or The Highest Degree You Have Received? [id number] Information not available 10/19/2021 Are There Any [...] anxious, or unable to sleep at night)? [id number] Information not available 10/19/2021 Family History Relationship Description Onset Age of this Age Resolved Age Notes LastModified by Organization Details LastModified Time Father Hyperlipidem ia [email or web address] Not available 2021 18:18:55 Father Carcinoma of prostate Not available 2021 18:18:55 Mother Malignant tumor [...] SNOMED-CT Code Diagnosis ICD10 Code Diagnosis Note [id number] MD Sol Galicia [address] [address] 10/16/2020 10:47:01 10/16/2020 11:52:21 Abnormal uterine bleeding [id number] 9100 N93.9 Gynecologi c examination 42632996 Z01.419 This patient is here for her [...] l - [ordered ] Pap - today [id number] MD Sol Galicia [address],[place] [address] 11/02/2020 08:58:21 11/02/2020 20:57:24 [id number] Anthony Walton MD [facility] [address],[place] [address] 12/04/2020 12:06:08 12/04/2020 15:22:51 Screening procedure [id number] Z13.9 Abnormal u terine bleeding [id number] 9100 N93.9 endometria l biopsy was performed. She tolerated the procedure well. [id number] MD Sol Galicia [address],[place] [address] 10/19/2021 18:18:27 10/21/2021 16:07:48 [id number] MD Sol Galicia [address],[place] [address] 11/05/2021 09:50:08 11/05/2021 10:45:53 Gynecologic examination 72402262 Z01.419 Z11.51 This patient is here for [...] l - [ordered ] Pap - today [id number] Anthony Walton MD [facility] [address] [address] 11/15/2021 16:31:36 11/16/2021 14:30:46 Vitamin D deficiency 88516934 E55.9 Obesity 925521288 E66.9 this patient is a 51-year-ol d [...] She wants resting energy expenditur e testing. [id number] Anthony Walton MD [facility] [address] [address] 11/23/2021 14:33:09 11/24/2021 14:40:46 [id number] Anthony Walton MD [facility] [address] [address] 12/13/2021 17:35:33 12/14/2021 15:10:48 Obesity 490530486 E66.9 this patient is a 51-year-ol d [...] We agreed to follow-up in 1 month. [id number] Maria Ines Chávez [facility] [address] [address] 11/07/2022 18:43:46 11/08/2022 16:33:35 Gynecologic examination 95527627 Z01.419 Take Calcium with Vitamin D 12-1500mg daily. Do monthly self breast exams. It is advised to get annual flu shot in the fall and she could obtain at [facility] or [facility] care clinic. If you haven't [...] Screen [facility] Screening mammography 24 467237 Z12.31 [id number] Anthony Walton MD [facility] [address] [address] 04/18/2023 18:11:07 04/19/2023 09:58:11 Postmenopausal bleeding 94455203 N95.0 52-year-ol d female with an episode [...] Lamb Member ID Guarantor Name 10/19/[address] [facility] [id number] Lurdes Strong [id number] Lurdes Strong 08/08/[address] [facility] Lurdes Strong [id number] Lurdes Strong 10/17/2022 PAYMENT PLAN Lurdes Strong OBGyn Episode Ob Episode Information Episode Created Date Number of Fetuses Patient Bloodtype Patient rh Status Prepregnancy Weight lbs Domestic Partner Domestic Partner Phone Father Name Steel Box Toe Inserter Status 10/17/19 21 1 CLOSED Fetus Data First Name Last Name Admitted to NICU Weight (g) Sex Living Outcome Pediatric Complications Fetus ID Race Codes Race Delivery Type 3656.85 [phone] Repeat Winston Calculation Initial Winston Date Initial [...] Post Complications Tubal Sterilization Discharge Date Comments 11/01/200 9 Discharge Information Feeding Method Contraceptive Method Maternal HG B and HCT Levels Ob Episode Information Episode Created Date Number of Fetuses Patient Bloodtype Patient rh Status Prepregnancy Weight lbs Domestic Partner Domestic Partner Phone Father Name Steel Box Toe Inserter Status 10/17/19 21 1 CLOSED Fetus Data First Name Last Name Admitted to NICU Weight (g) Sex Living Outcome Pediatric Complications Fetus ID Race Codes Race Delivery Type 3770.25 [phone] Repeat Winston Calculation Initial Winston Date Initial [...] Domestic Partner Domestic Partner Phone Father Name Steel Box Toe Inserter Status 10/17/19 21 1 CLOSED Fetus Data First Name Last Name Admitted to NICU Weight (g) Sex Living Outcome Pediatric Complications Fetus ID Race Codes Race Delivery Type 3912.23 1 19302 Repeat Winston Calculation Initial Winston Date Initial [...] Domestic Partner Domestic Partner Phone Father Name Steel Box Toe Inserter Status 10/17/19 21 1 CLOSED Fetus Data First Name Last Name Admitted to NICU Weight (g) Sex Living Outcome Pediatric Complications Fetus ID Race Codes Race Delivery Type 3940.35 [id number] Primary Winston Calculation Initial Winston Date Initial [...]
--- OUTSIDE RECORDS SUMMARY | 2024-10-13 07:38 | XMS_ITS | Encounter Summary ---
Author Organization [facility] Address [address] [place] [address] Phone Care Team Providers Care Rn Support Services Name Role Phone Azar Sanches MD Primary Care Provider [phone] Esvin Carbajal MD Unavailable Esvin Carbajal MD Primary Care Provider [phone] Encounter Details Date Type Department Care Team [...] on file Legal Sex Female 6:23 AM IRON BENDER Gender Identity Not on file Sexual Orientation [...] on filedocumented in this encounter Care Teams Rn Support Services Relationship Specialty Start Date End Date Azar Sanches MD PCP - General Family Medicine 07/10/19 06/07/23 Esvin Carbajal MD [address] [facility] [address] [place] [address] PCP - General Internal Medicine 06/08/23 Esvin Carbajal MD [address] [facility] [address] [place] [address] Referring Physician Internal Medicine 03/15/23 documented as of this encounter
--- OUTSIDE RECORDS SUMMARY | 2024-10-13 07:38 | XMS_ITS | Clinical Summary ---
Author Organization [facility] Address [address] [place] [address] Care Team Providers Care Business Analytics Manager Name Role Phone Esvin Carbajal MD Primary Care Provider [phone] Social History Tobacco Use Types Packs/Day Years [...] patient's age to complete this topic Insurance [facility] Care Teams Business Analytics Manager Relationship Specialty Start Date End Date Esvin Carbajal MD [address] [facility] [address] [place] [address] PCP - General INTERNAL MEDICINE 06/04/23
--- OUTSIDE RECORDS SUMMARY | 2024-10-13 07:38 | XMS_ITS ---
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 Name Role Phone ALLEN REYNOLDS, HARLEY Singh Unavailable Linda Em Unavailable [phone] REASON FOR VISIT eval/surgery Encounters Encounter Location Date Provider Diagnosis [address] [address] 05/01/2023 Linda Em Plan Of Treatment No Information Progress Notes * Hunter STRONGadiaDOB:1970 (54 yo F)Acc No.[id number]:05/01/2023 Patient: Lurdes ALEGRIA Provider: Quan Em MD :1970 A ge:52 Y S ex:Female Date:05/01/2023 Address:[address] [facility] * * Electronic signature of Lazara Em MD on 10/13/2024 at 08:38 AM EDT Sign off status: Pending * Provider: Quan Em MD Date: 05/01/2023 Generated for Minai ng/Fabassamg/eTransmitting on: 0 10/13/2024 08:38 AM EDT
--- OUTSIDE RECORDS SUMMARY | 2024-10-13 07:38 | XMS_ITS | Clinical Summary ---
Author Organization [facility] Address [address] [place] [address] Care Team Providers Care Lan Analyst Name Role Phone Esvin Carbajal MD Unavailable Esvin Carbajal MD Primary Care Provider [phone] Allergies No known active allergies Medications Proctozone-HC [...] water pressure while sleeping. Her DME is [employer] in [place]. Lung nodule 12/10/2023 Assessment & Plan (12/10/2023 [...] preferences Plan biochemical testing today Referral to OR for GARCIA ROV with neck US and [...] 06/26/2019 Assessment & Plan (02/18/2020 4:15 PM SUPERVISOR LAST MODEL DEPARTMENT): History of multiple right thyroid nodules diagnosed [...] cm Pt recently underwent FNA biopsy at [facility] and cytology came back both as benign [...] 09/04/2024 Assessment & Plan (05/05/2024 8:58 AM SUPERVISOR LAST MODEL DEPARTMENT): The patient presents with snoring and excessive daytime hypersomnia. I have recommended proceeding with a nocturnal polysomnogram with a split night protocol if necessary and no MSLT. She will follow up here in 4 months. Other fatigue 08/20/2017 09/04/2024 Overview (06/07/2023): Other fatigue;Practice ID: 0001 Encounters Date Type Department Care Team Description 09/04/2024 8:30 AM CDT Office Visit [facility] Pulmonary [address] [place] [address] Rachael Hdez NP Obstructive sleep apnea [...] file Legal Sex Female 6:23 AM SUPERVISOR LAST MODEL DEPARTMENT Gender Identity Not on file Sexual Orientation [...] Read Routine (OP Routine) 03/20/2024 3:37 PM SUPERVISOR LAST MODEL DEPARTMENT Screening mammogram, encounter for from Last 3 Months or Most Recently Relevant to Health Maintenance Results * Screening Mammogram Bilateral W Moody (03/20/2024 3:37 PM SUPERVISOR LAST MODEL DEPARTMENT) Anatomical Region Laterality Modality Breast Bilateral Mammography Narrative 03/21/2024 10:32 AM SUPERVISOR LAST MODEL DEPARTMENT Mammogram Technique: Bilateral Digital Breast Tomosynthesis, Bilateral C-view 2D Screening mammogram. Views obtained: bilateral craniocaudal and bilateral mediolateral oblique. Computer Aided Detection was performed. Mammogram Findings: The present examination has been compared to a prior imaging study performed at [facility] on 12/12/2022. The breasts are [...] to a prior imaging study performed at [facility] on 12/12/2022. The breasts are heterogeneously [...] Most Recently Relevant to Health Maintenance Insurance [email or web address] ACCESS CHOICE [email or web address] Care Teams Lan Analyst Relationship Specialty Start Date End Date Esvin Carbajal MD [address] [facility] [address] [place] [address] PCP - General Internal Medicine 06/08/23 Esvin Carbajal MD [address] [place] [address] Referring Physician Internal Medicine 03/15/23
--- OUTSIDE RECORDS SUMMARY | 2024-10-13 07:39 | XMS_ITS | Patient Health Record ---
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
--- OUTSIDE RECORDS SUMMARY | 2024-10-13 07:39 | XMS_ITS | Continuity of Care Document ---
Author Organization [facility]. If a dditional information is needed, contact Health Information Management at [phone] Address [address] [place] [address] Phone Care Team Providers Care Build Manager Name Role Phone Unavailable Unavailable Unavailable Unavailable [...] BID Quantity:1 Shimon Alvarez MD Start:01-May-2023 Status:Discontinued Comments:[id number] Administration Instructions:DO NOT CRUSH, CHEW, OR CUT rocuronium bromide 10 MG/ML Injectable Solution;Provider Administration Instructions:Bolus: 1 mg/kg IVP over 1 minuteInitial Rate:10 mcg/kg/min and titrate to desired TOFNOTIFY PHYSICIAN FOR MAX RATE > 16 MCG/KG/MIN Quantity:1 UNGDU Start:01-May-2023 Status:Discontinued Comments:Provider Administration Instructions:Bolus: 1 mg/kg IVP over 1 minuteInitial Rate:10 mcg/kg/min and titrate to desired TOFNOTIFY PHYSICIAN FOR MAX RATE > 16 MCG/KG/MIN LIDOCAINE HCL/PF 2% VIAL (10 0 MG/5 ML) Quantity:1 Start:01-May-2023 Status:Discontinued 2 ML ondansetron 2 MG/ML Injection;Provider Administration Instructions:ADMINISTER SLOW IVP OVER 2 MINUTESIF PATIENT HAS BOTH PHENERGAN (PROMETHAZINE) ANDZOFRAN (ONDANSETRON) ORDERED, GIVE PHENERGAN FIRST ANDZOFRAN 1 HOUR LATER IF THE PHENERGAN IS INEFFECTIVE INRELIEVING NAUSEA AND/OR VOMITING. Quantity:1 Start:01-May-2023 Status:Discontinued Comments:Provider Administration Instructions:ADMINISTER SLOW IVP OVER 2 MINUTESIF PATIENT HAS BOTH PHENERGAN (PROMETHAZINE) ANDZOFRAN (ONDANSETRON) ORDERED, GIVE PHENERGAN FIRST ANDZOFRAN 1 HOUR LATER IF THE PHENERGAN IS INEFFECTIVE INRELIEVING NAUSEA AND/OR VOMITING. 1 ML dexAMETHasone phosphate 10 MG/ML Injection Quantity:1 Start:01-May-2023 Status:Discontinued ceFAZolin 1000 MG Injection;Provider Administration [...]
--- OUTSIDE RECORDS SUMMARY | 2024-10-13 07:39 | XMS_ITS | Continuity of Care Document ---
Author Organization [facility] Address [address] [place] [address] Phone Care Team Providers Care Seasonal Delivery Driver Name Role Phone Azar Sanches MD Unavailable Unavailable Allergies, Adverse Reactions, Alerts Substance Reaction Status Criticality No Known Allergies Active No Inform ation Medications Medication Instructions Dosage Effective Dates (start - stop) Status Comments Vistaril 50 mg capsule take 1 capsule by oral route every bedtime as needed 50 MG - Active PRN for insomnia, avoid driving or operate machines buspirone 10 mg tablet take 1 tablet by oral route 2 times every day 10 MG - Active avoid driving or operate machines Procedures Procedure Date PREV VISIT, EST, AGE 40-64 OFFICE/OUTPATIENT VISIT, EST OFFICE/OUTPATIENT VISIT, EST OFFICE/OUTPATIENT VISIT, EST PREV VISIT, NEW, AGE 40-64 OFFICE/OUTPATIENT VISIT, NEW Advance Directives Directive Yes / No Effective Date File Name No Information Encounters Encounter Description Practice Location Reason(s) For Visit Diagnoses Date Provider Providers Copied on Encounter [facility], [address] [place], [place], [id number], [place] tel:[phone] [facility] No Information 2 Myron Askew. [address] [place], [place], [address] , [place]. tel:[phone] PREV VISIT, EST, AGE 40-64 [facility], [address] [place], [place], [address], [place] tel:[phone] [facility] physical (chief complaint) Encounter for general adult medical examination without abnormal findings 1 Myron Saravia [address], [address], [place], [place], [address] , [place]. tel:[phone] OFFICE/OUTPA TIENT VISIT, [facility], [address], [place], [place], [address], [place] tel:[phone] [facility] goiter1 (chief complaint) fatigue1 (chief complaint) cardiac1 (chief complaint) sleep apnea1 (chief complaint) Cardiac murmurThyroid noduleSleep apnea 0 Myron Saravia [address], [address], [place], [place], [address] , [place]. tel:[phone] OFFICE/OUTPA TIENT VISIT, [facility], [address], [place], [place], [address], [place] tel:[phone] [facility] thyroid nodule1 (chief complaint) calcium1 (chief complaint) hematuria1 (chief complaint) heart (chief complaint) polyp1 (chief complaint) fatigue1 (chief complaint) HematuriaHypercalce miaThyroid noduleCardiac murmurPolyp of colonFatigue 0 Myron Saravia [address], [place], [place], [address] , [place]. tel:[phone] OFFICE/OUTPA TIENT VISIT, [facility], [address], [place], [place], [address], [place] tel:[phone] [facility] murmur1 (chief complaint) hematuria1 (chief complaint) hypercalci um (chief complaint) thyroid nodule1 (chief complaint) sinus (chief complaint) HypercalcemiaHematu riaThyroid noduleCardiac murmurMigraine 0 Myron Saravia [address], [address], [place], [place], [address] , [place]. tel:[phone] PREV VISIT, NEW, AGE 40-64 [facility], [address], [place], [place], [address], [place] tel:[phone] [facility] Family Medicine Physical (chief complaint) Encounter for general adult medical exam w abnormal findingsThyroid noduleCardiac murmurMigraineHemor rhoid 0 Myron Saravia [address], [place], [place], [address] , [place]. tel: [phone] Family History Family Member Type Diagnosis Age At Onset Mother Problem (finding) Diabetes mellitus Father Problem (finding) of enlarged heart 67 Brother Problem (finding) Alive and well Payers Payer name Insurance type Covered green party ID Authoriza tion(s) No Information Social [...] ordered Referral Referred To: Almas Goel [address] [facility] [address] [place], [place], [phone] Ordered: Referrals: Allopathic & Osteopathic Physicians : Internal Medicine : Endocrinology, Diabetes & Metabolism. Almas Goel. Evaluate and treat ordered Referral Ordered: Janette Michaud -Allopathic & Osteopathic Physicians : Internal Medicine : Endocrinology, Diabetes & Metabolism (related to Thyroid nodule) ordered Referral Ordered: Cardiology (related to Cardiac murmur) ordered Referral Ordered: SLEEP STUDY, ATTENDED ordered Referral Ordered: [place] GUIDANCE ordered Referral Ordered: Referrals: Cardiology. Evaluate and treat ordered Referral Ordered: Janette Michaud -Allopathic & Osteopathic Physicians : Internal Medicine : Endocrinology, Diabetes & Metabolism (related to Thyroid nodule) ordered Referral Ordered: MAMMOGRAM, SCREENING ordered Referral Ordered: US THYROID ordered Referral Ordered: COLONOSCOPY AND BIOPSY ordered Referral Ordered: DOPPLER ECHO EXAM, HEART ordered Referral Referred To: Randy Janette Padilla [address] [facility]
[address] [place], [place] [id number] Ordered: Referrals: Allopathic & Osteopathic Physicians : Internal Medicine : Endocrinology, Diabetes & Metabolism. Randy CastañedaJanette grant. Evaluate and treat ordered History Of Present Illness Encounter Date [...]
--- OUTSIDE RECORDS SUMMARY | 2024-10-13 07:39 | XMS_ITS | Clinical Summary ---
Author Organization [facility] Address [address] [place] [address] Care Team Providers Care Internal Grinder Name Role Phone Azar Sanches MD Primary Care Provider [phone] Source Comments [facility] [employer],non-owned Affiliates and Associated Physician Practices is amultiple site organization consisting of ambulatory clinics and hospital sitesin [place], [place], [place] and [place]. This disclosure is being madepursuant to the Care Everywhere program and may not contain all information available regarding this patient. Last updated 17.[facility] [employer] Allergies No known active allergies Medications * [...] to complete this topic Insurance Care Teams Internal Grinder Relationship Specialty Start Date End Date Azar Sanches MD PCP - General 03/15/21
[2024-10-13 07:44] VITALS: BP 117/85; PULSE 67; RESP 16; TEMP 36.4; O2SAT 100
--- NOTE | 2024-10-13 07:59 | ED.GENADULT ---
HPI - General Adult General Chief complaint: Upper Respiratory Infection Stated complaint: sinus infection Time Seen by Provider: 10/13/24 07:42 History of Present Illness HPI narrative: 54-year-old female presents to the emergency department for evaluation for nasal congestion. And was evaluated emergency department a few days ago and diagnosed with upper respiratory infection. Patient states she has not been taking antihistamines regularly she states she took NyQuil once and Benadryl once. Patient was advised to take Tylenol and ibuprofen for pain control and to take a mild decongestant such as Claritin or Zyrtec. Related Data Allergies Allergy/AdvReac Type Severity Reaction Status Date / Time No Known Allergies Allergy Verified 10/13/24 07:47 Review of Systems Review of Systems: All systems reviewed & are unremarkable except as noted in HPI and below PMFSH Past Medical History Medical History No significant past medical history Surgical History Surgical History History of dilation and curettage H/O section x4 Social History Social History Smoking status: Never smoker Living arrangements: with family Gender identity (if verbalized by the patient): Female Exam Narrative: APPEARANCE: Well appearing, no pain, no distress, well-nourished. HEAD: normocephalic, atraumatic. EYES: PERRLA/EOMI, conjunctivae clear. NOSE: Normal no drainage EARS: No acute abnormalities THROAT: Pharynx clear, no exudate. NECK: Supple. No adenopathy, no masses. RESPIRATORY: Airway patent, respirations nonlabored. Clear to auscultation bilaterally, no rales, rhonchi, wheezing. CARDIOVASCULAR: Regular rate and rhythm without murmurs rubs or gallops. ABDOMINAL: Soft, nontender, nondistended, normal bowel sounds MUSCULOSKELETAL: Moves all extremities. Strength/ROM intact, No edema, No calf tenderness. NEURO: Alert. Cranial nerves II through XII intact. Good gait. Good coordination SKIN: Warm, dry. Normal Color Course Vital Signs Vital signs: Vital Signs Temperature 97.6 F 10/13/24 07:44 Pulse Rate 67 10/13/24 07:44 Respiratory Rate 16 10/13/24 07:44 Blood Pressure 117/85 10/13/24 07:44 Pulse Oximetry 100 10/13/24 07:44 Oxygen Delivery Room Air 10/13/24 07:44 Temperature 97.6 F 10/13/24 07:44 Pulse Rate 67 10/13/24 07:44 Respiratory Rate 16 10/13/24 07:44 Blood Pressure 117/85 10/13/24 07:44 Pulse Oximetry 100 10/13/24 07:44 Oxygen Delivery Room Air 10/13/24 08:08 Medical Decision Making Vital Signs Vital Signs: Vital Signs Temperature 97.6 F 10/13/24 07:44 Pulse Rate 67 10/13/24 07:44 Respiratory Rate 16 10/13/24 07:44 Blood Pressure 117/85 10/13/24 07:44 Pulse Oximetry 100 10/13/24 07:44 Oxygen Delivery Room Air 10/13/24 07:44 Temperature 97.6 F 10/13/24 07:44 Pulse Rate 67 10/13/24 07:44 Respiratory Rate 16 10/13/24 07:44 Blood Pressure 117/85 10/13/24 07:44 Pulse Oximetry 100 10/13/24 07:44 Oxygen Delivery Room Air 10/13/24 08:08 Discharge Plan Discharge Clinical Impression: Sinus congestion, Viral infection Patient Disposition: Home Condition: Stable Instructions: Antibiotic Form, Sinusitis (ED), Viral Syndrome (ED) Additional Instructions: Mild decongestion such as Claritin or Zyrtec daily. Drink plenty of fluids. Tylenol and ibuprofen as needed for pain or discomfort. Have close follow-up with your primary care physician. Patient Language: Costa Rican Prescriptions: No Action cyclobenzaprine 7.5 mg tablet 7.5 mg PO HS Qty: 10 0RF Follow-up/Referrals: Solomon,MD Lozano ([place]heng[place]) [Primary Care Provider] -
--- OUTSIDE RECORDS SUMMARY | 2024-10-13 08:04 | XMS_ITS | Encounter Summary ---
Author Organization [facility] Address [address] [place] [address] Phone Care Team Providers Care Slitter Processed Film Name Role Phone Azar Sanches MD Primary Care Provider [phone] Esvin Carbajal MD Unavailable Esvin Carbajal MD Primary Care Provider [phone] Encounter Details Date Type Department Care Team [...] on file Legal Sex Female 6:23 AM ANESTHESIOLOGY TECH Gender Identity Not on file Sexual Orientation [...] on filedocumented in this encounter Care Teams Slitter Processed Film Relationship Specialty Start Date End Date Azar Sanches MD PCP - General Family Medicine 07/10/19 06/07/23 Esvin Carbajal MD [address] [facility] [address] [place] [address] PCP - General Internal Medicine 06/08/23 Esvin Carbajal MD [address] [facility] [address] [place] [address] Referring Physician Internal Medicine 03/15/23 documented as of this encounter
--- OUTSIDE RECORDS SUMMARY | 2024-10-13 08:04 | XMS_ITS | Encounter Summary ---
Author Organization [facility] Address [address] [place] [address] Phone Care Team Providers Care Interactive Developer Name Role Phone Azar Sanches MD Primary Care Provider [phone] Esvin Carbajal MD Unavailable Esvin Carbajal MD Primary Care Provider [phone] Encounter Details Date Type Department Care Team [...] on file Legal Sex Female 6:23 AM MUSIC COPYIST Gender Identity Not on file Sexual Orientation [...] on filedocumented in this encounter Care Teams Interactive Developer Relationship Specialty Start Date End Date Azar Sanches MD PCP - General Family Medicine 07/10/19 06/07/23 Esvin Carbajal MD [address] [facility] [address] [place] [address] PCP - General Internal Medicine 06/08/23 Esvin Carbajal MD [address] [facility] [address] [place] [address] Referring Physician Internal Medicine 03/15/23 documented as of this encounter
--- OUTSIDE RECORDS SUMMARY | 2024-10-13 08:05 | XMS_ITS | Referral Summary ---
Author Organization [facility] Address [address] [place] [address] Care Team Providers Care Commercial Loan Reviewer Name Role Phone Esvin Carbajal MD Unavailable Esvin Carbajal MD Primary Care Provider [phone] Encounters Date Type Department Care Team Description 09/04/2024 8:30 AM CDT Office Visit [facility] Pulmonary [address] [place] [phone] Rachael Hdez, CHANI Obstructive sleep apnea [...] water pressure while sleeping. Her DME is [employer] in [place]. Lung nodule 12/10/2023 Assessment & Plan (12/10/2023 [...] preferences Plan biochemical testing today Referral to [place] for GARCIA ROV with neck US and [...] 06/26/2019 Assessment & Plan (02/18/2020 4:15 PM EVALUATION ASSISTANT): History of multiple right thyroid nodules diagnosed [...] cm Pt recently underwent FNA biopsy at [facility] and cytology came back both as benign [...] 09/04/2024 Assessment & Plan (05/05/2024 8:58 AM EVALUATION ASSISTANT): The patient presents with snoring and excessive [...] on file Legal Sex Female 6:23 AM EVALUATION ASSISTANT Gender Identity Not on file Sexual Orientation [...] Read Routine (OP Routine) 03/20/2024 3:37 PM EVALUATION ASSISTANT Screening mammogram, encounter for from Last 3 Months or Most Recently Relevant to Health Maintenance Results * Screening Mammogram Bilateral W Moody (03/20/2024 3:37 PM EVALUATION ASSISTANT) Anatomical Region Laterality Modality Breast Bilateral Mammography Narrative 03/21/2024 10:32 AM EVALUATION ASSISTANT Mammogram Technique: Bilateral Digital Breast Tomosynthesis, Bilateral C-view 2D Screening mammogram. Views obtained: bilateral craniocaudal and bilateral mediolateral oblique. Computer Aided Detection was performed. Mammogram Findings: The present examination has been compared to a prior imaging study performed at [facility] on 12/12/2022. The breasts are [...] to a prior imaging study performed at [facility] on 12/12/2022. The breasts are [...] Most Recently Relevant to Health Maintenance Insurance [facility] ACCESS CHOICE [facility] ACCESS CHOICE Care Teams Commercial Loan Reviewer Relationship Specialty Start Date End Date Esvin Carbajal MD [address] [place] [address] PCP - General Internal Medicine 06/08/23 Esvin Carbajal MD [address] [place] [address] Referring Physician Internal Medicine 03/15/23
--- OUTSIDE RECORDS SUMMARY | 2024-10-13 08:05 | XMS_ITS | Continuity of Care Document ---
Author Organization [facility] Address [address] [place] [address] [place] [address] Phone Care Team Providers Care Supervisor/Port Director Name Role Phone Aazr Sanches MD Unavailable Unavailable Allergies, Adverse Reactions, [...] Encounter [facility], [address] [place], [place], [id number], [place] tel:[phone] [facility] Medicine No Information 2 Myron Askew. [address] [place], [place], [id number] , [place]. tel:[phone] PREV VISIT, EST, AGE 40-64 [facility], [address] [place], [place], [address], [place] tel:[phone] [facility] physical (chief complaint) Encounter for general adult medical examination without abnormal findings 1 Myron Saravia [address], [place], [place], [id number] , [place]. tel:[phone] OFFICE/OUTPA TIENT VISIT, [facility], [address], [place], [place], [address], [place] tel:[phone] [facility] goiter1 (chief complaint) fatigue1 (chief complaint) cardiac1 (chief complaint) sleep apnea1 (chief complaint) Cardiac murmurThyroid noduleSleep apnea 0 Myron Saravia [address], [place], [place], [id number] , [place]. tel:[phone] OFFICE/OUTPA TIENT VISIT, [facility], [address], [place], [place], [address], [place] tel:[phone] [facility] thyroid nodule1 (chief complaint) calcium1 (chief complaint) hematuria1 (chief complaint) heart (chief complaint) polyp1 (chief complaint) fatigue1 (chief complaint) HematuriaHypercalce miaThyroid noduleCardiac murmurPolyp of colonFatigue 0 Myron Saravia [address], [place], [place], [address] , [place]. tel:[phone] OFFICE/OUTPA TIENT VISIT, [facility], [address], [place], [place], [address], [place] tel:[phone] [facility] murmur1 (chief complaint) hematuria1 (chief complaint) hypercalci um (chief complaint) thyroid nodule1 (chief complaint) sinus (chief complaint) HypercalcemiaHematu riaThyroid noduleCardiac murmurMigraine 0 Myron Saravia [address], [place], [place], [address] , [place]. tel:[phone] PREV VISIT, NEW, AGE 40-64 [facility], [address], [place], [place], [address], [place] tel:[phone] [facility] Physical (chief complaint) Encounter for general adult medical exam w abnormal findingsThyroid noduleCardiac murmurMigraineHemor rhoid 0 Myron Saravia [address], [place], [place], [address] , [place]. tel: [phone] Family History Family Member Type Diagnosis Age At Onset Mother Problem (finding) Diabetes mellitus Father Problem (finding) of enlarged heart 67 Brother Problem (finding) Alive and well Payers Payer name Insurance type Covered alliance party ID Authoriza tion(s) No Information Social [...] ordered Referral Referred To: Almas Goel [address] [facility] [address] [place], [place], [phone] Ordered: Referrals: Allopathic & Osteopathic Physicians : [...] ordered Referral Referred To: Randy Janette Padilla [id number] [facility]
[address] [place], [place] [id number] Ordered: Referrals: Allopathic & Osteopathic Physicians : [...]
--- OUTSIDE RECORDS SUMMARY | 2024-10-13 08:06 | XMS_ITS | Clinical Summary ---
Author Organization [facility] Address [address] [place] [address] Care Team Providers Care Crane Operator Cab Name Role Phone Azar Sanches MD Primary Care Provider [phone] Source Comments [facility],non-owned Affiliates and Associated Physician Practices is amultiple site organization consisting of ambulatory clinics and hospital sitesin [place], [place], [place] and [place]. This disclosure is being madepursuant to the Care Everywhere program and may not contain all information available regarding this patient. Last updated 17.[facility] Allergies No known active allergies Medications * [...] to complete this topic Insurance Care Teams Crane Operator Cab Relationship Specialty Start Date End Date Azar Sanches MD PCP - General 03/15/21
--- OUTSIDE RECORDS SUMMARY | 2024-10-13 08:06 | XMS_ITS | Clinical Summary ---
Author Organization [facility] Address [address] [place] [address] Care Team Providers Care Carpet Finishing Supervisor Name Role Phone Esvin Carbajal MD Primary Care Provider [phone] Social History Tobacco Use Types Packs/Day Years [...] patient's age to complete this topic Insurance [facility] Care Teams Carpet Finishing Supervisor Relationship Specialty Start Date End Date Esvin Carbajal MD [address] [facility] [address] [place] [address] PCP - General INTERNAL MEDICINE 06/04/23
--- OUTSIDE RECORDS SUMMARY | 2024-10-13 08:06 | XMS_ITS | Clinical Summary ---
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 Her DME is [employer] in [place]. Lung nodule 12/10/2023 Assessment & Plan (12/10/2023 [...] preferences Plan biochemical testing today Referral to [place] for GARCIA ROV with neck US and [...] 06/26/2019 Assessment & Plan (02/18/2020 4:15 PM PUBLIC RELATIONS DIRECTOR): History of multiple right thyroid nodules diagnosed [...] cm Pt recently underwent FNA biopsy at [facility] and cytology came back both as [...] 09/04/2024 Assessment & Plan (05/05/2024 8:58 AM PUBLIC RELATIONS DIRECTOR): The patient presents with snoring and excessive daytime hypersomnia. I have recommended proceeding with a nocturnal polysomnogram with a split night protocol if necessary and no MSLT. She will follow up here in 4 months. Other fatigue 08/20/2017 09/04/2024 Overview (06/07/2023): Other fatigue;Practice ID: 0001 Encounters Date Type Department Care Team Description 09/04/2024 8:30 AM CDT Office Visit [facility] [address] [place] [phone] Rachael Hdez NP Obstructive sleep apnea [...] on file Legal Sex Female 6:23 AM PUBLIC RELATIONS DIRECTOR Gender Identity Not on file Sexual Orientation [...] Read Routine (OP Routine) 03/20/2024 3:37 PM PUBLIC RELATIONS DIRECTOR Screening mammogram, encounter for from Last 3 Months or Most Recently Relevant to Health Maintenance Results * Screening Mammogram Bilateral W Moody (03/20/2024 3:37 PM PUBLIC RELATIONS DIRECTOR) Anatomical Region Laterality Modality Breast Bilateral Mammography Narrative 03/21/2024 10:32 AM PUBLIC RELATIONS DIRECTOR Mammogram Technique: Bilateral Digital Breast Tomosynthesis, Bilateral C-view 2D Screening mammogram. Views obtained: bilateral craniocaudal and bilateral mediolateral oblique. Computer Aided Detection was performed. Mammogram Findings: The present examination has been compared to a prior imaging study performed at [facility] on 12/12/2022. The breasts are [...] to a prior imaging study performed at [facility] on 12/12/2022. The breasts are heterogeneously dense, [...] Most Recently Relevant to Health Maintenance Insurance [employer] ACCESS CHOICE [employer] Care Teams Channeling Machine Operator Relationship Specialty Start Date End Date Esvin Carbajal MD [address] [facility] [address] [place] [address] PCP - General Internal Medicine 06/08/23 Esvin Carbajal MD [address] [place] [address] Referring Physician Internal Medicine 03/15/23
== END 2024-10-13 08:09 | disposition home or self-care (01) ==
PROVIDERS: Emergency Provider Emergency Medicine; PCP Internal Medicine
DX: B34.9 Viral infection, unspecified (principal); R09.81 Nasal congestion
CPT/HCPCS: 99281